=== PATIENT | female | born 1935 | race Caucasian/White ===

== ENCOUNTER 2016-09-22 07:09 | Emergency (ER) | payer MEDICARE, OTHER ==
[~2016-09-22] VITALS: Ht 162.6 cm; Wt 49.0 kg
[~2016-09-22 07:09] MED LIST: HUMSS SQ; HYDR-3533 PO; LANTUS2P SC; LEVO.125; TAMS0.4C67 PO; ZOFR4TAB3 SL
[2016-09-22 07:12] VITALS: BP 128/80; PULSE 91; RESP 17; TEMP 97.5; O2SAT 100
[2016-09-22] MEDS ORDERED: DEXTROSE 50% IN WATER 50 ML VIAL(D50) IV PUSH ONE ×2 (07:45→09:45)
--- NOTE | 2016-09-22 07:49 | PD ---
HPI . Insulin overdose Chief Complaint: Diabetic Time Seen by Provider: 07:19 Travel History International Travel<30 days: No Contact w/Intl Traveler<30days: No Traveled to known affect area: No History of Present Illness HPI Patient presents after accidentally taking the wrong kind of insulin this morning. She took regular instead of NPH. She took 18 units at about 6:30 AM. She has had 2 glycerin protein drinks and has used almost a whole bottle of glycerin tablets. She presents stating that she feels shaky. PFSH Past Medical History Diabetes: Yes Thyroid Disease: Yes Menopausal: Yes Social History Alcohol Use: No Tobacco Use: No Substance Use: No Allergies-Medications (Allergen,Severity, Reaction): Coded Allergies: No Known Allergies (Unverified , 09/22/16) Reported Meds & Prescriptions Reported Meds & Active Scripts Active Reported Levothyroxine (Levothyroxine Sodium) 150 Mcg Tab 150 Mcg PO DAILY Novolog Inj (Insulin Aspart) 1,000 Unit/10 Ml Vial 0 SQ DIRECTED Sliding Scale as directed. [trujera] 17 Unit SQ DAILY Review of Systems Except as stated in HPI: all other systems reviewed are Neg General / Constitutional: Positive: Other (shaky) Physical Exam Narrative GENERAL: Awake and alert and in no acute distress. SKIN: Warm and dry. HEAD: Atraumatic. Normocephalic. EYES: Pupils equal and round. Extraocular movements are intact. NECK: Trachea midline. Neck is supple. CARDIOVASCULAR: Regular rate and rhythm. RESPIRATORY: No accessory muscle use. MUSCULOSKELETAL: No obvious deformities. No edema. NEUROLOGICAL: Awake and alert. No obvious cranial nerve deficits. Motor grossly within normal limits. Normal speech. PSYCHIATRIC: Appropriate mood and affect; insight and judgment normal. Data Data Last Documented VS Vital Signs Date Time Temp Pulse Resp B/P Pulse Ox O2 Delivery O2 Flow Rate FiO2 09/22/16 10:20 82 16 119/50 99 Room Air 09/22/16 07:12 97.5 Orders Diet As Tolerated (09/22/16 07:20) Bedside Glucose LAKESHIA.Q1H (09/22/16 08:00) Dextrose 50% In Rahul (Vial) Inj (D50w (Vi (09/22/16 07:45) Dextrose 50% In Rahul (Vial) Inj (D50w (Vi (09/22/16 09:45) MDM Medical Decision Making Medical Screen Exam Complete: Yes Emergency Medical Condition: Yes Differential Diagnosis Differential diagnosis of weakness includes but is not limited to infection, CVA , electrolyte disturbance, renal failure, hypoglycemia, UTI, ACS, acute blood loss Narrative Course Patient presents after inadvertently taking regular insulin instead of long- acting insulin. Her initial fingerstick blood sugar was 133. However, a repeat fingerstick blood sugar just a few minutes later was in the 30s. She is lucid. We will give her D50 and a food tray and monitor her sugars closely. The patient has required 2 doses of D50. She has been fed to meals. She has had 3 fingerstick blood sugars greater than 100 since her last dose of D50. She will be discharged home. Critical Care Narrative Aggregate critical care time was 45 minutes. Time to perform other separately billable procedures was not included in the critical care time. My time did not include minutes spent treating any other patients simultaneously or on activities that did not directly contribute to the patient's treatment. The services I provided to this patient were to treat and/or prevent clinically significant deterioration due to hypoglycemia I provided critical care services requiring my management, as noted below: Chart data review, documentation time, medication orders and management, vital sign assessments/reviewing monitor data, ordering and reviewing lab tests, ordering and interpreting/reviewing x-rays and diagnostic studies, care of the patient and discussion of the patient with the admitting physicians Diagnosis Primary Impression: Insulin overdose Qualified Code: T38.3X1A - Insulin overdose, accidental or unintentional, initial encounter Patient Instructions: General Instructions Disposition: 01 DISCHARGE HOME Condition: Stable Miriam Rainey MD September 22, 2016 07:49
[2016-09-22] MEDS ORDERED: [UNRECOGNIZED DRUG - OTHER] SQ (08:00)
[2016-09-22] MEDS ORDERED: NOVOLOGP2 SQ (08:00)
[2016-09-22] MEDS ORDERED: LEVO150T7 PO (08:00)
[2016-09-22 08:01] VITALS: BP 137/59; PULSE 84; RESP 16; O2SAT 98
[2016-09-22 10:20] VITALS: BP 119/50; PULSE 82; RESP 16; O2SAT 99
[2016-09-22 11:40] VITALS: BP 120/68; PULSE 70; RESP 16; O2SAT 98
== END 2016-09-22 11:56 | disposition home or self-care (01) ==
LOC: PHED 07:09
DX: T38.3X1A Poisoning by insulin and oral hypoglycemic [antidiabetic] drugs, accidental (unintentional), initial encounter (principal); E11.9 Type 2 diabetes mellitus without complications; Z79.4 Long term (current) use of insulin
CPT/HCPCS: 96374; 96376

== ENCOUNTER 2016-11-11 21:50 | Inpatient (IN) | payer MEDICARE, OTHER ==
[~2016-11-11] VITALS: Ht 162.6 cm; Wt 59.0 kg
[~2016-11-11 21:50] MED LIST changes: -HUMSS SQ; -HYDR-3533 PO; -LANTUS2P SC; -LEVO.125; +LEVO150T7 PO; +NOVOLOGP2 SQ; -TAMS0.4C67 PO; -ZOFR4TAB3 SL; +[UNRECOGNIZED DRUG - OTHER] SQ
[2016-11-11 21:52] VITALS: BP 128/56; PULSE 82; RESP 16; TEMP 97.8; O2SAT 96
[2016-11-11] MEDS ORDERED: SODIUM CHLOR 0.9% 1000 ML INJ 1,000 ML IV SCH (22:27)
[2016-11-11] MEDS ORDERED: HUMALOG SQ (22:28)
[2016-11-11] MEDS ORDERED: ONDANSETRON HCL 4 MG/2 ML VIAL IVP ONE (22:30)
[2016-11-11] MEDS ORDERED: SODIUM CHLORIDE 0.9% FLUSH 10 ML FLUSH IV FLUSH PRN (22:30)
[2016-11-11 22:59] LABS: AUTOMATED NEUTROPHIL # 3.9 TH/MM3 (1.8-7.7); BASOPHIL % 0.3 % (0.0-2.0); EOSINOPHIL % 0.9 % (0.0-4.0); HEMATOCRIT 34.6 % (35.0-46.0); HEMO FLAGS DIFF FINAL; LYMPH % 11.2 % (9.0-44.0); LYMPHOCYTE # 0.6 TH/MM3 (1.0-4.8); MEAN CORPUSCULAR HEMOGLOBIN 28.5 PG (27.0-34.0); MEAN CORPUSCULAR HGB CONC 33.5 % (32.0-36.0); MONO % 8.4 % (0.0-8.0); NEUT % 79.2 % (16.0-70.0); PLATELET COUNT 142 TH/MM3 (150-450); RED BLOOD COUNT 4.07 MIL/MM3 (4.00-5.30); RED CELL DISTRIBUTION WIDTH 12.2 % (11.6-17.2); WHITE BLOOD COUNT 4.9 TH/MM3 (4.0-11.0)
[2016-11-11 23:09] VITALS: BP 129/84; PULSE 92; RESP 19; O2SAT 96
[2016-11-11 23:10] LABS: CHLORIDE 101 MEQ/L (98-107); POTASSIUM 4.3 MEQ/L (3.5-5.1); SODIUM (NA) 139 MEQ/L (136-145)
[2016-11-11 23:14] LABS: ANION GAP 9 MEQ/L (5-15); BICARBONATE 29.4 MEQ/L (21.0-32.0); BLOOD UREA NITROGEN 23 MG/DL (7-18)
[2016-11-11 23:17] LABS: ALT (GPT) 741 U/L (10-53); GLOMERULAR FILTRATION RATE 71 ML/MIN (>89)
[2016-11-11 23:18] LABS: TOTAL BILIRUBIN ADULT 2.2 MG/DL (0.2-1.0)
[2016-11-11 23:19] LABS: ALKALINE PHOSPHATASE 405 U/L (45-117)
[2016-11-11 23:24] LABS: AST (GOT) 1537 U/L (15-37)
--- NOTE | 2016-11-11 23:26 | PD ---
HPI Chief Complaint: Abdominal Pain Time Seen by Provider: 22:07 Travel History International Travel<30 days: No Contact w/Intl Traveler<30days: No Traveled to known affect area: No History of Present Illness HPI This 81-year-old woman who presents to the emergency department complaining of right upper quadrant abdominal pain, rating to the back between her shoulder blades worsening over the past several days, and especially bad this afternoon. She's had a history of gallbladder problems in the past and known cholelithiasis. She was told she needed her gallbladder out about a year or so ago but improved. She was doing well until about a week or so ago she started having intermittent symptoms. This afternoon the symptoms got abruptly worse, more persistent, or so she with vomiting. The symptoms of what a little bit now. She otherwise had been feeling well. She had some chills. Just has some constipation that she treatments taking Pepto-Bismol for her symptoms. History Past Medical History Narrative Medical Diabetes Hypothyroidism History of kidney stones Tetanus Vaccination: Unknown Influenza Vaccination: Yes Menopausal: Yes Social History Alcohol Use: No Tobacco Use: No Allergies-Medications (Allergen,Severity, Reaction): Coded Allergies: No Known Allergies (Unverified , 11/11/16) Reported Meds & Prescriptions Reported Meds & Active Scripts Active Reported Humalog Inj (Insulin Human Lispro) 1,000 Unit/10 Ml Vial 1-9 Units SQ ACHS Max dose at bedtime:( )units; sugars< 70,(0)units; sugars 150-199,(1)unit; sugars 200-249,(3)units; sugars 250-299,(5)units; sugars 300-349,(7)units; sugars more than 349,(9)units. Levothyroxine (Levothyroxine Sodium) 150 Mcg Tab 150 Mcg PO DAILY [trujera] 17 Unit SQ DAILY Review of Systems Except as stated in HPI: all other systems reviewed are Neg Physical Exam Narrative GENERAL: 81-year-old woman, no acute distress. SKIN: Focused skin assessment warm/dry. NECK: Trachea midline. No JVD. CARDIOVASCULAR: Regular rate and rhythm. No murmur appreciated. RESPIRATORY: No accessory muscle use. Clear to auscultation. Breath sounds equal bilaterally. GASTROINTESTINAL: Abdomen is flat and soft. Mild right upper quadrant tenderness. No rebound or guarding. Negative Angel's. MUSCULOSKELETAL: No obvious deformities. No clubbing. No cyanosis. No edema. NEUROLOGICAL: Awake and alert. No obvious cranial nerve deficits. Motor grossly within normal limits. Normal speech. PSYCHIATRIC: Appropriate mood and affect; insight and judgment normal. Data Data Last Documented VS Vital Signs Date Time Temp Pulse Resp B/P Pulse Ox O2 Delivery O2 Flow Rate FiO2 11/12/16 00:28 81 20 106/46 98 Room Air 11/11/16 21:52 97.8 Orders Complete Blood Count With Diff (11/11/16 22:27) Comprehensive Metabolic Panel (11/11/16 22:27) Lipase (11/11/16 22:27) Urinalysis - C+S If Indicated (11/11/16 22:27) Iv Access Insert/Monitor (11/11/16 22:27) NPO (11/11/16 22:27) Ondansetron Inj (Zofran Inj) (11/11/16 22:30) Sodium Chlor 0.9% 1000 Ml Inj (Ns 1000 M (11/11/16 22:27) Sodium Chloride 0.9% Flush (Ns Flush) (11/11/16 22:30) Us Abdomen Gallbladder (11/11/16 ) Sodium Chlor 0.9% 1000 Ml Inj (Ns 1000 M (11/12/16 00:30) Piperacil-Tazo 3.375 Gm Premix (Zosyn 3. (11/12/16 00:30) Ondansetron Inj (Zofran Inj) (11/12/16 00:30) Consult General Surgery (11/12/16 ) Lactic Acid (11/12/16 01:03) Admit Order (Ed Use Only) (11/12/16 ) Labs Laboratory Tests Test 11/11/16 22:45 White Blood Count 4.9 TH/MM3 Red Blood Count 4.07 MIL/MM3 Hemoglobin 11.6 GM/DL Hematocrit 34.6 % Mean Corpuscular Volume 85.0 FL Mean Corpuscular Hemoglobin 28.5 PG Mean Corpuscular Hemoglobin 33.5 % Concent Red Cell Distribution Width 12.2 % Platelet Count 142 TH/MM3 Mean Platelet Volume 10.4 FL Neutrophils (%) (Auto) 79.2 % Lymphocytes (%) (Auto) 11.2 % Monocytes (%) (Auto) 8.4 % Eosinophils (%) (Auto) 0.9 % Basophils (%) (Auto) 0.3 % Neutrophils # (Auto) 3.9 TH/MM3 Lymphocytes # (Auto) 0.6 TH/MM3 Monocytes # (Auto) 0.4 TH/MM3 Eosinophils # (Auto) 0.0 TH/MM3 Basophils # (Auto) 0.0 TH/MM3 CBC Comment DIFF FINAL Differential Comment Sodium Level 139 MEQ/L Potassium Level 4.3 MEQ/L Chloride Level 101 MEQ/L Carbon Dioxide Level 29.4 MEQ/L Anion Gap 9 MEQ/L Blood Urea Nitrogen 23 MG/DL Creatinine 0.78 MG/DL Estimat Glomerular Filtration 71 ML/MIN Rate Random Glucose 275 MG/DL Calcium Level 9.2 MG/DL Total Bilirubin 2.2 MG/DL Aspartate Amino Transf 1537 U/L (AST/SGOT) Alanine Aminotransferase 741 U/L (ALT/SGPT) Alkaline Phosphatase 405 U/L Total Protein 6.8 GM/DL Albumin 3.3 GM/DL Lipase 73 U/L [facility] Medical Decision Making Medical Screen Exam Complete: Yes Emergency Medical Condition: Yes Interpretation(s) LABS: CBC unremarkable CMP remarkable for elevated total glucose, elevated total bilirubin, AST ALT and alkaline phosphatase all elevated Lipase 73 Gallbladder ultrasound: Multiple echogenic densities suggestive of stones [place]. Thickening occult later wall and trace fluid around the gallbladder. Dilated common bile duct at 10 mm. Differential Diagnosis Cholelithiasis, choledocholithiasis, cholecystitis, pancreatitis, gastritis, other Narrative Course medical decision making INITIAL: This is a 81-year-old woman presents to the emergency department with right upper quadrant abdominal pain, waxing and waning, suspicious for biliary colic or some medically lithiasis. Symptoms abruptly worsened today and she could be developing cholecystitis. She overall looks fairly well. We'll check labs and ultrasound, likely admission for cholecystitis versus urgent outpatient evaluation with surgery. Cristo Mike MD Nov 11, 2016 23:26
[2016-11-12] VITALS (16 sets, daily range): BP systolic 98–144; BP diastolic 38–65; PULSE 72–85; RESP 16–24; TEMP 97.6–98.7; O2SAT 95–98
--- NOTE | 2016-11-12 00:21 | RADRPT ---
EXAM DATE/TIME: 11/11/2016 23:42 [facility] COMPARISON: CT ABDOMEN & PELVIS W/O CONTRAST, April 23, 2014, 12:48. INDICATIONS : Right upper quadrant pain. MEDICAL HISTORY : Hypothyroidism. Diabetic. Cholelithiasis. SURGICAL HISTORY : Rotator cuff, left. ENCOUNTER: Subsequent ACUITY: 3 days PAIN SCORE: 3/10 LOCATION: Right upper quadrant MEASUREMENTS: LIVER: 13.4 cm length COMMON DUCT: 10 mm RIGHT KIDNEY: 11.0 x 4.6 x 4.5 cm FINDINGS: LIVER: Normal echotexture without focal lesion or ductal dilatation. COMMON DUCT: No intraluminal mass or stone visualized. GALLBLADDER: Multiple echogenic densities are demonstrated within the gallbladder. There is thickening of the gall bladder wall at 9 mm. There is a trace of fluid around the gallbladder. PANCREAS: The visualized portions are within normal limits. Mild dilatation of the pancreatic duct to 2 mm. RIGHT KIDNEY: No evidence of hydronephrosis. There appears to be a 5 mm nonobstructing stone in the midpole of the right kidney. There is a 7 mm echogenic density in the renal parenchyma the mid pole. This is most li nixon a small angiomyolipoma. CONCLUSION: 1. Multiple echogenic densities are seen within the gallbladder suggestive of stones and polyps. Ther e is thickening of the gallbladder wall and there is a trace of fluid around the gallbladder. These f indings can be demonstrated with either acute or chronic cholecystitis. Recommend correlation with jessi montiel's physical, clinical exam and laboratory values. 2. There is dilatation of the common bile duct at 10 mm. 3. 5 mm nonobstructing stone mid pole right kidney. 4. 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 Tre Brantley MD on November 12, 2016 at 0:13 Board Certified Radiologist. This report was verified electronically.
[2016-11-12] MEDS ORDERED: SODIUM CHLOR 0.9% 1000 ML INJ 1,000 ML IV SCH ×2 (00:30→03:09)
[2016-11-12] MEDS ORDERED: PIPERACIL-TAZO 3.375 GM PREMIX 50 ML IV ONE (00:30)
[2016-11-12] MEDS ORDERED: ONDANSETRON HCL 4 MG/2 ML VIAL IV PUSH ONE (00:30)
[2016-11-12 01:08] LABS: BLOOD, URINE NEG (NEG); KETONE, URINE 15 mg/dL (NEG); NITRITE,URINE NEG (NEG); PH, URINE 6.5 (5.0-8.5)
[2016-11-12 01:09] LABS: GLUCOSE,URINE 1000 OR GREATER mg/dL (NEG)
[2016-11-12 01:42] LABS: URINE COLOR AMBER (YELLW/STRAW)
[2016-11-12 01:43] LABS: MUCUS URINE FEW /lpf (OCC)
[2016-11-12 01:44] LABS: COMMENT (UR) CULT NOT INDICATED; CULTURE IF INDICATED CULT NOT INDICATED; SQUAMOUS EPITHELIAL CELL URINE 0-5 /hpf (0-5); WBC, URINE 0-2 /hpf (0-5)
[2016-11-12] MEDS ORDERED: MISCELLANEOUS NURSING INFORMATION XX SCH (03:15)
[2016-11-12] MEDS ORDERED: SODIUM CHLORIDE 0.9% FLUSH 10 ML FLUSH PRN (03:15)
[2016-11-12] MEDS ORDERED: CHLORHEXIDINE GLUCONATE 2 % 1 PACK (2 CLOTHS) TOP PRN (03:15)
[2016-11-12] MEDS ORDERED: BISACODYL 10 MG SUPP RECTAL PRN (03:15)
[2016-11-12] MEDS ORDERED: ACETAMINOPHEN 325 MG TAB PO PRN (03:15)
[2016-11-12] MEDS ORDERED: MAGNESIUM HYDROXIDE SUSP 30 ML CUP PO PRN (03:15)
[2016-11-12] MEDS ORDERED: LACTULOSE SYRUP 20 GM/30 ML CUP PO PRN (03:15)
[2016-11-12] MEDS ORDERED: SENNOSIDES 8.6 MG TAB PO PRN (03:15)
[2016-11-12] MEDS: CHLORHEXIDINE GLUCONATE 2 % 1 PACK (2 CLOTHS) TOP SCH (04:00)
[2016-11-12] MEDS: ONDANSETRON HCL 4 MG/2 ML VIAL IV PRN ×3 (04:26→19:42)
--- NOTE | 2016-11-12 05:22 | HHI.HP ---
[facility] Service Critical Care Medicine Primary Care Physician Anastacio Gurrola, DO Admission Diagnosis cholecystitis, sepsis Diagnosis: Travel History International Travel<30 Days: No Contact w/Intl Traveler <30 Da: No Traveled to Known Affected Are: No History of Present Illness 81-year-old woman presents complaining of right upper quadrant abdominal pain, rating to the back between her shoulder blades worsening over the past several days, and especially bad this afternoon. She's had a history of gallbladder problems in the past and known cholelithiasis. She was told she needed her gallbladder out about a year or so ago but improved. She was doing well until about a week or so ago she started having intermittent symptoms. This afternoon the symptoms got abruptly worse, more persistent, or so she with vomiting. The symptoms of what a little bit now. She otherwise had been feeling well. She had some chills. Ultrasound of the gallbladder perform at the [place] emergency department confirmed the wall thickening, gallbladder suggesting acute cholecystitis. Review of Systems Constitutional: DENIES: Diaphoretic episodes, Fatigue, Fever, Weight gain, Weight loss, Chills, Dizziness, Change in appetite, Night Sweats Endocrine: DENIES: Abnorml menstrual pattern, Heat/cold intolerance, Polydipsia , Polyuria, Polyphagia Eyes: DENIES: Blurred vision, Diplopia, Eye inflammation, Eye pain, Vision loss , Photosensitivity, Double Vision Ears, nose, mouth, throat: DENIES: Tinnitus, Hearing loss, Vertigo, Nasal discharge, Oral lesions, Throat pain, Hoarseness, Ear Pain, Running Nose, Epistaxis, Sinus Pain, Toothache, Odynophagia Respiratory: DENIES: Apneas, Cough, Snoring, Wheezing, Hemoptysis, Sputum production, Shortness of breath Cardiovascular: DENIES: Chest pain, Palpitations, Syncope, Dyspnea on Exertion , PND, Lower Extremity Edema, Orthopnea, Claudication Gastrointestinal: COMPLAINS OF: Abdominal pain, Constipation, Nausea, Anorexia , DENIES: Black stools, Bloody stools, Diarrhea, Vomiting, Difficulty Swallowing Genitourinary: DENIES: Abnormal vaginal bleeding, Dysmenorrhea, Dyspareunia, Sexual dysfunction, Urinary frequency, Urinary incontinence, Urgency, Hematuria , Dysuria, Nocturia, Vaginal discharge Musculoskeletal: DENIES: Joint pain, Muscle aches, Stiffness, Joint Swelling, Back pain, Neck pain Integumentary: DENIES: Abnormal pigmentation, Pruritus, Rash, Nail changes, Breast masses, Breast skin changes, Nipple discharge Hematologic/lymphatic: DENIES: Bruising, Lymphadenopathy Immunologic/allergic: DENIES: Eczema, Urticaria Neurologic: DENIES: Abnormal gait, Headache, Localized weakness, Paresthesias, Seizures, Speech Problems, Tremor, Poor Balance Psychiatric: DENIES: Anxiety, Confusion, Mood changes, Depression, Hallucinations, Agitation, Suicidal Ideation, Homicidal Ideation, Delusions Past Family Social History Allergies: Coded Allergies: No Known Allergies (Unverified , 11/11/16) Past Medical History Diabetes Hypothyroidism History of kidney stones Past Surgical History None Reported Medications Reported Meds & Active Scripts Active Reported Humalog Inj (Insulin Human Lispro) 1,000 Unit/10 Ml Vial 1-9 Units SQ ACHS Max dose at bedtime:( )units; sugars< 70,(0)units; sugars 150-199,(1)unit; sugars 200-249,(3)units; sugars 250-299,(5)units; sugars 300-349,(7)units; sugars more than 349,(9)units. Levothyroxine (Levothyroxine Sodium) 150 Mcg Tab 150 Mcg PO DAILY [trujera] 17 Unit SQ DAILY Active Ordered Medications Current Medications Medications (Trade) Dose Ordered Sig/Herbert Route PRN Reason Start Time Stop Time Status Last Admin Dose Admin Sodium Chloride (NS 1000 ml Inj) 1,000 ml @ 125 mls/hr Q8H IV 11/12/16 03:09 11/12/16 04:26 Sodium Chloride (NS Flush) 2 ml UNSCH PRN .XX FLUSH AFTER USING IV ACCESS 11/12/16 03:15 Sodium Chloride (NS Flush) 2 ml BID .XX 11/12/16 09:00 Acetaminophen (Tylenol) 650 mg Q6H PRN PO PAIN 1-5 AND/OR FEVER >101F 11/12/16 03:15 Morphine Sulfate (Morphine Inj) 2 mg Q2H PRN IV PUSH PAIN SCALE 6 TO 10 11/12/16 03:30 Famotidine (Pepcid Inj) 20 mg Q12HR IV PUSH 11/12/16 09:00 Ondansetron HCl (Zofran Inj) 4 mg Q6H PRN IV NAUSEA OR VOMITING 11/12/16 03:15 11/12/16 04:26 Zolpidem Tartrate (Ambien) 5 mg HS PRN PO INSOMNIA 11/12/16 03:15 Heparin Sodium (Porcine) (Heparin Inj) 5,000 units Q12H SQ 11/12/16 06:00 Miscellaneous Information 1 Q361D XX 11/12/16 03:15 Chlorhexidine Gluconate (Chlorhexidine 2% Cloth) 3 pack Taper DAILY@04 TOP 11/12/16 04:00 11/08/17 03:59 11/12/16 04:00 Chlorhexidine Gluconate (Chlorhexidine 2% Cloth) 3 pack UNSCH PRN TOP HYGIENIC CARE 11/12/16 03:15 Senna/Docusate Sodium (Adele-Colace) 1 tab BID PO 11/12/16 09:00 Magnesium Hydroxide (Milk Of Magnmj Liq) 30 ml Q12H PRN PO MILD - MODERATE CONSTIPATION 11/12/16 03:15 Sennosides (Senokot) 17.2 mg Q12H PRN PO MODERATE - SEVERE CONSTIPATION 11/12/16 03:15 Bisacodyl (Dulcolax Supp) 10 mg DAILY PRN RECTAL SEVERE CONSITIPATION 11/12/16 03:15 Lactulose 30 ml 30 ml DAILY PRN PO SEVERE CONSITIPATION 11/12/16 03:15 Piperacillin Sod/ Tazobactam Sod (Zosyn 3.375 Gm Premix) 50 ml @ 100 mls/hr Q6H IV 11/12/16 06:00 Family History No family history of early coronary disease no history of cancer Social History No history of tobacco alcohol or illicit drug abuse Physical Exam Vital Signs Vital Signs Date Time Temp Pulse Resp B/P Pulse Ox O2 Delivery O2 Flow Rate FiO2 11/12/16 05:00 97.7 77 16 144/65 96 11/12/16 03:45 81 18 119/53 98 11/12/16 02:22 83 16 106/45 95 Room Air 11/12/16 01:28 85 20 106/47 98 11/12/16 01:15 97.6 11/12/16 01:10 98/38 100/42 11/12/16 00:28 81 20 106/46 98 Room Air 11/11/16 23:09 92 19 129/84 96 11/11/16 21:52 97.8 82 16 128/56 96 Physical Exam GENERAL: Well-nourished, well-developed patient. SKIN: Warm and dry. HEAD: Normocephalic. EYES: No scleral icterus. No injection or drainage. NECK: Supple, trachea midline. No JVD or lymphadenopathy. CARDIOVASCULAR: Regular rate and rhythm without murmurs, gallops, or rubs. RESPIRATORY: Breath sounds equal bilaterally. No accessory muscle use. GASTROINTESTINAL: Abdomen soft, mild tenderness in right upper quadrant, nondistended. MUSCULOSKELETAL: No cyanosis, or edema. BACK: Nontender without obvious deformity. No CVA tenderness. EXTREMITIES: No clubbing cyanosis or edema Laboratory Laboratory Tests Test 11/11/16 11/12/16 11/12/16 22:45 00:34 01:09 White Blood Count 4.9 Red Blood Count 4.07 Hemoglobin 11.6 Hematocrit 34.6 Mean Corpuscular Volume 85.0 Mean Corpuscular Hemoglobin 28.5 Mean Corpuscular Hemoglobin 33.5 Concent Red Cell Distribution Width 12.2 Platelet Count 142 Mean Platelet Volume 10.4 Neutrophils (%) (Auto) 79.2 Lymphocytes (%) (Auto) 11.2 Monocytes (%) (Auto) 8.4 Eosinophils (%) (Auto) 0.9 Basophils (%) (Auto) 0.3 Neutrophils # (Auto) 3.9 Lymphocytes # (Auto) 0.6 Monocytes # (Auto) 0.4 Eosinophils # (Auto) 0.0 Basophils # (Auto) 0.0 CBC Comment DIFF FINAL Differential Comment Sodium Level 139 Potassium Level 4.3 Chloride Level 101 Carbon Dioxide Level 29.4 Anion Gap 9 Blood Urea Nitrogen 23 Creatinine 0.78 Estimat Glomerular Filtration 71 Rate Random Glucose 275 Calcium Level 9.2 Total Bilirubin 2.2 Aspartate Amino Transf 1537 (AST/SGOT) Alanine Aminotransferase 741 (ALT/SGPT) Alkaline Phosphatase 405 Total Protein 6.8 Albumin 3.3 Lipase 73 Urine Color ANTOINETTE Urine Turbidity CLEAR Urine pH 6.5 Urine Specific [place] 1.026 Urine Protein TRACE Urine Glucose (UA) 1000 OR GREATER Urine Ketones 15 Urine Occult Blood NEG Urine Nitrite NEG Urine Bilirubin NEG Urine Leukocyte Esterase NEG Urine WBC 0-2 Urine Squamous Epithelial 0-5 Cells Urine Amorphous Sediment FEW Urine Hyaline Casts 6-9 Urine Mucus FEW Microscopic Urinalysis Comment CULT NOT INDICATED Lactic Acid Level 1.5 Date/Time Procedure Status Source Growth 11/12/16 03:40 Aerobic Blood Culture Received Blood Peripheral Pending 11/12/16 03:40 Anaerobic Blood Culture Received Blood Peripheral Pending Result Diagram: 11/11/16 2245 11/11/162244 Assessment and Plan Assessment and Plan Acute cholecystitis - With cholelithiasis - Elevated LFTs - MRCP - Empiric Zosyn - Management per general surgery Hypothyroidism - Levothyroxine Diabetes - Hold long acting insulins prior surgery while nothing by mouth - Insulin sliding scale DVT GI prophylaxis - Teds SCDs subcutaneous heparin and Pepcid Critical Care: The total critical care time was 35 minutes. Time to perform other separately billable procedures was not included in the critical care time. Ben Whittington MD Nov 12, 2016 05:22
[2016-11-12] MEDS ORDERED: DEXTROSE 50% IN WATER 50 ML VIAL(D50) IV PRN (05:30)
[2016-11-12] MEDS ORDERED: GLUCAGON 1 MG/ML VIAL OTHER PRN (05:30)
[2016-11-12] MEDS: HEPARIN SODIUM - SQ 10,000 UNITS/ML VIAL SQ SCH ×2 (06:10→18:09)
[2016-11-12] MEDS: PIPERACIL-TAZO 3.375 GM PREMIX 50 ML IV SCH ×3 (06:10→18:10)
[2016-11-12] MEDS: INSULIN ASPART SUPPLEMENTAL SCALE SQ SCH ×4 (06:29→21:00)
[2016-11-12] MEDS: LEVOTHYROXINE SODIUM 150 MCG TAB PO SCH (09:20)
[2016-11-12] MEDS: DOCUSATE SODIUM 50 MG/SENNA 8.6 MG TAB PO SCH ×2 (09:20→21:00)
[2016-11-12] MEDS: FAMOTIDINE 20 MG/2 ML VIAL IV PUSH SCH ×2 (09:20→21:27)
[2016-11-12] MEDS: SODIUM CHLORIDE 0.9% FLUSH 10 ML FLUSH SCH ×2 (09:20→21:27)
--- NOTE | 2016-11-12 09:59 | PD.CONS ---
cc: Morris Thomas MD [facility] Service CONSULTATION NOTE FOR SURGICAL ATTENDING, DR. MORRIS THOMAS General Surgery Consult Requested By Dr. Whittington Reason for Consult RUQ pain and acute cholecystitis Primary Care Physician Anastacio Gurrola DO History of Present Illness This is a 81 year old female with a past medical history of diabetes mellitus, hypothyroidism, and a history of kidney stones who just moved to the [facility] from [place]. She developed severe right upper quadrant pain that radiates to her back and between her shoulder blades approximately 1 week ago. On afternoon, the pain was so severe she had an appointment with her Primary Care Provider who consulted her to a [employer] (Dr. Coto) . The earliest appointment they had was for November 22. She called her Primary Care Provider back and she prescribed her narcotic pain medications. She does report she has had gallbladder issues in the past. She does have dietary intolerance. An ultrasound of the gallbladder was obtained which showed gallbladder wall thickening and acute cholecystitis. Her white blood cell count is normal. She does have elevated liver enzymes. An MRCP has been ordered to evaluate for common bile duct stone. A General Surgery consultation has been requested for evaluation of acute cholecystitis and laparoscopic cholecystectomy. Review of Systems ROS Limitations: Clinical Condition (awake alert) Constitutional: COMPLAINS OF: Fatigue, Change in appetite Endocrine: DENIES: Polydipsia, Polyuria, Polyphagia Eyes: DENIES: Blurred vision, Diplopia Ears, nose, mouth, throat: DENIES: Hearing loss Respiratory: DENIES: Apneas, Cough Cardiovascular: DENIES: Chest pain Gastrointestinal: COMPLAINS OF: Abdominal pain, Nausea, Vomiting, Anorexia Genitourinary: DENIES: Urinary frequency Musculoskeletal: DENIES: Joint pain Integumentary: DENIES: Abnormal pigmentation Hematologic/lymphatic: DENIES: Bruising Immunologic/allergic: DENIES: Eczema Neurologic: DENIES: Headache, Localized weakness Psychiatric: DENIES: Mood changes, Depression, Hallucinations Past Family Social History Past Medical History Diabetes mellitus Hypothyroidism Past Surgical History Rotator cuff surgery ENT procedures for sinus congestion Lithotripsy Reported Medications Humalog insulin Levothyroxine Allergies: Coded Allergies: No Known Allergies (Unverified , 11/11/16) Active Ordered Medications Current Medications Medications (Trade) Dose Ordered Sig/Herbert Route Start Time Stop Time Status Last Admin (NS 1000 ml Inj) 1,000 ml @ 125 mls/hr Q8H IV 11/12/16 03:09 11/12/16 04:26 (NS Flush) 2 ml UNSCH PRN .XX 11/12/16 03:15 (NS Flush) 2 ml BID .XX 11/12/16 09:00 11/12/16 09:20 (Tylenol) 650 mg Q6H PRN PO 11/12/16 03:15 (Morphine Inj) 2 mg Q2H PRN IV PUSH 11/12/16 03:30 (Pepcid Inj) 20 mg Q12HR IV PUSH 11/12/16 09:00 11/12/16 09:20 (Zofran Inj) 4 mg Q6H PRN IV 11/12/16 03:15 11/12/16 04:26 (Ambien) 5 mg HS PRN PO 11/12/16 03:15 (Heparin Inj) 5,000 units Q12H SQ 11/12/16 06:00 11/12/16 06:10 Miscellaneous Information 1 Q361D XX 11/12/16 03:15 11/12/16 03:15 (Chlorhexidine 2% Cloth) 3 pack Taper DAILY@04 TOP 11/12/16 04:00 11/08/17 03:59 11/12/16 04:00 (Chlorhexidine 2% Cloth) 3 pack UNSCH PRN TOP 11/12/16 03:15 (Adele-Colace) 1 tab BID PO 11/12/16 09:00 11/12/16 09:20 (Milk Of Magnesia Liq) 30 ml Q12H PRN PO 11/12/16 03:15 (Senokot) 17.2 mg Q12H PRN PO 11/12/16 03:15 (Dulcolax Supp) 10 mg DAILY PRN RECTAL 11/12/16 03:15 Lactulose 30 ml 30 ml DAILY PRN PO 11/12/16 03:15 (Zosyn 3.375 Gm Premix) 50 ml @ 100 mls/hr Q6H IV 11/12/16 06:00 11/12/16 06:10 (Synthroid) 150 mcg DAILY@0600 PO 11/12/16 09:00 11/12/16 09:20 (D50w (Vial) Inj) 50 ml UNSCH PRN IV 11/12/16 05:30 (Glucagon Inj) 1 mg UNSCH PRN OTHER 11/12/16 05:30 Family History Noncontributory Social History Denies tobacco use Denies EtOH use Denies illicit drug use Physical Exam Vital Signs Vital Signs Date Time Temp Pulse Resp B/P Pulse Ox O2 Delivery O2 Flow Rate FiO2 11/12/16 06:00 79 11/12/16 05:00 97.7 77 16 144/65 96 11/12/16 03:45 81 18 119/53 98 11/12/16 02:22 83 16 106/45 95 Room Air 11/12/16 01:28 85 20 106/47 98 11/12/16 01:15 97.6 11/12/16 01:10 98/38 100/42 11/12/16 00:28 81 20 106/46 98 Room Air 11/11/16 23:09 92 19 129/84 96 11/11/16 21:52 97.8 82 16 128/56 96 Physical Exam GENERAL: Pleasant 81 year old female resting in bed in no acute distress. SKIN: Warm and dry. HEAD: Atraumatic. Normocephalic. EYES: Pupils equal and round. No scleral icterus. No injection or drainage. ENT: No nasal bleeding or discharge. Mucous membranes pink and moist. NECK: Trachea midline. CARDIOVASCULAR: Regular rate and rhythm. RESPIRATORY: No accessory muscle use. Clear to auscultation. Breath sounds equal bilaterally. GASTROINTESTINAL: Abdomen soft, minimally tender to palpation in RUQ, nondistended. No visible scars on abdomen. MUSCULOSKELETAL: Extremities without clubbing, cyanosis, or edema. No obvious deformities. NEUROLOGICAL: Awake and alert. No obvious cranial nerve deficits. Motor grossly within normal limits. Five out of 5 muscle strength in the arms and legs. Normal speech. PSYCHIATRIC: Appropriate mood and affect; insight and judgment normal. Laboratory Laboratory Tests Test 11/11/16 11/12/16 11/12/16 11/12/16 22:45 00:34 01:09 05:08 White Blood Count 4.9 TH/MM3 Red Blood Count 4.07 MIL/MM3 Hemoglobin 11.6 GM/DL Hematocrit 34.6 % Mean Corpuscular Volume 85.0 FL Mean Corpuscular Hemoglobin 28.5 PG Mean Corpuscular Hemoglobin 33.5 % Concent Red Cell Distribution Width 12.2 % Platelet Count 142 TH/MM3 Mean Platelet Volume 10.4 FL Neutrophils (%) (Auto) 79.2 % Lymphocytes (%) (Auto) 11.2 % Monocytes (%) (Auto) 8.4 % Eosinophils (%) (Auto) 0.9 % Basophils (%) (Auto) 0.3 % Neutrophils # (Auto) 3.9 TH/MM3 Lymphocytes # (Auto) 0.6 TH/MM3 Monocytes # (Auto) 0.4 TH/MM3 Eosinophils # (Auto) 0.0 TH/MM3 Basophils # (Auto) 0.0 TH/MM3 CBC Comment DIFF FINAL Differential Comment Sodium Level 139 MEQ/L Potassium Level 4.3 MEQ/L Chloride Level 101 MEQ/L Carbon Dioxide Level 29.4 MEQ/L Anion Gap 9 MEQ/L Blood Urea Nitrogen 23 MG/DL Creatinine 0.78 MG/DL Estimat Glomerular Filtration 71 ML/MIN Rate Random Glucose 275 MG/DL Calcium Level 9.2 MG/DL Total Bilirubin 2.2 MG/DL Aspartate Amino Transf 1537 U/L (AST/SGOT) Alanine Aminotransferase 741 U/L (ALT/SGPT) Alkaline Phosphatase 405 U/L Total Protein 6.8 GM/DL Albumin 3.3 GM/DL Lipase 73 U/L Urine Color ANTOINETTE Urine Turbidity CLEAR Urine pH 6.5 Urine Specific [place] 1.026 Urine Protein TRACE mg/dL Urine Glucose (UA) 1000 OR GREATER mg/dL Urine Ketones 15 mg/dL Urine Occult Blood NEG Urine Nitrite NEG Urine Bilirubin NEG Urine Leukocyte Esterase NEG Urine WBC 0-2 /hpf Urine Squamous Epithelial 0-5 /hpf Cells Urine Amorphous Sediment FEW Urine Hyaline Casts 6-9 /lpf Urine Mucus FEW /lpf Microscopic Urinalysis Comment CULT NOT INDICATED Lactic Acid Level 1.5 mmol/L Prealbumin 12 MG/DL Test 11/12/16 05:30 Nasal Screen MRSA (PCR) MRSA NOT DETECTED Laboratory Tests Test 11/11/16 11/12/16 11/12/16 11/12/16 22:45 00:34 01:09 05:08 White Blood Count 4.9 Red Blood Count 4.07 Hemoglobin 11.6 Hematocrit 34.6 Mean Corpuscular Volume 85.0 Mean Corpuscular Hemoglobin 28.5 Mean Corpuscular Hemoglobin 33.5 Concent Red Cell Distribution Width 12.2 Platelet Count 142 Mean Platelet Volume 10.4 Neutrophils (%) (Auto) 79.2 Lymphocytes (%) (Auto) 11.2 Monocytes (%) (Auto) 8.4 Eosinophils (%) (Auto) 0.9 Basophils (%) (Auto) 0.3 Neutrophils # (Auto) 3.9 Lymphocytes # (Auto) 0.6 Monocytes # (Auto) 0.4 Eosinophils # (Auto) 0.0 Basophils # (Auto) 0.0 CBC Comment DIFF FINAL Differential Comment Sodium Level 139 Potassium Level 4.3 Chloride Level 101 Carbon Dioxide Level 29.4 Anion Gap 9 Blood Urea Nitrogen 23 Creatinine 0.78 Estimat Glomerular Filtration 71 Rate Random Glucose 275 Calcium Level 9.2 Total Bilirubin 2.2 Aspartate Amino Transf 1537 (AST/SGOT) Alanine Aminotransferase 741 (ALT/SGPT) Alkaline Phosphatase 405 Total Protein 6.8 Albumin 3.3 Lipase 73 Urine Color ANTOINETTE Urine Turbidity CLEAR Urine pH 6.5 Urine Specific [place] 1.026 Urine Protein TRACE Urine Glucose (UA) 1000 OR GREATER Urine Ketones 15 Urine Occult Blood NEG Urine Nitrite NEG Urine Bilirubin NEG Urine Leukocyte Esterase NEG Urine WBC 0-2 Urine Squamous Epithelial 0-5 Cells Urine Amorphous Sediment FEW Urine Hyaline Casts 6-9 Urine Mucus FEW Microscopic Urinalysis Comment CULT NOT INDICATED Lactic Acid Level 1.5 Prealbumin 12 Date/Time Procedure Status Source Growth 11/12/16 03:40 Aerobic Blood Culture Received Blood Peripheral Pending 11/12/16 03:40 Anaerobic Blood Culture Received Blood Peripheral Pending Result Diagram: 11/11/165 11/11/165 Imaging Last Impressions Cholangiopancreatography MRI 11/12/16 0000 Signed Impressions: Service Date/Time: Saturday, November 12, 2016 12:45 - CONCLUSION: Numerous gallstones with at least one filling defect in the distal common bile duct which is dilated to 11 mm. Bilateral lower lobe atelectasis. Bilateral breast augmentation. Cristo Fields MD Gall Bladder Ultrasound 11/11/16 0000 Signed Impressions: Service Date/Time: Friday, November 11, 2016 23:42 - CONCLUSION: 1. Multiple echogenic densities are seen within the gallbladder suggestive of stones and polyps. There is thickening of the gallbladder wall and there is a trace of fluid around the gallbladder. These findings can be demonstrated with either acute or chronic cholecystitis. Recommend correlation with patient's physical, clinical exam and laboratory values. 2. There is dilatation of the common bile duct at 10 mm. 3. 5 mm nonobstructing stone mid pole right kidney. 4. 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 Tre Brantley MD Assessment and Plan Problem List: (1) Acute cholecystitis due to biliary calculus (2) Gallstones and inflammation of gallbladder with obstruction (3) Common bile duct (CBD) obstruction (4) Blood glucose elevated (5) Abdominal pain (6) Elevated LFTs (7) Abnormal findings on diagnostic imaging of liver and biliary tract (8) Abnormal findings on imaging of biliary tract (9) Right upper quadrant abdominal pain Assessment and Plan 81 year old female with RUQ; acute cholecystitis -Elevated liver enzyme -MRCP today shows common duct stones -NPO -IVF - GI consult (she had been referred to Dr. Coto as an outpatient) pending results of MRCP -Follow labs -Will plan for laparoscopic cholecystectomy timing pending clinical state -Thank you for this consult; we will follow with you Discussed Condition With Dr. Martha De Luna Attending Statement NOTE FOR SURGICAL ATTENDING, DR. MORRIS THOMAS I agree with above assessment and plan. The exam, history, and the medical decision-making described in the above note were completed with the assistance of the mid-level provider. I reviewed and agree with the findings presented. Patient seen in the ICU Discussed plan ERCP Dr. Woodson tomorrow 8 AM Tentatively schedule surgery Follow LFTs I attest that I had a [id number] encounter with the patient on the same day, and personally performed and documented my assessment and findings in the medical record. The following services were provided during this hospital visit: Chart data review, vital sign assessments/reviewing monitor data Review of consultations notes if present. Medication orders/review and/or management Ordering and/or reviewing lab tests Ordering and/or interpreting/reviewing x-rays and/or diagnostic studies Care of the patient and discussion of the patient with the care team Documentation time To help prompt me to consider important information that might be impacting today's encounter and assessment, information from prior notes written by myself or my colleagues may have been "brought forward/copy and pasted" into today's note. Problem Qualifiers (1) Gallstones and inflammation of gallbladder with obstruction: Qualified Code: K80.67 - Calculus of gallbladder and bile duct with acute on chronic cholecystitis, with obstruction (2) Abdominal pain: Qualified Code: R10.11 - Right upper quadrant abdominal pain Nirali Patel Nov 12, 2016 09:59 Morris Thomas MD Nov 12, 2016 16:30
--- NOTE | 2016-11-12 13:16 | RADRPT ---
EXAM DATE/TIME: 11/12/2016 12:45 [facility] COMPARISON: No previous studies available for comparison. INDICATIONS : Abnormal US with abdominal pain. MEDICAL HISTORY : Diabetes mellitus type 2. kidnet and gall stones SURGICAL HISTORY : rotator cuff, cataract, kidney stone ENCOUNTER: Subsequent ACUITY: 2 day PAIN SCORE: 3/10 LOCATION: abdomen TECHNIQUE: Multiplanar, multisequence magnetic resonance imaging of the abdomen was performed. High-resolution 3D dataset was utilized to reconstruct maximum-intensity projection (MIP) images. FINDINGS: INTRAHEPATIC BILE DUCTS: Within normal limits. No significant anatomical variant is present. EXTRAHEPATIC BILE DUCTS: The common bile duct measures <11mm> in the distal common bile duct . On the 3-D T2 images there is a defined filling defect measuring 5 mm across. GALLBLADDER: Numerous stones, with no evidence of wall thickening, or pericholecystic fluid. LIVER: Normal size and signal intensity. No concerning liver lesion is identified on this non-contrast exam. PANCREAS: The main pancreatic duct is normal in size. There is no significant anatomical variant. Signal inte nsity is within normal limits. No mass is visualized on this non-contrast exam. OTHER: The remaining visualized structures demonstrate no acute abnormality on this non-contrast exam. Kalie st augmentation. Atelectasis at both lung bases CONCLUSION: Numerous gallstones with at least one filling defect in the distal common bile duct which is dilated to 11 mm. Bilateral lower lobe atelectasis. Bilateral breast augmentation. Cristo Fields MD on November 12, 2016 at 13:12 Board Certified Radiologist. This report was verified electronically.
[2016-11-12] MEDS: DEXT 5%-NACL 0.9% 1000 ML INJ 1,000 ML IV SCH ×2 (14:00→21:27)
--- NOTE | 2016-11-12 19:25 | MB ---
cc: CORNELIA TABARES M.D., GERALD R. D.O. BIANCHI, JOSEPH D. M.D. DATE OF CONSULTATION: 11/12/2016. REASON FOR CONSULTATION: The patient is an 81-year-old white female I was asked to see for further evaluation and management of common bile duct stone. DATE OF : 1935 HISTORY OF PRESENT ILLNESS: Before March, in [place], [place], she was advised undergo cholecystectomy because of symptomatic gallbladder disease. Gallstones were present. Her symptoms improved and she put it off because of her move to this area. About nine ago, she started having right upper quadrant discomfort again with some vomiting of food and then dry heaves. No fever or chills. She noticed intermittently dark urine but she tells me she has been drinking a lot less because of the pain and vomiting. She has had no jaundice. She has intermittent itching. PAST MEDICAL HISTORY: 1. Diabetes. 2. Hypothyroidism. PAST SURGICAL HISTORY: 1. Rotator cuff surgery. 2. ENT surgery for a sinus problem. 3. Lithotripsy for nephrolithiasis. MEDICATIONS ON ADMISSION: 1. Humalog insulin. 2. Levothyroxine. ALLERGIES: NONE KNOWN TO MEDICATIONS. SOCIAL HISTORY: Tobacco use - none. Alcohol use - none. FAMILY HISTORY: Breast cancer. Liver cancer. Colon cancer. Pancreatitis. REVIEW OF SYSTEMS: The patient's last colonoscopy was performed well over ten years ago. She denies lower GI symptomatology. She has had no heartburn or dysphagia or odynophagia. No history of strokes or seizures. No headaches. No vision difficulties. No auditory problems. No urinary symptomatology except for the recent dark urine. No polydipsia or polyuria. No respiratory difficulties. No chest discomforts or palpitations. No history of pancreatic or liver disease. No history of adrenal disease. No current joint pains. No new rashes of any sort. No abnormal bruising. No neurologic symptoms. She has been somewhat depressed since her son . PHYSICAL EXAMINATION: WEIGHT: 52 kg. VITAL SIGNS: Temperature 97.7, pulse 76, blood pressure 144/65. GENERAL: She is alert. She is oriented x3. HEAD, EYES, EARS, NOSE, THROAT: She is anicteric. Extraocular motions are intact. LYMPHATIC: I appreciate no submandibular, cervical, supraclavicular, axillary or epitrochlear adenopathy. LUNGS: Clear to auscultation. HEART: Regular rate and rhythm. No gross murmur or gallop. ABDOMEN: Good bowel sounds with no appreciable bruit. The abdomen is soft and there is mild epigastric tenderness. No masses or hepatosplenomegaly are noted. No Angel's sign is evident. EXTREMITIES: No pedal edema. She does have bilateral Dupuytren's contractures. No palmar erythema. LABORATORY FINDINGS: On admission today, white count 4.9, hemoglobin 11.6, MCV 85, platelets 142,000. Sodium 139, potassium 4.3, BUN 23, creatinine 0.78, lactic acid 1.5, bilirubin 2.2, AST 1537, ALT 741, alkaline phosphatase 405, albumin 3.3, lipase normal at 73. Urinalysis shows 1000 or greater glucose. IMAGING STUDIES: I reviewed the MRCP with the radiologist. Gallstones are evident and at least one distal bile duct stone is evident. The bile duct measures 11 mm in diameter and mild bilateral lower lobe atelectasis is evident. IMPRESSION: Choledocholithiasis without cholangitis. Zosyn has been started. There is no clinical evidence of cholecystitis at this time. We will schedule ERCP with sphincterotomy and stone extraction for tomorrow morning. I have explained the procedure to the patient including potential risks of medication reaction, bleeding, perforation and the risk of pancreatitis. Will prophylax her with indomethacin suppositories. At some point down the road when convenient, follow up screening colonoscopy is indicated because of her family history of colon cancer. MD KAILASH Constantino/SWATHI /5:17 PM /7:19 PM
[2016-11-13] VITALS (10 sets, daily range): BP systolic 124–184; BP diastolic 60–77; PULSE 64–80; RESP 2–18; TEMP 97.4–98.8; O2SAT 91–99
[2016-11-13] MEDS: PIPERACIL-TAZO 3.375 GM PREMIX 50 ML IV SCH ×5 (00:57→23:36)
[2016-11-13] MEDS: CHLORHEXIDINE GLUCONATE 2 % 1 PACK (2 CLOTHS) TOP SCH ×2 (00:58→23:37)
[2016-11-13 04:12] LABS: AUTOMATED NEUTROPHIL # 2.3 TH/MM3 (1.8-7.7); BASOPHIL % 0.5 % (0.0-2.0); EOSINOPHIL # 0.1 TH/MM3 (0-0.4); EOSINOPHIL % 2.4 % (0.0-4.0); HEMATOCRIT 29.3 % (35.0-46.0); HEMO FLAGS DIFF FINAL; LYMPH % 24.3 % (9.0-44.0); LYMPHOCYTE # 0.9 TH/MM3 (1.0-4.8); MEAN CELL VOLUME 86.5 FL (80.0-100.0); MEAN CORPUSCULAR HEMOGLOBIN 28.5 PG (27.0-34.0); MONO % 9.8 % (0.0-8.0); PLATELET COUNT 124 TH/MM3 (150-450); RED BLOOD COUNT 3.39 MIL/MM3 (4.00-5.30); WHITE BLOOD COUNT 3.7 TH/MM3 (4.0-11.0)
[2016-11-13 04:37] LABS: ALT (GPT) 396 U/L (10-53); ANION GAP 9 MEQ/L (5-15); AST (GOT) 306 U/L (15-37); BICARBONATE 24.5 MEQ/L (21.0-32.0); BLOOD UREA NITROGEN 15 MG/DL (7-18); CHLORIDE 110 MEQ/L (98-107); GLOMERULAR FILTRATION RATE 73 ML/MIN (>89); MAGNESIUM 1.5 MG/DL (1.5-2.5); POTASSIUM 3.7 MEQ/L (3.5-5.1); SODIUM (NA) 143 MEQ/L (136-145)
[2016-11-13 04:40] LABS: ALKALINE PHOSPHATASE 265 U/L (45-117); TOTAL BILIRUBIN ADULT 0.8 MG/DL (0.2-1.0)
[2016-11-13] MEDS: HEPARIN SODIUM - SQ 10,000 UNITS/ML VIAL SQ SCH (04:44)
[2016-11-13] MEDS: LEVOTHYROXINE SODIUM 150 MCG TAB PO SCH (04:44)
[2016-11-13] MEDS: DEXT 5%-NACL 0.9% 1000 ML INJ 1,000 ML IV SCH (04:45)
[2016-11-13] MEDS: INSULIN ASPART SUPPLEMENTAL SCALE SQ SCH ×5 (06:31→23:36)
[2016-11-13] MEDS ORDERED: INDOMETHACIN 50 MG SUPP RECTAL ONE (08:00)
--- NOTE | 2016-11-13 08:44 | PD.TRANSFR ---
Transfer Summary Admission Date Nov 12, 2016 at 01:05 Admitting Diagnosis cholecystitis, sepsis Diagnoses: (1) Acute cholangitis Diagnosis: Principal (2) Sepsis Diagnosis: Principal (3) Gallbladder & bile duct stone with obstruction Diagnosis: Principal (4) Elevated LFTs Diagnosis: Principal Transfer Summary/Subjective 81-year-old woman presents complaining of right upper quadrant abdominal pain, radiating to the back between her shoulder blades worsening over the past several days. She's had a history of gallbladder problems in the past and known cholelithiasis. She was told she needed her gallbladder out about a year or so ago but improved. She was doing well until about a week or so ago she started having intermittent symptoms. This afternoon the symptoms got abruptly worse, more persistent, or so she with vomiting. The symptoms of what a little bit now. She otherwise had been feeling well. She had some chills. Ultrasound of the gallbladder perform at the [place] emergency department confirmed the wall thickening, gallbladder suggesting acute cholecystitis. SUBJ 11/13: MRCP done yesterday showed numerous Gallstones and at least one distal bile duct stone. The bile duct measured 11 mm in diameter. Plan for ERCP with sphincterotomy and stone extraction today with Dr. Woodson Objective Vital Signs Date Time Temp Pulse Resp B/P Pulse Ox O2 Delivery O2 Flow Rate FiO2 11/13/16 06:00 66 11/13/16 04:00 98.4 2 129/61 91 11/12/16 02:22 Room Air Intake and Output 11/12/16 11/12/16 11/13/16 08:00 16:00 00:00 Intake Total 2244 ml 1023 ml 763 ml Output Total 0 ml 400 ml Balance 2244 ml 623 ml 763 ml Result Diagram: 11/13/16 0353 11/13/16 0353 Objective Remarks GENERAL: Well-nourished, well-developed patient. No acute distress SKIN: Warm and dry. HEAD: Normocephalic. EYES: No scleral icterus. No injection or drainage. NECK: Supple, trachea midline. No JVD or lymphadenopathy. CARDIOVASCULAR: Regular rate and rhythm without murmurs, gallops, or rubs. RESPIRATORY: Breath sounds equal bilaterally. No accessory muscle use. GASTROINTESTINAL: Abdomen soft, mild tenderness in right upper quadrant, nondistended. MUSCULOSKELETAL: No cyanosis, or edema. BACK: Nontender without obvious deformity. No CVA tenderness. EXTREMITIES: No clubbing cyanosis or edema A/P Assessment and Plan Acute cholangitis/cholecystitis - Cholelithiasis, and choledocholithiasis with probable cholangitis confirmed on MRCP - Plan for ERCP with sphincterotomy and stone extraction today with Dr. Woodson - Empiric Zosyn - Management per general surgery, GI Hypothyroidism - Continue Levothyroxine Diabetes - Hold long acting insulins prior surgery while nothing by mouth - Insulin sliding scale DVT GI prophylaxis - Teds SCDs subcutaneous heparin and Pepcid Critical Care: Level 2 Consult [facility] to assume care in am. Can transfer to Med Surg in the after noon after ERCP if ok with GI Jil Coe MD Nov 13, 2016 08:44
[2016-11-13] MEDS ORDERED: DEXT 5%-NACL 0.9% 1000 ML INJ 1,000 ML IV SCH (08:45)
[2016-11-13] MEDS ORDERED: IOHEXOL 300 MG/ML 50 ML BTL (for RAD DIAG) OTHER ONE (08:51)
[2016-11-13] MEDS ORDERED: PROPOFOL 200 MG/20 ML AMP IV ONE (08:52)
--- NOTE | 2016-11-13 09:51 | GIPROC ---
[facility] [address] [facility]. [facility] [place], [id number] ERCP PROCEDURE REPORT EXAM DATE: 11/13/2016 PATIENT NAME: Chandni De Luna MR #: [id number] BIRTHDATE: 1935 ATTENDING: Zeke Woodson MD ORDER #: [id number] DRIVER MATERIAL HANDLER: Chuck Estevez and Romario Rojo STATUS: inpatient INDICATIONS: The patient is a 81 yr old female here for an ERCP due to choledochlithiasis PROCEDURE PERFORMED: ERCP with shincterotomy and stone extraction MEDICATIONS: Per Anesthesia CONSENT: The patient understands the risks and benefits of the procedure and understands that these risks include, but are not limited to: sedation, allergic reaction, infection, perforation and/or bleeding. Alternative means of evaluation and treatment include, among others: physical exam, x-rays, and/or surgical intervention. The patient elects to proceed with this endoscopic procedure. medical equipment was checked for proper function. Hand hygiene and appropriate measures for infection prevention was taken. After the risks, benefits and alternatives of the procedure were thoroughly explained, Informed was verified, confirmed and timeout was successfully executed by the treatment team. With the patient in left semi-prone position, medications were administered intravenously.The [employer]ax [id number] was passed from the mouth into the esophagus and further advanced from the esophagus into the stomach. From stomach scope was directed to the . Major papilla was aligned with the duodenoscope. The scope position was confirmed fluoroscopically. Rest of the findings/therapeutics are given below. The scope was then completely withdrawn from the patient and the procedure completed. The pulse, BP, and O2 saturation were monitored and documented by the physician and the nursing staff throughout the entire procedure. The patient was cared for as planned according to standard protocol. The patient was then discharged to recovery in stable condition and with appropriate post procedure care. NL esophagus, stomach, duodenum, ampulla, pahcreatic duct. 7mm CBD stone; 10mm sphincterotomy; stone extracted with an 11.5mm ballloon which passed freely three times. No residual filling defects; good drainage. ADVERSE EVENT: None IMPRESSIONS: Ad above RECOMMENDATIONS: NPO until Noon, then clear liquid diet. REPEAT EXAM: Zeke Woodson MD eSigned: Zeke Woodson MD 11/13/2016 9:51 AM cc: Anastacio Meredith M.D. PATIENT NAME: Chandni De Luna MR#: [id number]
[2016-11-13] MEDS ORDERED: DO NOT ADM ANY ANTICOAGULANT DRUGS PRN (10:07)
[2016-11-13] MEDS ORDERED: *ONDANSETRON 4 MG VIAL PERIprocedural Use ONLY ONE (10:19)
[2016-11-13] MEDS ORDERED: *LABETALOL HCL 100 MG/20 ML VIAL PERIprocedural Use ONLY ONE (10:30)
[2016-11-13] MEDS ORDERED: *MEPERIDINE 25 MG INJ VIAL PERIprocedural Use ONLY ONE (10:32)
--- NOTE | 2016-11-13 10:43 | RADRPT ---
EXAM DATE/TIME: 11/13/2016 08:58 [facility] COMPARISON: No previous studies available for comparison. INDICATIONS : Obstruction, stone removal and sphincterotomy. FLUORO TIME: 3.36 minutes IMAGE COUNT: 4 CONTRAST: Instilled by Ordering Physician MEDICAL HISTORY : Renal calculi. Diabetes mellitus type 2, Gallstones SURGICAL HISTORY : None. ENCOUNTER: Initial ACUITY: 1 day PAIN SCORE: Non-responsive. LOCATION: Right upper quadrant FINDINGS: An ERCP was performed by the ordering physician. The images demonstrate no residual filling defects on the delayed images CONCLUSION: ERCP as above. Cristo Fields MD on November 13, 2016 at 10:41 Board Certified Radiologist. This report was verified electronically.
--- NOTE | 2016-11-13 11:11 | HHI.PR ---
Subjective Subjective Notes DAILY PROGRESS NOTE FOR SURGICAL ATTENDING, DR. ARNAV THOMAS Patient had ERCP Doing well Objective Vitals/I&O Vital Signs Date Time Temp Pulse Resp B/P Pulse Ox O2 Delivery O2 Flow Rate FiO2 11/13/16 10:00 97.2 69 18 175/82 94 Nasal Cannula 3 Labs Laboratory Tests Test 11/13/16 03:53 White Blood Count 3.7 Red Blood Count 3.39 Hemoglobin 9.7 Hematocrit 29.3 Mean Corpuscular Volume 86.5 Mean Corpuscular Hemoglobin 28.5 Mean Corpuscular Hemoglobin 33.0 Concent Red Cell Distribution Width 13.0 Platelet Count 124 Mean Platelet Volume 10.0 Neutrophils (%) (Auto) 63.0 Lymphocytes (%) (Auto) 24.3 Monocytes (%) (Auto) 9.8 Eosinophils (%) (Auto) 2.4 Basophils (%) (Auto) 0.5 Neutrophils # (Auto) 2.3 Lymphocytes # (Auto) 0.9 Monocytes # (Auto) 0.4 Eosinophils # (Auto) 0.1 Basophils # (Auto) 0.0 CBC Comment DIFF FINAL Differential Comment Sodium Level 143 Potassium Level 3.7 Chloride Level 110 Carbon Dioxide Level 24.5 Anion Gap 9 Blood Urea Nitrogen 15 Creatinine 0.76 Estimat Glomerular Filtration 73 Rate Random Glucose 267 Lactic Acid Level 0.8 Calcium Level 8.1 Phosphorus Level 1.6 Magnesium Level 1.5 Total Bilirubin 0.8 Aspartate Amino Transf 306 (AST/SGOT) Alanine Aminotransferase 396 (ALT/SGPT) Alkaline Phosphatase 265 Total Protein 5.2 Albumin 2.5 Date/Time Procedure Status Source Growth 11/12/16 03:40 Aerobic Blood Culture Received Blood Peripheral Pending 11/12/16 03:40 Anaerobic Blood Culture Received Blood Peripheral Pending Radiology Last Impressions Cholangiopancreatography MRI 11/12/16 0000 Signed Impressions: Service Date/Time: Saturday, November 12, 2016 12:45 - CONCLUSION: Numerous gallstones with at least one filling defect in the distal common bile duct which is dilated to 11 mm. Bilateral lower lobe atelectasis. Bilateral breast augmentation. Cristo Fields MD Gall Bladder Ultrasound 11/11/16 0000 Signed Impressions: Service Date/Time: Friday, November 11, 2016 23:42 - CONCLUSION: 1. Multiple echogenic densities are seen within the gallbladder suggestive of stones and polyps. There is thickening of the gallbladder wall and there is a trace of fluid around the gallbladder. These findings can be demonstrated with either acute or chronic cholecystitis. Recommend correlation with patient's physical, clinical exam and laboratory values. 2. There is dilatation of the common bile duct at 10 mm. 3. 5 mm nonobstructing stone mid pole right kidney. 4. 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 Tre Brantley MD Cardiovascular: Regular Abdomen: Non-tender Extremities: Perfused Narrative Exam Patient recovered from ERCP No distress A/P Problem List: (1) Common bile duct (CBD) obstruction (2) Acute cholecystitis due to biliary calculus (3) Gallstones and inflammation of gallbladder with obstruction (4) Blood glucose elevated (5) Abdominal pain (6) Elevated LFTs (7) Abnormal findings on diagnostic imaging of liver and biliary tract (8) Abnormal findings on imaging of biliary tract (9) Right upper quadrant abdominal pain (10) S/P ERCP Assessment and Plan 81-year-old female status post ERCP to retrieve a stone in the common duct. Discussed with Dr. Woodson Transfer from [facility] Tentative surgery date Discussed in detail with the patient about lap cholecystectomy possible open Attending Statement NOTE FOR SURGICAL ATTENDING, DR. ARNAV THOMAS I attest that I had a [id number] encounter with the patient on the same day, and personally performed and documented my assessment and findings in the medical record. The following services were provided during this hospital visit: Chart data review, vital sign assessments/reviewing monitor data Review of consultations notes if present. Medication orders/review and/or management Ordering and/or reviewing lab tests Ordering and/or interpreting/reviewing x-rays and/or diagnostic studies Care of the patient and discussion of the patient with the care team Documentation time To help prompt me to consider important information that might be impacting today's encounter and assessment, information from prior notes written by myself or my colleagues may have been "brought forward/copy and pasted" into today's note. Problem Qualifiers (1) Gallstones and inflammation of gallbladder with obstruction: Qualified Code: K80.67 - Calculus of gallbladder and bile duct with acute on chronic cholecystitis, with obstruction (2) Abdominal pain: Qualified Code: R10.11 - Right upper quadrant abdominal pain Arnav Thomas MD Nov 13, 2016 11:11
[2016-11-13] MEDS: FAMOTIDINE 20 MG/2 ML VIAL IV PUSH SCH ×2 (12:26→22:04)
[2016-11-13] MEDS: SODIUM CHLORIDE 0.9% FLUSH 10 ML FLUSH SCH ×2 (12:27→22:03)
[2016-11-13] MEDS: DOCUSATE SODIUM 50 MG/SENNA 8.6 MG TAB PO SCH ×2 (12:28→21:00)
[2016-11-13] MEDS: ONDANSETRON HCL 4 MG/2 ML VIAL IV PRN ×2 (13:58→22:04)
[2016-11-13] MEDS: PROMETHAZINE HCL 25 MG SUPP RECTAL PRN (15:17)
[2016-11-13] MEDS ORDERED: LORazepam 2 MG/ML VIAL ONE (16:06)
[2016-11-13] MEDS ORDERED: LORazepam 2 MG/ML VIAL IV PUSH ONE (16:15)
--- NOTE | 2016-11-13 18:05 | EKG ---
Date Performed: 11/13/2016 Time Performed: 08:42:22 PTAGE: 81 years EKG: Sinus rhythm NONSPECIFIC ST & T-WAVE ABNORMALITY BORDERLINE ECG PREVIOUS TRACING : 04/23/2014 12.20 Compared to prior tracing no significant change DOCTOR: Judah Ceballos Interpretating Date/Time 11/13/2016 18:03:59
[2016-11-13] MEDS: SODIUM CHLOR 0.9% 1000 ML INJ 1,000 ML IV SCH ×2 (18:23→23:36)
[2016-11-14] VITALS (13 sets, daily range): BP systolic 86–166; BP diastolic 48–73; PULSE 76–151; RESP 14–36; TEMP 97.3–98.3; O2SAT 94–100
[2016-11-14] MEDS: INSULIN ASPART SUPPLEMENTAL SCALE SQ SCH ×4 (04:00→21:55)
[2016-11-14] MEDS: PIPERACIL-TAZO 3.375 GM PREMIX 50 ML IV SCH ×3 (05:10→18:51)
[2016-11-14] MEDS: ONDANSETRON HCL 4 MG/2 ML VIAL IV PRN (05:10)
[2016-11-14] MEDS: LEVOTHYROXINE SODIUM 150 MCG TAB PO SCH (05:10)
[2016-11-14 08:13] LABS: AUTOMATED NEUTROPHIL # 5.7 TH/MM3 (1.8-7.7); BASOPHIL % 0.1 % (0.0-2.0); HEMATOCRIT 30.4 % (35.0-46.0); HEMO FLAGS DIFF FINAL; LYMPH % 10.9 % (9.0-44.0); LYMPHOCYTE # 0.7 TH/MM3 (1.0-4.8); MEAN CELL VOLUME 86.7 FL (80.0-100.0); MEAN CORPUSCULAR HEMOGLOBIN 28.6 PG (27.0-34.0); MONO % 4.8 % (0.0-8.0); NEUT % 84.2 % (16.0-70.0); PLATELET COUNT 131 TH/MM3 (150-450); RED CELL DISTRIBUTION WIDTH 12.9 % (11.6-17.2); WHITE BLOOD COUNT 6.8 TH/MM3 (4.0-11.0)
[2016-11-14 08:31] LABS: ALT (GPT) 296 U/L (10-53); ANION GAP 19 MEQ/L (5-15); AST (GOT) 121 U/L (15-37); BICARBONATE 16.8 MEQ/L (21.0-32.0); BLOOD UREA NITROGEN 24 MG/DL (7-18); CHLORIDE 105 MEQ/L (98-107); GLOMERULAR FILTRATION RATE 49 ML/MIN (>89); MAGNESIUM 1.6 MG/DL (1.5-2.5); POTASSIUM 3.8 MEQ/L (3.5-5.1); SODIUM (NA) 141 MEQ/L (136-145)
[2016-11-14 08:34] LABS: ALKALINE PHOSPHATASE 269 U/L (45-117); TOTAL BILIRUBIN ADULT 0.8 MG/DL (0.2-1.0)
[2016-11-14] MEDS: DOCUSATE SODIUM 50 MG/SENNA 8.6 MG TAB PO SCH ×2 (09:35→21:30)
[2016-11-14] MEDS: FAMOTIDINE 20 MG/2 ML VIAL IV PUSH SCH (09:36)
[2016-11-14] MEDS: SODIUM CHLORIDE 0.9% FLUSH 10 ML FLUSH SCH ×2 (09:37→21:31)
--- NOTE | 2016-11-14 11:17 | HHI.GIFU ---
GI Follow-up Note Consult Follow-up Subjective: Patient laying in bed comfortably this am. had upper abd pain and n /v yesterday. mush better today Objective: PHYSICAL EXAMINATION: Vitals signs stable No fever CHEST: Chest is clear to auscultation and percussion. CARDIAC: Regular rate and rhythm with no murmur gallop or rubs. ABDOMEN: Soft, nondistended, minimal tender; no hepatosplenomegaly; bowel sounds are present in all four quadrants. EXTREMITIES: No clubbing, cyanosis, or edema. YARN CONDITIONER: alert and oriented times three. Available Data (labs, X- Rays, Procedues) : LFTs elevated but better ASSESSMENT/PLAN: 1. CBD stone-removed 2. Elevated LFT 3. N/V/abd pain-?pancreatitis ? GB dz. symptoms better now PLAN: 1. GB removal soon It was a pleasure seeing Chandni De Luna. Thank you for this consult. Entered by: Omero Manuel MD Nov 14, 2016 11:17
--- NOTE | 2016-11-14 14:09 | HHI.PR ---
Subjective Subjective Notes DAILY PROGRESS NOTE FOR SURGICAL ATTENDING, DR. MORRIS THOMAS Ambulating with PT She feels better Had an episode of atrial fibrillation cleared by cardiology for surgery tomorrow Objective Vitals/I&O Vital Signs Date Time Temp Pulse Resp B/P Pulse Ox O2 Delivery O2 Flow Rate FiO2 11/14/16 12:00 98.3 135 18 95/50 98 11/13/16 10:45 Room Air 11/13/16 10:15 3 Labs Laboratory Tests Test 11/14/16 07:31 White Blood Count 6.8 Red Blood Count 3.50 Hemoglobin 10.0 Hematocrit 30.4 Mean Corpuscular Volume 86.7 Mean Corpuscular Hemoglobin 28.6 Mean Corpuscular Hemoglobin 33.0 Concent Red Cell Distribution Width 12.9 Platelet Count 131 Mean Platelet Volume 10.2 Neutrophils (%) (Auto) 84.2 Lymphocytes (%) (Auto) 10.9 Monocytes (%) (Auto) 4.8 Eosinophils (%) (Auto) 0.0 Basophils (%) (Auto) 0.1 Neutrophils # (Auto) 5.7 Lymphocytes # (Auto) 0.7 Monocytes # (Auto) 0.3 Eosinophils # (Auto) 0.0 Basophils # (Auto) 0.0 CBC Comment DIFF FINAL Differential Comment Sodium Level 141 Potassium Level 3.8 Chloride Level 105 Carbon Dioxide Level 16.8 Anion Gap 19 Blood Urea Nitrogen 24 Creatinine 1.08 Estimat Glomerular Filtration 49 Rate Random Glucose 275 Calcium Level 8.3 Magnesium Level 1.6 Total Bilirubin 0.8 Aspartate Amino Transf 121 (AST/SGOT) Alanine Aminotransferase 296 (ALT/SGPT) Alkaline Phosphatase 269 Total Protein 5.7 Albumin 2.7 Lipase 169 Date/Time Procedure Status Source Growth 11/12/16 03:40 Aerobic Blood Culture - Preliminary Resulted Blood Peripheral NO GROWTH IN 2 DAYS 11/12/16 03:40 Anaerobic Blood Culture - Preliminary Resulted Blood Peripheral NO GROWTH IN 2 DAYS Radiology Last Impressions Cholangiopancreatography MRI 11/12/16 0000 Signed Impressions: Service Date/Time: Saturday, November 12, 2016 12:45 - CONCLUSION: Numerous gallstones with at least one filling defect in the distal common bile duct which is dilated to 11 mm. Bilateral lower lobe atelectasis. Bilateral breast augmentation. Cristo Fields MD Gall Bladder Ultrasound 11/11/16 0000 Signed Impressions: Service Date/Time: Friday, November 11, 2016 23:42 - CONCLUSION: 1. Multiple echogenic densities are seen within the gallbladder suggestive of stones and polyps. There is thickening of the gallbladder wall and there is a trace of fluid around the gallbladder. These findings can be demonstrated with either acute or chronic cholecystitis. Recommend correlation with patient's physical, clinical exam and laboratory values. 2. There is dilatation of the common bile duct at 10 mm. 3. 5 mm nonobstructing stone mid pole right kidney. 4. 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 Tre Brantley MD Cardiovascular: Regular Lungs: Clear Abdomen: Non-distended, Non-tender Extremities: No edema A/P Problem List: (1) Common bile duct (CBD) obstruction (2) Acute cholecystitis due to biliary calculus (3) Gallstones and inflammation of gallbladder with obstruction (4) Blood glucose elevated (5) Abdominal pain (6) Elevated LFTs (7) Abnormal findings on diagnostic imaging of liver and biliary tract (8) Abnormal findings on imaging of biliary tract (9) Right upper quadrant abdominal pain (10) S/P ERCP (11) Gallbladder & bile duct stone with obstruction (12) Hypothyroidism (13) Paroxysmal a-fib (14) Diabetes Assessment and Plan 81 year old female with acute cholecystitis; s/p ERCP with stone removal Cleared by cardiology -Plan for lap marilyn tomorrow afternoon with Dr. Thomas -Clear liquids; NPO after MN -Obtain consents -Okay to transfer to medical floor from GS standpoint Attending Statement NOTE FOR SURGICAL ATTENDING, DR. MORRIS THOMAS I agree with above assessment and plan. The exam, history, and the medical decision-making described in the above note were completed with the assistance of the mid-level provider. I reviewed and agree with the findings presented. Should seen Feels better Sinus rhythm Cardiology consultation reviewed Reviewed surgical technique Patient on board for laparoscopic cholecystectomy tomorrow I attest that I had a [id number] encounter with the patient on the same day, and personally performed and documented my assessment and findings in the medical record. The following services were provided during this hospital visit: Chart data review, vital sign assessments/reviewing monitor data Review of consultations notes if present. Medication orders/review and/or management Ordering and/or reviewing lab tests Ordering and/or interpreting/reviewing x-rays and/or diagnostic studies Care of the patient and discussion of the patient with the care team Documentation time To help prompt me to consider important information that might be impacting today's encounter and assessment, information from prior notes written by myself or my colleagues may have been "brought forward/copy and pasted" into today's note. Problem Qualifiers (1) Gallstones and inflammation of gallbladder with obstruction: Qualified Code: K80.67 - Calculus of gallbladder and bile duct with acute on chronic cholecystitis, with obstruction (2) Abdominal pain: Qualified Code: R10.11 - Right upper quadrant abdominal pain Nirali Patel Nov 14, 2016 14:09 Morris Thomas MD Nov 14, 2016 16:59
[2016-11-14] MEDS ORDERED: DILTIAZEM DRIP 125 MG in NS 125 ML PREMIX DELTONA ONLY IV SCH (14:45)
--- NOTE | 2016-11-14 14:46 | MB ---
cc: REAL LONGO DATE OF CONSULTATION: 11/14/2016 HISTORY OF PRESENT ILLNESS Ms. De Luna is an 81-year-old white female who presented with right upper quadrant pain. She was diagnosed with a common bile duct stone and underwent ERCP and stone extraction. Cholecystectomy is planned in the near future. She has a previous history of mild coronary artery disease by cardiac catheterization. She has no previous history of atrial fibrillation. She denies any angina or heart failure symptoms. She had an episode of atrial fibrillation which spontaneously converted to sinus rhythm. PAST MEDICAL HISTORY 1. Diabetes mellitus. 2. Hypothyroidism. 3. Nephrolithiasis. 4. Mild coronary artery disease as above. 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 MEDICATIONS 1. Humalog. 2. Levothyroxine. ALLERGIES None. SOCIAL HISTORY The patient does not smoke. She does not drink alcohol. FAMILY HISTORY Positive for heart disease in her father, REVIEW OF SYSTEMS Otherwise negative. PHYSICAL EXAMINATION VITAL SIGNS: Blood pressure 95/50, pulse 87 and regular. HEENT: Negative. 2+ carotid upstrokes. No bruits. LUNGS: Clear. HEART: Regular with no murmur, gallop or rub. ABDOMEN: Soft. No bruits. EXTREMITIES: Without edema. 2+ distal pulses. NEUROLOGIC: Grossly nonfocal. EKG EKG was reviewed and showed normal sinus rhythm, mild nonspecific ST-T changes. LABORATORY Hemoglobin 10.0. Potassium 3.8. Creatinine 1.08. AST 121, ALT 296. DIAGNOSIS 1. Paroxysmal atrial fibrillation. 2. Mild nonobstructive coronary artery disease. 3. Common bile duct obstruction. 4. Acute cholecystitis. 5. Status post ERCP. 6. Elevated liver function tests. 7. Diabetes mellitus. 8. Hypothyroidism. DISPOSITION Ms. De Luna had an episode of paroxysmal atrial fibrillation. She spontaneously converted to sinus rhythm. She has not had any evidence of angina or heart failure. If she goes back into atrial fibrillation and her rate is over 110 she can be started on IV diltiazem. Recommend to proceed with her cholecystectomy as planned. I will follow her for cardiology during hospitalization and also see her back for follow-up in our office after discharge. Will obtain the records from her previous narrow fabrics weaver, Dr. Guerrero. MD NATACHA Sanderson/MARIA DEL ROSARIO /2:11 PM /2:34 PM
--- NOTE | 2016-11-14 15:38 | PD.CONS ---
History of Present Illness Service Family medicine Consult Requested By Reason for Consult Medical management Cholecystitis 81-year-old woman presents complaining of right upper quadrant abdominal pain, rating to the back between her shoulder blades worsening over the past several days, and especially bad this afternoon. She's had a history of gallbladder problems in the past and known cholelithiasis. She was told she needed her gallbladder out about a year or so ago but improved. She was doing well until about a week or so ago she started having intermittent symptoms. This afternoon the symptoms got abruptly worse, more persistent, or so she with vomiting. The symptoms of what a little bit now. She otherwise had been feeling well. She had some chills. Ultrasound of the gallbladder perform at the [place] emergency department confirmed the wall thickening, gallbladder suggesting acute cholecystitis. Primary Care Physician Anastacio Gurrola DO Diagnoses: (1) Gallbladder & bile duct stone with obstruction (2) Sepsis (3) Right upper quadrant abdominal pain (4) Elevated LFTs (5) Blood glucose elevated Review of Systems Constitutional: COMPLAINS OF: Fatigue Respiratory: DENIES: Cough, Snoring, Sputum production, Shortness of breath Cardiovascular: DENIES: Chest pain, Palpitations, Lower Extremity Edema Gastrointestinal: COMPLAINS OF: Abdominal pain, Nausea, Vomiting, DENIES: Black stools, Bloody stools Psychiatric: DENIES: Anxiety, Confusion Past Family Social History Allergies: Coded Allergies: No Known Allergies (Unverified , 11/11/16) Past Medical History Diabetes Hypothyroidism History of kidney stones Past Surgical History left rotator cuff arthroplasty Lithotripsy Active Ordered Medications Current Medications Medications (Trade) Dose Ordered Sig/Herbert Route Start Time Stop Time Status Last Admin (NS Flush) 2 ml UNSCH PRN .XX 11/12/16 03:15 11/12/16 19:43 (NS Flush) 2 ml BID .XX 11/12/16 09:00 11/14/16 09:37 (Tylenol) 650 mg Q6H PRN PO 11/12/16 03:15 (Morphine Inj) 2 mg Q2H PRN IV PUSH 11/12/16 03:30 (Zofran Inj) 4 mg Q6H PRN IV 11/12/16 03:15 11/14/16 05:10 (Ambien) 5 mg HS PRN PO 11/12/16 03:15 (Heparin Inj) 5,000 units Q12H SQ 11/12/16 06:00 Hold 11/13/16 04:44 Miscellaneous Information 1 Q361D XX 11/12/16 03:15 11/12/16 03:15 (Chlorhexidine 2% Cloth) 3 pack Taper DAILY@04 TOP 11/12/16 04:00 11/08/17 03:59 11/13/16 23:37 (Chlorhexidine 2% Cloth) 3 pack UNSCH PRN TOP 11/12/16 03:15 (Adele-Colace) 1 tab BID PO 11/12/16 09:00 11/14/16 09:35 (Milk Of Magnesia Liq) 30 ml Q12H PRN PO 11/12/16 03:15 (Senokot) 17.2 mg Q12H PRN PO 11/12/16 03:15 (Dulcolax Supp) 10 mg DAILY PRN RECTAL 11/12/16 03:15 Lactulose 30 ml 30 ml DAILY PRN PO 11/12/16 03:15 (Zosyn 3.375 Gm Premix) 50 ml @ 100 mls/hr Q6H IV 11/12/16 06:00 11/14/16 05:10 (Synthroid) 150 mcg DAILY@0600 PO 11/12/16 09:00 11/14/16 05:10 (NovoLOG SUPPLEMENTAL SCALE) 1 Q4HR SQ 11/13/16 12:00 11/14/16 12:00 Promethazine HCl 25 mg 25 mg Q6H PRN RECTAL 11/13/16 14:45 11/13/16 15:17 Sodium Chloride 1,000 ml @ 150 mls/hr Q6H40M IV 11/13/16 18:30 11/13/16 23:36 (Cardizem Drip Inj Premix) 125 ml @ 0 mls/hr TITRATE IV 11/14/16 14:45 (Pepcid Inj) 10 mg Q12HR IV PUSH 11/15/16 09:00 Social History Denies smoking or ETOH use Lives alone Retired Physical Exam Vital Signs Vital Signs Date Time Temp Pulse Resp B/P Pulse Ox O2 Delivery O2 Flow Rate FiO2 11/14/16 12:00 98.3 135 18 95/50 98 11/14/16 10:00 78 11/14/16 08:00 80 11/14/16 08:00 97.3 88 14 106/60 98 11/14/16 06:00 78 11/14/16 04:53 76 11/14/16 04:00 98.0 76 36 86/48 94 11/14/16 02:00 82 11/14/16 00:00 85 11/14/16 00:00 98.0 85 17 166/73 95 11/13/16 22:00 80 11/13/16 20:00 80 11/13/16 20:00 98.4 80 12 184/77 96 11/13/16 18:00 80 11/13/16 16:00 97.4 77 18 161/70 96 11/13/16 16:00 77 Physical Exam GENERAL: Well-nourished, well-developed patient. SKIN: Warm and dry. HEAD: Normocephalic. EYES: No scleral icterus. No injection or drainage. NECK: Supple, trachea midline. No JVD or lymphadenopathy. CARDIOVASCULAR: Regular rate and rhythm without murmurs, gallops, or rubs. RESPIRATORY: Breath sounds equal bilaterally. No accessory muscle use. GASTROINTESTINAL: Abdomen soft, mild tenderness in right upper quadrant, nondistended. MUSCULOSKELETAL: No cyanosis, or edema. BACK: Nontender without obvious deformity. No CVA tenderness. EXTREMITIES: No clubbing cyanosis or edema Laboratory Laboratory Tests Test 11/14/16 07:31 White Blood Count 6.8 Red Blood Count 3.50 Hemoglobin 10.0 Hematocrit 30.4 Mean Corpuscular Volume 86.7 Mean Corpuscular Hemoglobin 28.6 Mean Corpuscular Hemoglobin 33.0 Concent Red Cell Distribution Width 12.9 Platelet Count 131 Mean Platelet Volume 10.2 Neutrophils (%) (Auto) 84.2 Lymphocytes (%) (Auto) 10.9 Monocytes (%) (Auto) 4.8 Eosinophils (%) (Auto) 0.0 Basophils (%) (Auto) 0.1 Neutrophils # (Auto) 5.7 Lymphocytes # (Auto) 0.7 Monocytes # (Auto) 0.3 Eosinophils # (Auto) 0.0 Basophils # (Auto) 0.0 CBC Comment DIFF FINAL Differential Comment Sodium Level 141 Potassium Level 3.8 Chloride Level 105 Carbon Dioxide Level 16.8 Anion Gap 19 Blood Urea Nitrogen 24 Creatinine 1.08 Estimat Glomerular Filtration 49 Rate Random Glucose 275 Calcium Level 8.3 Magnesium Level 1.6 Total Bilirubin 0.8 Aspartate Amino Transf 121 (AST/SGOT) Alanine Aminotransferase 296 (ALT/SGPT) Alkaline Phosphatase 269 Total Protein 5.7 Albumin 2.7 Lipase 169 Date/Time Procedure Status Source Growth 11/12/16 03:40 Aerobic Blood Culture - Preliminary Resulted Blood Peripheral NO GROWTH IN 2 DAYS 11/12/16 03:40 Anaerobic Blood Culture - Preliminary Resulted Blood Peripheral NO GROWTH IN 2 DAYS Result Diagram: 11/14/16 0731 11/14/16 0731 Imaging Last 72 hours Impressions GI Procedure 11/13/16 0000 Signed Impressions: Service Date/Time: Sunday, November 13, 2016 08:58 - CONCLUSION: ERCP as above. Cristo Fields MD Cholangiopancreatography MRI 11/12/16 0000 Signed Impressions: Service Date/Time: Saturday, November 12, 2016 12:45 - CONCLUSION: Numerous gallstones with at least one filling defect in the distal common bile duct which is dilated to 11 mm. Bilateral lower lobe atelectasis. Bilateral breast augmentation. Cristo Fields MD Assessment and Plan Problem List: (1) Acute cholecystitis due to biliary calculus Status: Acute Plan: GI managing. ERCP done with stone retrieval and cholecystectomy planned for tomorrow Elevated LFTS On Zosyn empirically Morphine as needed for pain (2) Hypothyroidism Status: Acute Plan: On replacement. TSH levels ordered for AM (3) Diabetes Status: Acute Plan: BS elevated. On SS. Patient is on clear liquid only and planned surgery tomorrow (4) Paroxysmal a-fib Status: Acute Plan: Called with HR in the 130's. Dr Nava consulted and patient has already converted to SR. Will monitor Assessment and Plan Assessment and plan discussed with Dr. Gurrola Discussed Condition With Nursing Discharge Planning To be assessed Physician Attestation I and the SILK BLOCKER have both examined this patient and reviewed this note and I agree with these findings and plan of care. Charlotte Giordano [facility] Nov 14, 2016 15:38
[2016-11-14] MEDS ORDERED: DILTIAZEM 125 MG/NS 100 ML IV SCH ×2 (16:15)
[2016-11-14] MEDS: SODIUM CHLOR 0.9% 1000 ML INJ 1,000 ML IV SCH (21:30)
[2016-11-15] VITALS: BP_SYST 82; BP_SYST 90; BP_DIAS 42; BP_DIAS 52; PULSE 72; RESP 18; TEMP 98; O2SAT 94
[2016-11-15] MEDS: PIPERACIL-TAZO 3.375 GM PREMIX 50 ML IV SCH ×5 (00:28→23:50)
[2016-11-15] MEDS: INSULIN ASPART SUPPLEMENTAL SCALE SQ SCH ×6 (00:37→20:52)
[2016-11-15] MEDS: SODIUM CHLOR 0.9% 1000 ML INJ 1,000 ML IV SCH ×4 (03:50→23:50)
[2016-11-15 04:00] VITALS: BP 90/56; PULSE 73; RESP 18; TEMP 98.1; O2SAT 96
[2016-11-15] MEDS: CHLORHEXIDINE GLUCONATE 2 % 1 PACK (2 CLOTHS) TOP SCH (04:00)
[2016-11-15 06:13] LABS: AUTOMATED NEUTROPHIL # 5.7 TH/MM3 (1.8-7.7); BASOPHIL % 0.2 % (0.0-2.0); EOSINOPHIL % 0.5 % (0.0-4.0); HEMATOCRIT 27.9 % (35.0-46.0); HEMO FLAGS DIFF FINAL; LYMPHOCYTE # 1.4 TH/MM3 (1.0-4.8); MEAN CELL VOLUME 85.8 FL (80.0-100.0); MEAN CORPUSCULAR HEMOGLOBIN 28.5 PG (27.0-34.0); MEAN CORPUSCULAR HGB CONC 33.2 % (32.0-36.0); NEUT % 70.3 % (16.0-70.0); PLATELET COUNT 147 TH/MM3 (150-450); RED BLOOD COUNT 3.25 MIL/MM3 (4.00-5.30); RED CELL DISTRIBUTION WIDTH 13.1 % (11.6-17.2); WHITE BLOOD COUNT 8.1 TH/MM3 (4.0-11.0)
[2016-11-15] MEDS: LEVOTHYROXINE SODIUM 150 MCG TAB PO SCH (06:19)
[2016-11-15 07:08] LABS: ANION GAP 11 MEQ/L (5-15); BICARBONATE 22.9 MEQ/L (21.0-32.0); BLOOD UREA NITROGEN 36 MG/DL (7-18); CHLORIDE 111 MEQ/L (98-107); GLOMERULAR FILTRATION RATE 40 ML/MIN (>89); MAGNESIUM 1.9 MG/DL (1.5-2.5); SODIUM (NA) 145 MEQ/L (136-145)
[2016-11-15 07:27] LABS: POTASSIUM 2.9 MEQ/L (3.5-5.1)
[2016-11-15 08:00] VITALS: BP 113/56; PULSE 75; PULSE 77; RESP 18; TEMP 98; O2SAT 94
--- NOTE | 2016-11-15 08:06 | PD.CARD.PN ---
Subjective Subjective Remarks No CP or SOB, in SR Objective Medications Current Medications Medications (Trade) Dose Ordered Sig/Herbert Route Start Time Stop Time Status Last Admin (NS Flush) 2 ml UNSCH PRN .XX 11/12/16 03:15 11/12/16 19:43 (NS Flush) 2 ml BID .XX 11/12/16 09:00 11/14/16 21:31 (Tylenol) 650 mg Q6H PRN PO 11/12/16 03:15 (Morphine Inj) 2 mg Q2H PRN IV PUSH 11/12/16 03:30 (Zofran Inj) 4 mg Q6H PRN IV 11/12/16 03:15 11/14/16 05:10 (Ambien) 5 mg HS PRN PO 11/12/16 03:15 (Heparin Inj) 5,000 units Q12H SQ 11/12/16 06:00 Hold 11/13/16 04:44 Miscellaneous Information 1 Q361D XX 11/12/16 03:15 11/12/16 03:15 (Chlorhexidine 2% Cloth) 3 pack Taper DAILY@04 TOP 11/12/16 04:00 11/08/17 03:59 11/15/16 04:00 (Chlorhexidine 2% Cloth) 3 pack UNSCH PRN TOP 11/12/16 03:15 (Adele-Colace) 1 tab BID PO 11/12/16 09:00 11/14/16 21:30 (Milk Of Magnesia Liq) 30 ml Q12H PRN PO 11/12/16 03:15 (Senokot) 17.2 mg Q12H PRN PO 11/12/16 03:15 (Dulcolax Supp) 10 mg DAILY PRN RECTAL 11/12/16 03:15 Lactulose 30 ml 30 ml DAILY PRN PO 11/12/16 03:15 (Zosyn 3.375 Gm Premix) 50 ml @ 100 mls/hr Q6H IV 11/12/16 06:00 11/15/16 06:19 (Synthroid) 150 mcg DAILY@0600 PO 11/12/16 09:00 11/15/16 06:19 (NovoLOG SUPPLEMENTAL SCALE) 1 Q4HR SQ 11/13/16 12:00 11/15/16 00:37 Promethazine HCl 25 mg 25 mg Q6H PRN RECTAL 11/13/16 14:45 11/13/16 15:17 (NS 1000 ml Inj) 1,000 ml @ 150 mls/hr Q6H40M IV 11/13/16 18:30 11/14/16 21:30 Famotidine 10 mg 10 mg Q12HR IV PUSH 11/15/16 09:00 (Cardizem Inj/NS Inj) 125 ml @ 0 mls/hr TITRATE IV 11/14/16 16:15 Vital Signs / I&O Vital Signs Date Time Temp Pulse Resp B/P Pulse Ox O2 Delivery O2 Flow Rate FiO2 11/15/16 04:00 98.1 73 18 90/56 96 11/15/16 04:00 Room Air 11/15/16 00:00 Room Air 11/15/16 00:00 98.0 72 18 82/42 94 90/52 11/14/16 20:17 81 11/14/16 20:00 98.2 80 19 108/55 97 11/14/16 20:00 Room Air 11/14/16 16:00 97.7 83 18 102/56 100 11/14/16 12:27 127 11/14/16 12:05 151 11/14/16 12:00 98.3 135 18 95/50 98 11/14/16 10:00 78 I/O 11/14/16 11/14/16 11/14/16 11/15/16 11/15/16 11/15/16 07:00 15:00 23:00 07:00 15:00 23:00 Intake Total 492 ml 1657 ml 1197 ml Output Total 450 ml 550 ml 100 ml Balance 42 ml 1107 ml 1097 ml Intake Oral 360 ml 0 ml IV Total 492 ml 1297 ml 1197 ml Output Urine Total 450 ml 550 ml 100 ml # Bowel Movements 1 0 Physical Exam GENERAL: In NAD SKIN: Warm and dry. HEAD: Normocephalic. EYES: No scleral icterus. No injection or drainage. NECK: Supple, trachea midline. No JVD or lymphadenopathy. CARDIOVASCULAR: Regular rate and rhythm without murmurs, gallops, or rubs. RESPIRATORY: Breath sounds equal bilaterally. No accessory muscle use. GASTROINTESTINAL: Abdomen soft, nondistended. MUSCULOSKELETAL: No cyanosis, or edema. . Laboratory Laboratory Tests Test 11/15/16 05:08 White Blood Count 8.1 TH/MM3 Red Blood Count 3.25 MIL/MM3 Hemoglobin 9.3 GM/DL Hematocrit 27.9 % Mean Corpuscular Volume 85.8 FL Mean Corpuscular Hemoglobin 28.5 PG Mean Corpuscular Hemoglobin 33.2 % Concent Red Cell Distribution Width 13.1 % Platelet Count 147 TH/MM3 Mean Platelet Volume 10.1 FL Neutrophils (%) (Auto) 70.3 % Lymphocytes (%) (Auto) 18.0 % Monocytes (%) (Auto) 11.0 % Eosinophils (%) (Auto) 0.5 % Basophils (%) (Auto) 0.2 % Neutrophils # (Auto) 5.7 TH/MM3 Lymphocytes # (Auto) 1.4 TH/MM3 Monocytes # (Auto) 0.9 TH/MM3 Eosinophils # (Auto) 0.0 TH/MM3 Basophils # (Auto) 0.0 TH/MM3 CBC Comment DIFF FINAL Differential Comment Sodium Level 145 MEQ/L Potassium Level 2.9 MEQ/L Chloride Level 111 MEQ/L Carbon Dioxide Level 22.9 MEQ/L Anion Gap 11 MEQ/L Blood Urea Nitrogen 36 MG/DL Creatinine 1.29 MG/DL Estimat Glomerular Filtration 40 ML/MIN Rate Random Glucose 150 MG/DL Calcium Level 8.1 MG/DL Magnesium Level 1.9 MG/DL Thyroid Stimulating Hormone 0.159 uIU/ML 3rd Gen Imaging Last Impressions GI Procedure 11/13/16 0000 Signed Impressions: Service Date/Time: Sunday, November 13, 2016 08:58 - CONCLUSION: ERCP as above. Cristo Fields MD Cholangiopancreatography MRI 11/12/16 0000 Signed Impressions: Service Date/Time: Saturday, November 12, 2016 12:45 - CONCLUSION: Numerous gallstones with at least one filling defect in the distal common bile duct which is dilated to 11 mm. Bilateral lower lobe atelectasis. Bilateral breast augmentation. Cristo Fields MD Gall Bladder Ultrasound 11/11/16 0000 Signed Impressions: Service Date/Time: Friday, November 11, 2016 23:42 - CONCLUSION: 1. Multiple echogenic densities are seen within the gallbladder suggestive of stones and polyps. There is thickening of the gallbladder wall and there is a trace of fluid around the gallbladder. These findings can be demonstrated with either acute or chronic cholecystitis. Recommend correlation with patient's physical, clinical exam and laboratory values. 2. There is dilatation of the common bile duct at 10 mm. 3. 5 mm nonobstructing stone mid pole right kidney. 4. 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 Tre Brantley MD Assessment and Plan Problem List: (1) Paroxysmal a-fib (2) CAD (coronary artery disease) (3) Diabetes (4) Hypothyroidism (5) Gallbladder & bile duct stone with obstruction (6) Acute cholecystitis due to biliary calculus Assessment and Plan In SR this AM. No angina or CHF. Proceed with surgery as planned. Continue monitoring on tele. Michael Nava MD Nov 15, 2016 08:06
[2016-11-15] MEDS: FAMOTIDINE 20 MG/2 ML VIAL IV PUSH SCH ×2 (09:00→20:00)
[2016-11-15] MEDS: DOCUSATE SODIUM 50 MG/SENNA 8.6 MG TAB PO SCH ×2 (09:00→20:43)
[2016-11-15] MEDS: SODIUM CHLORIDE 0.9% FLUSH 10 ML FLUSH SCH ×2 (09:00→20:44)
[2016-11-15] MEDS: POTASSIUM CHLOR 20 MEQ PREMIX 100 ML IV SCH ×2 (09:20→12:00)
--- NOTE | 2016-11-15 09:39 | HHI.GIFU ---
GI Follow-up Note Consult Follow-up Subjective: Patient laying in bed comfortably-no significant abd pain, no n/v Objective: PHYSICAL EXAMINATION: Vitals signs stable No fever CHEST: Chest is clear to auscultation and percussion. CARDIAC: Regular rate and rhythm with no murmur gallop or rubs. ABDOMEN: Soft, nondistended, nontender; no hepatosplenomegaly; bowel sounds are present in all four quadrants. SKIN: Normal; no rash; no jaundice. [employer] MEMBER: alert and oriented times three. Available Data (labs, X- Rays, Procedues) : LFT were trending downwards ASSESSMENT/PLAN: 1. CBD stone-removed. for GB operation today 2. Elevated LFT-improved 3. N/V/abd pain-?pancreatitis ? GB dz. symptoms better now PLAN: 1. GB removal today 2. when D/C'd f/u with Dr. Woodson to make sure LFT's return to normal It was a pleasure seeing Chandni De Luna. Thank you for this consult. Entered by: Omero Manuel MD Nov 15, 2016 09:39
--- NOTE | 2016-11-15 09:41 | HHI.PR ---
Subjective Remarks Patient alert and oriented. Denies any CP or SOB. Plan for cholecystectomy today Objective Vital Signs Date Time Temp Pulse Resp B/P Pulse Ox O2 Delivery O2 Flow Rate FiO2 11/15/16 08:00 98.0 75 18 113/56 94 11/15/16 04:00 98.1 73 18 90/56 96 11/15/16 04:00 Room Air 11/15/16 00:00 Room Air 11/15/16 00:00 98.0 72 18 82/42 94 90/52 11/14/16 20:17 81 11/14/16 20:00 98.2 80 19 108/55 97 11/14/16 20:00 Room Air 11/14/16 16:00 97.7 83 18 102/56 100 11/14/16 12:27 127 11/14/16 12:05 151 11/14/16 12:00 98.3 135 18 95/50 98 11/14/16 10:00 78 I/O 11/14/16 11/14/16 11/14/16 11/15/16 11/15/16 11/15/16 07:00 15:00 23:00 07:00 15:00 23:00 Intake Total 492 ml 1657 ml 1197 ml Output Total 450 ml 550 ml 100 ml Balance 42 ml 1107 ml 1097 ml Intake Oral 360 ml 0 ml IV Total 492 ml 1297 ml 1197 ml Output Urine Total 450 ml 550 ml 100 ml # Bowel Movements 1 0 Result Diagram: 11/15/16 0508 11/15/16 0508 Imaging Last 72 hours Impressions GI Procedure 11/13/16 0000 Signed Impressions: Service Date/Time: Sunday, November 13, 2016 08:58 - CONCLUSION: ERCP as above. Cristo Fields MD Procedures ERCP on the Objective Remarks GENERAL: Alert and cooperative SKIN: Warm and dry. HEAD: Normocephalic. EYES: No scleral icterus. No injection or drainage. NECK: Supple, trachea midline. No JVD or lymphadenopathy. CARDIOVASCULAR: Regular rate and rhythm without murmurs, gallops, or rubs. RESPIRATORY: Breath sounds equal bilaterally. No accessory muscle use. GASTROINTESTINAL: Abdomen soft, non-tender, nondistended. MUSCULOSKELETAL: No cyanosis, or edema. BACK: Nontender without obvious deformity. No CVA tenderness. Medications and IVs Current Medications Medications (Trade) Dose Ordered Sig/Herbert Route Start Time Stop Time Status Last Admin (NS Flush) 2 ml UNSCH PRN .XX 11/12/16 03:15 11/12/16 19:43 (NS Flush) 2 ml BID .XX 11/12/16 09:00 11/14/16 21:31 (Tylenol) 650 mg Q6H PRN PO 11/12/16 03:15 (Morphine Inj) 2 mg Q2H PRN IV PUSH 11/12/16 03:30 (Zofran Inj) 4 mg Q6H PRN IV 11/12/16 03:15 11/14/16 05:10 (Ambien) 5 mg HS PRN PO 11/12/16 03:15 (Heparin Inj) 5,000 units Q12H SQ 11/12/16 06:00 Hold 11/13/16 04:44 Miscellaneous Information 1 Q361D XX 11/12/16 03:15 11/12/16 03:15 (Chlorhexidine 2% Cloth) 3 pack Taper DAILY@04 TOP 11/12/16 04:00 11/08/17 03:59 11/15/16 04:00 (Chlorhexidine 2% Cloth) 3 pack UNSCH PRN TOP 11/12/16 03:15 (Adele-Colace) 1 tab BID PO 11/12/16 09:00 11/14/16 21:30 (Milk Of Magnesia Liq) 30 ml Q12H PRN PO 11/12/16 03:15 (Senokot) 17.2 mg Q12H PRN PO 11/12/16 03:15 (Dulcolax Supp) 10 mg DAILY PRN RECTAL 11/12/16 03:15 Lactulose 30 ml 30 ml DAILY PRN PO 11/12/16 03:15 (Zosyn 3.375 Gm Premix) 50 ml @ 100 mls/hr Q6H IV 11/12/16 06:00 11/15/16 06:19 (Synthroid) 150 mcg DAILY@0600 PO 11/12/16 09:00 11/15/16 06:19 (NovoLOG SUPPLEMENTAL SCALE) 1 Q4HR SQ 11/13/16 12:00 11/15/16 00:37 Promethazine HCl 25 mg 25 mg Q6H PRN RECTAL 11/13/16 14:45 11/13/16 15:17 (NS 1000 ml Inj) 1,000 ml @ 150 mls/hr Q6H40M IV 11/13/16 18:30 11/14/16 21:30 Famotidine 10 mg 10 mg Q12HR IV PUSH 11/15/16 09:00 Diltiazem HCl 125 mg/Sodium Chloride 125 ml @ 0 mls/hr TITRATE IV 11/14/16 16:15 (KCl 20 Meq Premix Inj) 100 ml @ 50 mls/hr Q2H IV 11/15/16 10:00 11/15/16 13:59 Assessment and Plan Problem List: (1) Acute cholecystitis due to biliary calculus Status: Acute Plan: GI managing. ERCP done with stone retrieval and cholecystectomy planned for today Elevated LFTS On Zosyn empirically Morphine as needed for pain (2) Hypothyroidism Status: Acute Plan: On replacement. TSH levels at 0.159 will decrease replacement with afib episode yesterday (3) Diabetes Status: Acute Plan: BS elevated. On SS. Planned surgery today will start home insulin regimen after surgery (4) Paroxysmal a-fib Status: Acute Plan: NSR at rate of 80. No more periods of PAFIB noted. Dr Nava consulted. Will monitor (5) Hypokalemia Status: Acute Plan: Potassium at 2.9 replacement ordered IV Assessment and Plan Assessment and plan discussed with Dr. Gurrola Discussed Condition With Nursing Discharge Planning Home with [facility] Physician Attestation I and the PLASMA PROCESSING TECHNICIAN have both examined the patient and reviewed this note and I agree with findings and plan of care. Charlotte GiordanoP Nov 15, 2016 09:41
[2016-11-15 12:00] VITALS: BP 152/76; PULSE 80; RESP 18; TEMP 98.1; O2SAT 91
[2016-11-15] MEDS ORDERED: CHLORHEXIDINE GLUCONATE 2 % 1 PACK (2 CLOTHS) TOPICAL PRN (14:15)
[2016-11-15] MEDS ORDERED: METOPROLOL TARTRATE 25 MG TAB PO PRN (14:15)
[2016-11-15] MEDS ORDERED: POVIDONE IODINE 5% (ANTISEPSIS KIT) 4 APPLICATIONS EACH NARE PRN (14:15)
[2016-11-15] MEDS ORDERED: SODIUM CHLORID 0.9% 500 ML IV PRN (14:15)
[2016-11-15] MEDS ORDERED: LACTATED RINGER'S 1000 ML IV PRN (14:15)
[2016-11-15] MEDS ORDERED: INSULIN HUMAN REGULAR 1,000 UNITS/10 ML VIAL SQ PRN (14:15)
[2016-11-15] MEDS ORDERED: PROPOFOL 200 MG/20 ML AMP IV ONE (14:29)
[2016-11-15] MEDS ORDERED: ONDANSETRON HCL 4 MG/2 ML VIAL IV PUSH ONE (14:29)
[2016-11-15] MEDS ORDERED: NEOSTIGMINE 3 MG/3 ML SYR IV ONE (14:29)
[2016-11-15] MEDS ORDERED: LACTATED RINGER'S 1000 ML INJ 1,000 ML IV ONE (14:29)
[2016-11-15] MEDS ORDERED: BUPIVACAINE/EPINEPHRINE 0.25% 50 ML VIAL ONE (14:55)
[2016-11-15] MEDS ORDERED: BUPIVACAINE/EPINEPHRINE 0.25% PF 30 ML VIAL INFIL ONE (15:37)
[2016-11-15] MEDS ORDERED: DO NOT ADM ANY ANTICOAGULANT DRUGS PRN (16:57)
[2016-11-15] MEDS ORDERED: fentaNYL CITRATE 250 MCG/5 ML AMP ONE (17:17)
[2016-11-15] MEDS ORDERED: *ONDANSETRON 4 MG VIAL PERIprocedural Use ONLY ONE (17:41)
[2016-11-15] MEDS ORDERED: *RESP: ALBUTEROL 2.5 MG/3 ML NEB (PRN) PERIprocedural Use ONLY NEB ONE (17:53)
[2016-11-15 18:25] LABS: HEMOGLOBIN A1a 1.2 %; HEMOGLOBIN A1b 0.9 %; HEMOGLOBIN Ao 80.1 %; HEMOGLOBIN F 1.3 %; HEMOGLOBIN LA1C 2.5 %; HEMOGLOBIN P3 5.4 %
[2016-11-15] MEDS: ONDANSETRON HCL 4 MG/2 ML VIAL IV PRN (18:55)
[2016-11-15 20:00] VITALS: BP 107/50; PULSE 86; RESP 18; TEMP 98.1; O2SAT 98
[2016-11-15] MEDS: MORPHINE SULFATE 8 MG/ML INJ IV PUSH PRN ×2 (20:01→23:50)
[2016-11-15 20:18] VITALS: PULSE 86
[2016-11-15] MEDS: PROMETHAZINE HCL 25 MG SUPP RECTAL PRN (20:37)
[2016-11-16] VITALS (7 sets, daily range): BP systolic 114–166; BP diastolic 58–77; PULSE 79–98; RESP 17–18; TEMP 97.4–98.7; O2SAT 93–96
[2016-11-16] MEDS: INSULIN ASPART SUPPLEMENTAL SCALE SQ SCH ×6 (00:01→20:58)
[2016-11-16] MEDS: ONDANSETRON HCL 4 MG/2 ML VIAL IV PRN ×2 (00:03→05:23)
[2016-11-16] MEDS: CHLORHEXIDINE GLUCONATE 2 % 1 PACK (2 CLOTHS) TOP SCH (03:19)
[2016-11-16] MEDS: SODIUM CHLOR 0.9% 1000 ML INJ 1,000 ML IV SCH (03:19)
[2016-11-16] MEDS: LEVOTHYROXINE SODIUM 125 MCG TAB PO SCH (05:11)
[2016-11-16] MEDS: MORPHINE SULFATE 8 MG/ML INJ IV PUSH PRN (05:12)
[2016-11-16] MEDS: PIPERACIL-TAZO 3.375 GM PREMIX 50 ML IV SCH ×2 (05:12→12:36)
--- NOTE | 2016-11-16 08:39 | HHI.PR ---
Subjective Remarks Patient alert and oriented. Denies any CP or SOB. Plan for cholecystectomy today Objective Vital Signs Date Time Temp Pulse Resp B/P Pulse Ox O2 Delivery O2 Flow Rate FiO2 11/16/16 04:00 97.4 85 18 123/62 96 11/16/16 04:00 Nasal Cannula 2.00 11/16/16 00:00 Nasal Cannula 2.00 11/16/16 00:00 97.7 98 18 166/77 95 11/15/16 20:18 86 11/15/16 20:00 98.1 86 18 107/50 98 11/15/16 20:00 Nasal Cannula 2.00 11/15/16 18:00 97.5 90 19 104/51 96 Nasal Cannula 2 11/15/16 17:45 90 19 97/51 95 Nasal Cannula 2 11/15/16 17:30 93 16 101/47 93 Nasal Cannula 2 11/15/16 17:15 97 15 120/53 97 Nasal Cannula 2 11/15/16 17:00 81 22 114/55 92 Nasal Cannula 5 11/15/16 16:57 97.6 82 12 118/55 94 Nasal Cannula 5 11/15/16 12:00 98.1 80 18 152/76 91 I/O 11/15/16 11/15/16 11/15/16 11/16/16 11/16/16 11/16/16 07:00 15:00 23:00 07:00 15:00 23:00 Intake Total 1197 ml 619 ml 2387 ml 997 ml Output Total 100 ml 525 ml 450 ml Balance 1097 ml 619 ml 1862 ml 547 ml Intake Oral 0 ml 0 ml 0 ml IV Total 1197 ml 619 ml 1387 ml 997 ml Other 1000 ml Output Urine Total 100 ml 475 ml 450 ml Estimated Blood Loss 50 ml # Bowel Movements 1 Result Diagram: 11/15/16 0508 11/15/16 1853 Procedures ERCP on the Objective Remarks GENERAL: Alert and cooperative SKIN: Warm and dry. HEAD: Normocephalic. EYES: No scleral icterus. No injection or drainage. NECK: Supple, trachea midline. No JVD or lymphadenopathy. CARDIOVASCULAR: Regular rate and rhythm without murmurs, gallops, or rubs. RESPIRATORY: Breath sounds equal bilaterally. No accessory muscle use. GASTROINTESTINAL: Abdomen soft, non-tender, nondistended. MUSCULOSKELETAL: No cyanosis, or edema. BACK: Nontender without obvious deformity. No CVA tenderness. Assessment and Plan Problem List: (1) Acute cholecystitis due to biliary calculus Status: Acute Plan: GI managing. ERCP done with stone retrieval and cholecystectomy planned for today Elevated LFTS On Zosyn empirically Morphine as needed for pain (2) Hypothyroidism Status: Acute Plan: On replacement. TSH levels at 0.159 will decrease replacement with afib episode yesterday (3) Diabetes Status: Acute Plan: BS elevated range overnight 202-314. Home dosing of insulin resumed. Diet changed to diabetic diet. (4) Paroxysmal a-fib Status: Acute Plan: NSR at rate of 80. No more periods of PAFIB noted. Dr Nava consulted and managing. Will monitor (5) Hypokalemia Status: Acute Plan: Potassium at 3.9 today. labs pending this AM Assessment and Plan Assessment and plan discussed with Dr. Gurrola Discussed Condition With Nursing Discharge Planning Home and [facility] Physician Attestation I and the BUSINESS PROJECT ANALYST have both examined this patient and reviewed this note and I agree with these findings and plan of care. Charlotte Giordano. BUSINESS PROJECT ANALYST Nov 16, 2016 08:39
[2016-11-16] MEDS: DOCUSATE SODIUM 50 MG/SENNA 8.6 MG TAB PO SCH ×2 (09:00→20:35)
[2016-11-16] MEDS: SODIUM CHLORIDE 0.9% FLUSH 10 ML FLUSH SCH ×2 (09:12→20:36)
[2016-11-16] MEDS: FAMOTIDINE 20 MG/2 ML VIAL IV PUSH SCH (09:13)
[2016-11-16 10:04] LABS: AUTOMATED NEUTROPHIL # 8.2 TH/MM3 (1.8-7.7); BASOPHIL % 0.2 % (0.0-2.0); HEMATOCRIT 27.6 % (35.0-46.0); HEMO FLAGS DIFF FINAL; LYMPH % 6.6 % (9.0-44.0); LYMPHOCYTE # 0.6 TH/MM3 (1.0-4.8); MEAN CORPUSCULAR HEMOGLOBIN 29.2 PG (27.0-34.0); MONO % 6.3 % (0.0-8.0); NEUT % 86.9 % (16.0-70.0); PLATELET COUNT 138 TH/MM3 (150-450); RED CELL DISTRIBUTION WIDTH 13.6 % (11.6-17.2); WHITE BLOOD COUNT 9.4 TH/MM3 (4.0-11.0)
[2016-11-16 10:22] LABS: BICARBONATE 21.3 MEQ/L (21.0-32.0); POTASSIUM 3.5 MEQ/L (3.5-5.1)
[2016-11-16] MEDS ORDERED: NON-FORMULARY DRUG (Insulin Lispro (Human) Inj (Humalog Inj) 0 UNITS) SQ SCH (11:00)
[2016-11-16] MEDS: INSULIN DETEMIR 100 UNITS/ML VIAL SQ SCH (12:28)
--- NOTE | 2016-11-16 13:18 | PD.CARD.PN ---
Subjective Subjective Remarks No CP or SOB, tolerated surgery well, c/o N/V Objective Medications Current Medications Medications (Trade) Dose Ordered Sig/Herbert Route Start Time Stop Time Status Last Admin (NS Flush) 2 ml UNSCH PRN .XX 11/12/16 03:15 11/12/16 19:43 (NS Flush) 2 ml BID .XX 11/12/16 09:00 11/16/16 09:12 (Tylenol) 650 mg Q6H PRN PO 11/12/16 03:15 (Morphine Inj) 2 mg Q2H PRN IV PUSH 11/12/16 03:30 11/16/16 05:12 (Zofran Inj) 4 mg Q6H PRN IV 11/12/16 03:15 11/16/16 05:23 (Ambien) 5 mg HS PRN PO 11/12/16 03:15 (Heparin Inj) 5,000 units Q12H SQ 11/12/16 06:00 Hold 11/13/16 04:44 Miscellaneous Information 1 Q361D XX 11/12/16 03:15 11/12/16 03:15 (Chlorhexidine 2% Cloth) 3 pack Taper DAILY@04 TOP 11/12/16 04:00 11/08/17 03:59 11/15/16 04:00 (Chlorhexidine 2% Cloth) 3 pack UNSCH PRN TOP 11/12/16 03:15 (Adele-Colace) 1 tab BID PO 11/12/16 09:00 11/15/16 20:43 (Milk Of Magnesia Liq) 30 ml Q12H PRN PO 11/12/16 03:15 (Senokot) 17.2 mg Q12H PRN PO 11/12/16 03:15 (Dulcolax Supp) 10 mg DAILY PRN RECTAL 11/12/16 03:15 Lactulose 30 ml 30 ml DAILY PRN PO 11/12/16 03:15 (Zosyn 3.375 Gm Premix) 50 ml @ 100 mls/hr Q6H IV 11/12/16 06:00 11/16/16 12:36 (NovoLOG SUPPLEMENTAL SCALE) 1 Q4HR SQ 11/13/16 12:00 11/16/16 12:27 (Phenergan Supp) 25 mg Q6H PRN RECTAL 11/13/16 14:45 11/15/16 20:37 Famotidine 10 mg 10 mg Q12HR IV PUSH 11/15/16 09:00 11/16/16 09:13 (Cardizem Inj/NS Inj) 125 ml @ 0 mls/hr TITRATE IV 11/14/16 16:15 Levothyroxine Sodium 125 mcg 125 mcg DAILY@0600 PO 11/16/16 06:00 11/16/16 05:11 Lactated Ringer's 1,000 ml @ 30 mls/hr Q24H PRN IV 11/15/16 14:15 11/18/16 14:14 (NS 500 ml Inj) 500 ml @ 30 mls/hr [id number] PRN IV 11/15/16 14:15 11/18/16 14:14 Miscellaneous Information ALL NURSING DEPARTME... UNSCH PRN .XX 11/15/16 16:57 11/16/16 16:56 (Levemir Inj) 10 units DAILY SQ 11/16/16 11:00 11/16/16 12:28 Vital Signs / I&O Vital Signs Date Time Temp Pulse Resp B/P Pulse Ox O2 Delivery O2 Flow Rate FiO2 11/16/16 11:47 79 11/16/16 08:09 98.6 83 17 131/62 96 11/16/16 08:00 Nasal Cannula 2.00 11/16/16 04:00 97.4 85 18 123/62 96 11/16/16 04:00 Nasal Cannula 2.00 11/16/16 00:00 Nasal Cannula 2.00 11/16/16 00:00 97.7 98 18 166/77 95 11/15/16 20:18 86 11/15/16 20:00 98.1 86 18 107/50 98 11/15/16 20:00 Nasal Cannula 2.00 11/15/16 18:00 97.5 90 19 104/51 96 Nasal Cannula 2 11/15/16 17:45 90 19 97/51 95 Nasal Cannula 2 11/15/16 17:30 93 16 101/47 93 Nasal Cannula 2 11/15/16 17:15 97 15 120/53 97 Nasal Cannula 2 11/15/16 17:00 81 22 114/55 92 Nasal Cannula 5 11/15/16 16:57 97.6 82 12 118/55 94 Nasal Cannula 5 I/O 7/20/17 7/20/17 7/20/17 7/21/17 7/21/17 7/21/17 07:00 15:00 23:00 07:00 15:00 23:00 Intake Total 1197 ml 619 ml 2387 ml 997 ml Output Total 100 ml 525 ml 450 ml Balance 1097 ml 619 ml 1862 ml 547 ml Intake Oral 0 ml 0 ml 0 ml IV Total 1197 ml 619 ml 1387 ml 997 ml Other 1000 ml Output Urine Total 100 ml 475 ml 450 ml Estimated Blood Loss 50 ml # Bowel Movements 1 Physical Exam GENERAL: In NAD SKIN: Warm and dry. HEAD: Normocephalic. EYES: No scleral icterus. No injection or drainage. NECK: Supple, trachea midline. No JVD or lymphadenopathy. CARDIOVASCULAR: Regular rate and rhythm without murmurs, gallops, or rubs. RESPIRATORY: Breath sounds equal bilaterally. No accessory muscle use. GASTROINTESTINAL: Abdomen soft, nondistended. MUSCULOSKELETAL: No cyanosis, or edema. . Laboratory Laboratory Tests Test 11/15/16 11/16/16 18:53 07:04 Potassium Level 3.9 MEQ/L 3.5 MEQ/L White Blood Count 9.4 TH/MM3 Red Blood Count 3.20 MIL/MM3 Hemoglobin 9.4 GM/DL Hematocrit 27.6 % Mean Corpuscular Volume 86.0 FL Mean Corpuscular Hemoglobin 29.2 PG Mean Corpuscular Hemoglobin 34.0 % Concent Red Cell Distribution Width 13.6 % Platelet Count 138 TH/MM3 Mean Platelet Volume 10.9 FL Neutrophils (%) (Auto) 86.9 % Lymphocytes (%) (Auto) 6.6 % Monocytes (%) (Auto) 6.3 % Eosinophils (%) (Auto) 0.0 % Basophils (%) (Auto) 0.2 % Neutrophils # (Auto) 8.2 TH/MM3 Lymphocytes # (Auto) 0.6 TH/MM3 Monocytes # (Auto) 0.6 TH/MM3 Eosinophils # (Auto) 0.0 TH/MM3 Basophils # (Auto) 0.0 TH/MM3 CBC Comment DIFF FINAL Differential Comment Sodium Level 146 MEQ/L Chloride Level 113 MEQ/L Carbon Dioxide Level 21.3 MEQ/L Anion Gap 12 MEQ/L Blood Urea Nitrogen 30 MG/DL Creatinine 0.94 MG/DL Estimat Glomerular Filtration 57 ML/MIN Rate Random Glucose 209 MG/DL Calcium Level 8.3 MG/DL Imaging Last Impressions GI Procedure 11/13/16 0000 Signed Impressions: Service Date/Time: Sunday, November 13, 2016 08:58 - CONCLUSION: ERCP as above. Cristo Fields MD Cholangiopancreatography MRI 11/12/16 0000 Signed Impressions: Service Date/Time: Saturday, November 12, 2016 12:45 - CONCLUSION: Numerous gallstones with at least one filling defect in the distal common bile duct which is dilated to 11 mm. Bilateral lower lobe atelectasis. Bilateral breast augmentation. Cristo Fields MD Gall Bladder Ultrasound 11/11/16 0000 Signed Impressions: Service Date/Time: Friday, November 11, 2016 23:42 - CONCLUSION: 1. Multiple echogenic densities are seen within the gallbladder suggestive of stones and polyps. There is thickening of the gallbladder wall and there is a trace of fluid around the gallbladder. These findings can be demonstrated with either acute or chronic cholecystitis. Recommend correlation with patient's physical, clinical exam and laboratory values. 2. There is dilatation of the common bile duct at 10 mm. 3. 5 mm nonobstructing stone mid pole right kidney. 4. 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 Tre Brantley MD Assessment and Plan Problem List: (1) Paroxysmal a-fib (2) CAD (coronary artery disease) (3) Diabetes (4) Hypothyroidism (5) Gallbladder & bile duct stone with obstruction (6) Acute cholecystitis due to biliary calculus Assessment and Plan Tolerated surgery well. Stays in SR. No angina or CHF. Start anticoagulation with Eliquis 5 mg BID for paroxysmal AF once OK with surgery. Anticipate discharge soon. Will schedule cardiology f/u in our office after discharge. Michael Nava MD Nov 16, 2016 13:18
--- NOTE | 2016-11-16 14:18 | HHI.PR ---
Subjective Subjective Notes DAILY PROGRESS NOTE FOR SURGICAL ATTENDING, DR. ARNAV THOMAS Patient had some nausea and vomiting in the postoperative period feels much better this morning Objective Vitals/I&O Vital Signs Date Time Temp Pulse Resp B/P Pulse Ox O2 Delivery O2 Flow Rate FiO2 11/16/16 12:02 98.0 79 18 140/64 96 11/16/16 08:00 Nasal Cannula 2.00 Labs Laboratory Tests Test 11/15/16 11/16/16 18:53 07:04 Potassium Level 3.9 3.5 White Blood Count 9.4 Red Blood Count 3.20 Hemoglobin 9.4 Hematocrit 27.6 Mean Corpuscular Volume 86.0 Mean Corpuscular Hemoglobin 29.2 Mean Corpuscular Hemoglobin 34.0 Concent Red Cell Distribution Width 13.6 Platelet Count 138 Mean Platelet Volume 10.9 Neutrophils (%) (Auto) 86.9 Lymphocytes (%) (Auto) 6.6 Monocytes (%) (Auto) 6.3 Eosinophils (%) (Auto) 0.0 Basophils (%) (Auto) 0.2 Neutrophils # (Auto) 8.2 Lymphocytes # (Auto) 0.6 Monocytes # (Auto) 0.6 Eosinophils # (Auto) 0.0 Basophils # (Auto) 0.0 CBC Comment DIFF FINAL Differential Comment Sodium Level 146 Chloride Level 113 Carbon Dioxide Level 21.3 Anion Gap 12 Blood Urea Nitrogen 30 Creatinine 0.94 Estimat Glomerular Filtration 57 Rate Random Glucose 209 Calcium Level 8.3 Date/Time Procedure Status Source Growth 11/12/16 03:40 Aerobic Blood Culture - Preliminary Resulted Blood Peripheral NO GROWTH IN 4 DAYS 11/12/16 03:40 Anaerobic Blood Culture - Preliminary Resulted Blood Peripheral NO GROWTH IN 4 DAYS Radiology Last Impressions Cholangiopancreatography MRI 11/12/16 0000 Signed Impressions: Service Date/Time: Saturday, November 12, 2016 12:45 - CONCLUSION: Numerous gallstones with at least one filling defect in the distal common bile duct which is dilated to 11 mm. Bilateral lower lobe atelectasis. Bilateral breast augmentation. Cristo Fields MD Gall Bladder Ultrasound 11/11/16 0000 Signed Impressions: Service Date/Time: Friday, November 11, 2016 23:42 - CONCLUSION: 1. Multiple echogenic densities are seen within the gallbladder suggestive of stones and polyps. There is thickening of the gallbladder wall and there is a trace of fluid around the gallbladder. These findings can be demonstrated with either acute or chronic cholecystitis. Recommend correlation with patient's physical, clinical exam and laboratory values. 2. There is dilatation of the common bile duct at 10 mm. 3. 5 mm nonobstructing stone mid pole right kidney. 4. 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 Tre Brantley MD Cardiovascular: Regular Lungs: Clear Abdomen: Post-op tenderness Extremities: No edema, SCD's on Narrative Exam Patient picking at a meal No distress Once gluten-free food A/P Problem List: (1) Common bile duct (CBD) obstruction (2) Acute cholecystitis due to biliary calculus (3) Gallstones and inflammation of gallbladder with obstruction (4) Blood glucose elevated (5) Abdominal pain (6) Elevated LFTs (7) Abnormal findings on diagnostic imaging of liver and biliary tract (8) Abnormal findings on imaging of biliary tract (9) Right upper quadrant abdominal pain (10) S/P ERCP (11) Gallbladder & bile duct stone with obstruction (12) Hypothyroidism (13) Paroxysmal a-fib (14) Diabetes (15) Status post laparoscopic cholecystectomy Assessment and Plan 81 year old female with acute cholecystitis; s/p ERCP with stone removal Cleared by cardiology for surgery that was done yesterday She is recovering from her surgery had some mild nausea and vomiting yesterday Attending Statement NOTE FOR SURGICAL ATTENDING, DR. ARNAV THOMAS Patient recovering once a gluten-free diet I think because of the amount of nausea and vomiting she had last night and her weakness we are to keep her until she recovers may be another 48 hours I agree with above assessment and plan. The exam, history, and the medical decision-making described in the above note were completed with the assistance of the mid-level provider. I reviewed and agree with the findings presented. I attest that I had a [id number] encounter with the patient on the same day, and personally performed and documented my assessment and findings in the medical record. The following services were provided during this hospital visit: Chart data review, vital sign assessments/reviewing monitor data Review of consultations notes if present. Medication orders/review and/or management Ordering and/or reviewing lab tests Ordering and/or interpreting/reviewing x-rays and/or diagnostic studies Care of the patient and discussion of the patient with the care team Documentation time To help prompt me to consider important information that might be impacting today's encounter and assessment, information from prior notes written by myself or my colleagues may have been "brought forward/copy and pasted" into today's note. Problem Qualifiers (1) Gallstones and inflammation of gallbladder with obstruction: Qualified Code: K80.67 - Calculus of gallbladder and bile duct with acute on chronic cholecystitis, with obstruction (2) Abdominal pain: Qualified Code: R10.11 - Right upper quadrant abdominal pain Arnav Thomas MD Nov 16, 2016 14:17
[2016-11-16] MEDS ORDERED: PILL SPLITTER OTHER PRN (15:45)
[2016-11-16] MEDS ORDERED: DEXT 5%-NACL 0.45% 1000 ML INJ 1,000 ML IV SCH (19:30)
[2016-11-16] MEDS: FAMOTIDINE 20 MG TAB PO SCH (20:35)
[2016-11-16] MEDS: SODIUM CHLOR 0.45% 1000 ML INJ 1,000 ML IV SCH (21:13)
[2016-11-17] VITALS (7 sets, daily range): BP systolic 98–134; BP diastolic 54–66; PULSE 75–150; RESP 16–20; TEMP 97–98.5; O2SAT 90–97
[2016-11-17] MEDS: INSULIN ASPART SUPPLEMENTAL SCALE SQ SCH ×6 (04:00→20:00)
[2016-11-17] MEDS: CHLORHEXIDINE GLUCONATE 2 % 1 PACK (2 CLOTHS) TOP SCH (04:00)
[2016-11-17 05:37] LABS: HEMATOCRIT 25.8 % (35.0-46.0); MEAN CELL VOLUME 86.1 FL (80.0-100.0); MEAN CORPUSCULAR HEMOGLOBIN 28.8 PG (27.0-34.0); MEAN CORPUSCULAR HGB CONC 33.5 % (32.0-36.0); PLATELET COUNT 131 TH/MM3 (150-450); RED CELL DISTRIBUTION WIDTH 13.4 % (11.6-17.2); REVIEW FLAG FINAL; WHITE BLOOD COUNT 7.4 TH/MM3 (4.0-11.0)
[2016-11-17] MEDS: LEVOTHYROXINE SODIUM 125 MCG TAB PO SCH (06:05)
[2016-11-17] MEDS: SODIUM CHLOR 0.45% 1000 ML INJ 1,000 ML IV SCH ×2 (06:05→18:04)
[2016-11-17 06:51] LABS: BICARBONATE 23.9 MEQ/L (21.0-32.0)
[2016-11-17 07:09] LABS: POTASSIUM 2.9 MEQ/L (3.5-5.1)
[2016-11-17] MEDS ORDERED: DILTIAZEM HCL 25 MG/5 ML VIAL IV ONE (08:30)
[2016-11-17] MEDS ORDERED: POTASSIUM CHLORIDE 25 MEQ EFFERVESCENT TAB PO ONE (08:30)
[2016-11-17] MEDS: SODIUM CHLORIDE 0.9% FLUSH 10 ML FLUSH SCH ×2 (09:04→21:16)
[2016-11-17] MEDS: DOCUSATE SODIUM 50 MG/SENNA 8.6 MG TAB PO SCH ×2 (09:04→21:00)
[2016-11-17] MEDS: FAMOTIDINE 20 MG TAB PO SCH ×2 (09:04→21:16)
[2016-11-17] MEDS: INSULIN DETEMIR 100 UNITS/ML VIAL SQ SCH (09:06)
--- NOTE | 2016-11-17 10:08 | MP ---
cc: CORNELIA TABARES M.D., GERALD R. D.O. BIANCHI, JOSEPH D. M.D. DATE OF SURGERY: 11/15/2016 PREOPERATIVE DIAGNOSIS: History of Choledocholithiasis cholelithiasis status post ERCP POSTOPERATIVE DIAGNOSIS Chronic cholecystitis, cholelithiasis and large cystic duct. PROCEDURE Laparoscopic cholecystectomy ANESTHESIA General SURGEON Dr. Martha MD. INDICATIONS FOR PROCEDURE: This is a pleasant elderly female who was found have choledocholithiasis with elevated liver enzymes she underwent a ERCP to extract her stones. She had a brief episode atrial fibrillation in the post ER p.c. recovery phase. This resolved. She had cardiac clearance and plans were made for cholecystectomy. PROCEDURE The patient was taken to the operating room and placed supine on operating room table, after anesthesia her abdomen is prepped Betadine we made an incision below the umbilicus. Veress needle was inserted. The saline test performed. The abdomen is inflated 15 mmHg. 10 mm trocar was introduced two other working ports placed 5 mm in between two previously placed ports and a third and fourth working port the right upper quadrant. The gallbladder I can see obviously inflamed. She has a enlarged left floppy lobe of the liver that is somewhat obscures visualization, that's the reason for the fourth port. Able to grasp the gallbladder superiorly and laterally, identifying the cystic duct that is quite large and elongated. The cystic artery is small and he does needle little bit. We were able to get two clips on the segment to cease bleeding. Because of the size of the cystic duct the clip filling separator does not fit for this reason we do a dome down technique to completely free the gallbladder up from the liver parenchyma. After this was done we then placed two PDS Endo ties around the cystic duct about a 1/2 cm from the common duct junction. We then placed a third PDS along the gallbladder, close the gallbladder and the cystic duct is then divided placed in EndoCatch and pulled out through the umbilical incision which must be elongated because of size of the gallbladder. The trocar was then replaced we irrigate copiously. Hemostasis is assured, photos were taken. The appendix was visualized, it is normal, liver smooth, peritoneal surfaces smooth. After the CO2 and irrigating solution removed, the trocars were removed, the umbilical incision closed with 0 Vicryl at the fascial layer and skin is closed with 4-0 Vicryl. Steri-Strips applied. Sterile bandage applied. The patient tolerated the procedure with no immediate postop complications. MD LEV Murray/gali /5:47 PM /10:04 AM
[2016-11-17] MEDS: DILTIAZEM 125 MG/NS 100 ML IV SCH ×4 (10:40→18:04)
--- NOTE | 2016-11-17 13:15 | HHI.PR ---
Subjective Remarks pt had episode of tachacardia this am cardiology consulted cardizem drip started k low at 2.9 50 meq given Objective Vital Signs Date Time Temp Pulse Resp B/P Pulse Ox O2 Delivery O2 Flow Rate FiO2 11/17/16 12:10 135 11/17/16 12:00 98.3 122 18 106/63 91 11/17/16 11:58 Simple Mask 2.00 11/17/16 08:00 97.0 150 18 100/59 93 11/17/16 04:00 98.2 76 16 134/61 92 11/17/16 00:00 98.3 75 16 98/54 92 11/16/16 20:00 98.7 80 18 114/58 93 11/16/16 20:00 Nasal Cannula 2.00 11/16/16 16:02 97.9 87 18 135/63 94 11/16/16 16:00 Nasal Cannula 2.00 I/O 11/16/16 11/16/16 11/16/16 11/17/16 11/17/16 11/17/16 06:59 14:59 22:59 06:59 14:59 22:59 Intake Total 997 ml 480 ml Output Total 450 ml 75 ml 125 ml 100 ml Balance 547 ml 405 ml -125 ml -100 ml Intake Oral 0 ml 480 ml IV Total 997 ml Output Urine Total 450 ml 75 ml 125 ml 100 ml # Bowel Movements 0 Result Diagram: 11/17/16 0405 11/17/16 0405 Procedures ERCP on the Objective Remarks GENERAL: SKIN: Warm and dry. HEAD: Atraumatic. Normocephalic. EYES: Pupils equal and round. No scleral icterus. No injection or drainage. ENT: No nasal bleeding or discharge. Mucous membranes pink and moist. NECK: Trachea midline. No JVD. CARDIOVASCULAR: tachy was up to 180s but now 120 130 RESPIRATORY: No accessory muscle use. Clear to auscultation. Breath sounds equal bilaterally. GASTROINTESTINAL: Abdomen soft, tender, MUSCULOSKELETAL: Extremities without clubbing, cyanosis, or edema. No obvious deformities. NEUROLOGICAL: Awake and alert.anxious No obvious cranial nerve deficits. Motor grossly within normal limits. Normal speech. PSYCHIATRIC: Appropriate mood and affect; insight and judgment normal anxious. Assessment and Plan Problem List: (1) Gallbladder & bile duct stone with obstruction Status: Acute Plan: cholecystectomy performed (2) Sepsis Status: Acute Plan: consult ID (3) Diabetes Status: Acute Plan: accuchecks and coverage Assessment and Plan dc thyroid as this may inhance tachacardia k supplemented await stat lytes cardizem drip per cardiology will asses cxr Discussed Condition With pt and nursing Anastacio Gurrola DO Nov 17, 2016 13:15
--- NOTE | 2016-11-17 14:35 | RADRPT ---
EXAM DATE/TIME: 11/17/2016 14:13 [facility] COMPARISON: No previous studies available for comparison. INDICATIONS : Shortness of breath. MEDICAL HISTORY : Hypothyroidism. Diabetic. Cholelithiasis. SURGICAL HISTORY : Rotator cuff, left. ENCOUNTER: Initial ACUITY: 1 day PAIN SCORE: 0/10 LOCATION: Bilateral chest FINDINGS: Moderate bilateral pleural effusions seen with bibasilar consolidation and/or compressive collapse. T here may be mild case of pulmonary edema as well. Heart and mediastinum are unremarkable for techniqu e. CONCLUSION: Bilateral pleural effusions and bibasilar consolidation and/or compressive collapse. Haider Walker MD on November 17, 2016 at 14:32 Board Certified Radiologist. This report was verified electronically.
[2016-11-17 15:59] LABS: BICARBONATE 24.9 MEQ/L (21.0-32.0); POTASSIUM 3.5 MEQ/L (3.5-5.1)
[2016-11-17] MEDS: ONDANSETRON HCL 4 MG/2 ML VIAL IV PRN (16:26)
[2016-11-17] MEDS: LEVOFLOXACIN 500 MG TAB PO SCH (16:26)
[2016-11-17] MEDS: metroNIDAZOLE 500 MG TAB PO SCH ×2 (16:26→21:16)
--- NOTE | 2016-11-17 16:28 | PD.CONS ---
History of Present Illness Service Infectious disease Consult Requested By Dr. Gurrola Reason for Consult Evaluate patient for possible sepsis Primary Care Physician Anastacio Gurrola, DO Diagnoses: History of Present Illness Patient seen and examined. Records reviewed. Patient is an 81-year-old female, presented to the hospital complaining of right upper quadrant pain. Patient has had previous episode of gallbladder problem and has known cholelithiasis. Actually being evaluated for surgery, but her symptoms improved. She started having symptoms again about a week or so ago and they were intermittent. On the day of admission the pain was very severe and more persistent, and she also had vomiting. She presented to the hospital for further evaluation and treatment. She denies any fever although she's been having some chills. Ultrasound of the gallbladder showed wall thickening of the gallbladder, and some pericholecystic fluid. Her LFTs were elevated. Her initial WBC was low at 3.7. Patient was admitted as acute cholecystitis. She underwent ERCP and had sphincterotomy, and stone extraction. This was done November 13. On November 15 she underwent laparoscopic cholecystectomy. Patient had been getting IV Zosyn, and the antibiotic was stopped yesterday. Patient apparently has been having nausea and vomiting since postop. She's also been having shortness of breath. She is not coughing or bringing up any phlegm. She's had bowel movement. She is voiding without any problem. She had a Belcher catheter in place and that was removed yesterday. Today the patient developed tachycardia, and infectious disease consultation has been requested to evaluate for possible sepsis. Patient states her breathing is better today than from previous stays. Her WBC is normal. She has not had any fever. Her chest x-ray showing evidence of pulmonary edema with bilateral effusion and compressive atelectasis. Review of Systems Constitutional: COMPLAINS OF: Chills, Change in appetite, DENIES: Fever Ears, nose, mouth, throat: DENIES: Nasal discharge, Oral lesions, Throat pain, Ear Pain, Sinus Pain Respiratory: COMPLAINS OF: Shortness of breath, DENIES: Cough, Sputum production Cardiovascular: COMPLAINS OF: Dyspnea on Exertion, DENIES: Chest pain, Palpitations Gastrointestinal: COMPLAINS OF: Abdominal pain, Nausea, Vomiting, DENIES: Diarrhea, Difficulty Swallowing Genitourinary: DENIES: Dysuria Musculoskeletal: DENIES: Joint pain, Joint Swelling Integumentary: DENIES: Rash Neurologic: DENIES: Headache Psychiatric: DENIES: Confusion, Hallucinations Past Family Social History Allergies: Coded Allergies: No Known Allergies (Unverified , 11/11/16) Past Medical History Diabetes Hypothyroidism History of kidney stones Previous episode of cholecystitis, and gallstone Past Surgical History Recent laparoscopic cholecystectomy Recent ERCP and sphincterotomy, and stone extraction Active Ordered Medications Tylenol Albuterol Dulcolax Cardizem Pepcid Insulin Lactulose Synthroid MOM Zofran Phenergan Adele-Colace Senokot Ambien Family History Noncontributory to current ID problem Social History No smoking Alcohol abuse Node illicit drugs Physical Exam Vital Signs Vital Signs Date Time Temp Pulse Resp B/P Pulse Ox O2 Delivery O2 Flow Rate FiO2 11/17/16 12:10 135 11/17/16 12:00 98.3 122 18 106/63 91 11/17/16 11:58 Simple Mask 2.00 11/17/16 08:00 97.0 150 18 100/59 93 11/17/16 04:00 98.2 76 16 134/61 92 11/17/16 00:00 98.3 75 16 98/54 92 11/16/16 20:00 98.7 80 18 114/58 93 11/16/16 20:00 Nasal Cannula 2.00 Physical Exam GENERAL: Patient is a thin, well-developed CF, awake and alert, dyspneic at rest SKIN: Warm and dry. No generalized rash, no ecchymoses and no evidence of embolic lesions. HEAD: Atraumatic. Normocephalic. No temporal wasting, or tenderness. EYES: Cash conjunctiva. No petechia or hemorrhage. Pupils equal, round and reactive to light. Extraocular movements full and intact. No scleral icterus. No injection or drainage. EARS, NOSE AND THROAT: Nose without bleeding or purulent nasal discharge. No sinus tenderness. Mucous membranes pink and moist. No oral lesions noted. No exudate. No oral thrush. NECK: Trachea midline. Supple and not tender, no meningeal signs CARDIOVASCULAR: Regular rate and rhythm, tachycardic. No murmurs, rubs or gallops heard RESPIRATORY: Coarse BS bilaterally, decreased BS at bases C/W effusions, with decreased vocal fremitus, no E to A changes ABDOMEN: Distended, with hypoactive bowel sounds and mild tenderness. Incisions dry and no redness. Tympanitic on percussion, no guarding or rebound. EXTREMITIES: No clubbing, cyanosis, or edema. No joint effusion, has good ROM. No calf tenderness. Well perfused and warm. NEUROLOGICAL: Awake and alert. Cranial nerves grossly intact. Motor grossly within normal limits. PSYCHIATRIC: Normal affect, calm and cooperative. LINE: No evidence of infection Laboratory Laboratory Tests Test 11/17/16 11/17/16 04:05 15:12 White Blood Count 7.4 Red Blood Count 3.00 Hemoglobin 8.6 Hematocrit 25.8 Mean Corpuscular Volume 86.1 Mean Corpuscular Hemoglobin 28.8 Mean Corpuscular Hemoglobin 33.5 Concent Red Cell Distribution Width 13.4 Platelet Count 131 Mean Platelet Volume 10.1 Sodium Level 142 142 Potassium Level 2.9 3.5 Chloride Level 110 109 Carbon Dioxide Level 23.9 24.9 Anion Gap 8 8 Blood Urea Nitrogen 24 20 Creatinine 0.76 0.89 Estimat Glomerular Filtration 73 61 Rate Random Glucose 87 118 Calcium Level 7.7 8.1 Result Diagram: 11/17/16 0405 11/17/16 1512 Imaging RADIOLOGY STUDIES/FILMS REVIEWED Chest X-Ray 11/17/16 0000 Signed Impressions: Service Date/Time: Thursday, November 17, 2016 14:13 - CONCLUSION: Bilateral pleural effusions and bibasilar consolidation and/or compressive collapse. Haider Walker MD GI Procedure 11/13/16 0000 Signed Impressions: Service Date/Time: Sunday, November 13, 2016 08:58 - CONCLUSION: ERCP as above. Cristo Fields MD Cholangiopancreatography MRI 11/12/16 0000 Signed Impressions: Service Date/Time: Saturday, November 12, 2016 12:45 - CONCLUSION: Numerous gallstones with at least one filling defect in the distal common bile duct which is dilated to 11 mm. Bilateral lower lobe atelectasis. Bilateral breast augmentation. Cristo Fields MD Gall Bladder Ultrasound 11/11/16 0000 Signed Impressions: Service Date/Time: Friday, November 11, 2016 23:42 - CONCLUSION: 1. Multiple echogenic densities are seen within the gallbladder suggestive of stones and polyps. There is thickening of the gallbladder wall and there is a trace of fluid around the gallbladder. These findings can be demonstrated with either acute or chronic cholecystitis. Recommend correlation with patient's physical, clinical exam and laboratory values. 2. There is dilatation of the common bile duct at 10 mm. 3. 5 mm nonobstructing stone mid pole right kidney. 4. 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 Tre Brantley MD Assessment and Plan Assessment and Plan IMPRESSION Bilateral effusions and atelectasis, infiltrates, likely fluid, ?aspiration, has been having N/V - though she is not coughing much but does complain of SOB S/P lap marilyn for acute cholecystitis S/P ERCP, sphincterotomy and stone extraction Nausea and vomiting, etiology? RECOMMENDATION Check LFT, amylase and lipase Check UA and C/S Start Levaquin and Flagyl empitic coverage for PNA Follow C/S Bladder scan Monitor progress I will make further recommendation of Abx once work-up is completed I will follow along with you Thank you for this consultation Discussed Condition With Explained plan to the patient D/W Isamar Galvan MD Nov 17, 2016 16:28
--- NOTE | 2016-11-17 17:34 | HHI.PR ---
Subjective Subjective Notes Nauseous; reports this happens every time she gets anesthesia. Objective Vitals/I&O Vital Signs Date Time Temp Pulse Resp B/P Pulse Ox O2 Delivery O2 Flow Rate FiO2 11/17/16 16:00 98.5 137 20 116/55 97 11/17/16 11:58 Simple Mask 2.00 Labs Laboratory Tests Test 11/17/16 11/17/16 04:05 15:12 White Blood Count 7.4 Red Blood Count 3.00 Hemoglobin 8.6 Hematocrit 25.8 Mean Corpuscular Volume 86.1 Mean Corpuscular Hemoglobin 28.8 Mean Corpuscular Hemoglobin 33.5 Concent Red Cell Distribution Width 13.4 Platelet Count 131 Mean Platelet Volume 10.1 Sodium Level 142 142 Potassium Level 2.9 3.5 Chloride Level 110 109 Carbon Dioxide Level 23.9 24.9 Anion Gap 8 8 Blood Urea Nitrogen 24 20 Creatinine 0.76 0.89 Estimat Glomerular Filtration 73 61 Rate Random Glucose 87 118 Calcium Level 7.7 8.1 Radiology Last Impressions Cholangiopancreatography MRI 11/12/16 0000 Signed Impressions: Service Date/Time: Saturday, November 12, 2016 12:45 - CONCLUSION: Numerous gallstones with at least one filling defect in the distal common bile duct which is dilated to 11 mm. Bilateral lower lobe atelectasis. Bilateral breast augmentation. Cristo Fields MD Gall Bladder Ultrasound 11/11/16 0000 Signed Impressions: Service Date/Time: Friday, November 11, 2016 23:42 - CONCLUSION: 1. Multiple echogenic densities are seen within the gallbladder suggestive of stones and polyps. There is thickening of the gallbladder wall and there is a trace of fluid around the gallbladder. These findings can be demonstrated with either acute or chronic cholecystitis. Recommend correlation with patient's physical, clinical exam and laboratory values. 2. There is dilatation of the common bile duct at 10 mm. 3. 5 mm nonobstructing stone mid pole right kidney. 4. 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 Tre Brantley MD Lungs: Clear Abdomen: Non-distended, Post-op tenderness Narrative Exam Steristrips dry and intact A/P Problem List: (1) Common bile duct (CBD) obstruction (2) Acute cholecystitis due to biliary calculus (3) Gallstones and inflammation of gallbladder with obstruction (4) Blood glucose elevated (5) Abdominal pain (6) Elevated LFTs (7) Abnormal findings on diagnostic imaging of liver and biliary tract (8) Abnormal findings on imaging of biliary tract (9) Right upper quadrant abdominal pain (10) S/P ERCP (11) Gallbladder & bile duct stone with obstruction (12) Hypothyroidism (13) Paroxysmal a-fib (14) Diabetes (15) Status post laparoscopic cholecystectomy Assessment and Plan POD #2 Lap cholecystectomy POD #4 ERCP Slowly recovering D/C planning Problem Qualifiers (1) Gallstones and inflammation of gallbladder with obstruction: Qualified Code: K80.67 - Calculus of gallbladder and bile duct with acute on chronic cholecystitis, with obstruction (2) Abdominal pain: Qualified Code: R10.11 - Right upper quadrant abdominal pain Elan Mansfield MD Nov 17, 2016 17:34
[2016-11-17 17:46] LABS: TOTAL BILIRUBIN ADULT 0.3 MG/DL (0.2-1.0)
[2016-11-17 17:59] LABS: INDIRECT BILIRUBIN 0.1 MG/DL (0.0-0.8)
[2016-11-18] VITALS (10 sets, daily range): BP systolic 109–136; BP diastolic 54–63; PULSE 74–101; RESP 16–20; TEMP 97.4–98.8; O2SAT 92–96
[2016-11-18] MEDS: ZOLPIDEM TARTRATE 5 MG TAB PO PRN (00:43)
[2016-11-18] MEDS: INSULIN ASPART SUPPLEMENTAL SCALE SQ SCH ×7 (00:54→23:42)
[2016-11-18] MEDS: SODIUM CHLOR 0.45% 1000 ML INJ 1,000 ML IV SCH (03:28)
[2016-11-18] MEDS: CHLORHEXIDINE GLUCONATE 2 % 1 PACK (2 CLOTHS) TOP SCH (04:00)
[2016-11-18] MEDS: metroNIDAZOLE 500 MG TAB PO SCH ×2 (05:07→12:34)
[2016-11-18] MEDS: LEVOTHYROXINE SODIUM 125 MCG TAB PO SCH (05:07)
[2016-11-18 07:04] LABS: AUTOMATED NEUTROPHIL # 5.4 TH/MM3 (1.8-7.7); BASOPHIL % 0.3 % (0.0-2.0); EOSINOPHIL # 0.2 TH/MM3 (0-0.4); EOSINOPHIL % 2.4 % (0.0-4.0); HEMATOCRIT 26.7 % (35.0-46.0); HEMO FLAGS DIFF FINAL; LYMPHOCYTE # 0.9 TH/MM3 (1.0-4.8); MEAN CELL VOLUME 86.5 FL (80.0-100.0); MEAN CORPUSCULAR HGB CONC 33.5 % (32.0-36.0); MONO % 9.6 % (0.0-8.0); NEUT % 75.7 % (16.0-70.0); PLATELET COUNT 131 TH/MM3 (150-450); RED BLOOD COUNT 3.08 MIL/MM3 (4.00-5.30); RED CELL DISTRIBUTION WIDTH 13.5 % (11.6-17.2); WHITE BLOOD COUNT 7.2 TH/MM3 (4.0-11.0)
[2016-11-18 07:23] LABS: BICARBONATE 23.4 MEQ/L (21.0-32.0); POTASSIUM 3.3 MEQ/L (3.5-5.1)
[2016-11-18] MEDS: INSULIN DETEMIR 100 UNITS/ML VIAL SQ SCH (08:25)
[2016-11-18] MEDS: LEVOFLOXACIN 500 MG TAB PO SCH (08:29)
[2016-11-18] MEDS: DOCUSATE SODIUM 50 MG/SENNA 8.6 MG TAB PO SCH ×2 (08:29→19:52)
[2016-11-18] MEDS: FAMOTIDINE 20 MG TAB PO SCH ×2 (08:29→19:50)
[2016-11-18] MEDS: SODIUM CHLORIDE 0.9% FLUSH 10 ML FLUSH SCH ×2 (08:29→19:49)
[2016-11-18] MEDS ORDERED: POTASSIUM CHLORIDE 20 MEQ CONTROLLED RELEASE TAB PO SCH (09:00)
[2016-11-18] MEDS: RESP: ALBUTEROL 2.5 MG/3 ML NEB (SCH) INH ×4 (09:08→19:13)
--- NOTE | 2016-11-18 09:59 | HHI.IDPN ---
Subjective Subjective Remarks Patient is an 81-year-old female, presented to the hospital complaining of right upper quadrant pain. Patient has had previous episode of gallbladder problem and has known cholelithiasis. Actually being evaluated for surgery, but her symptoms improved. She started having symptoms again about a week or so ago and they were intermittent. On the day of admission the pain was very severe and more persistent, and she also had vomiting. She presented to the hospital for further evaluation and treatment. She denies any fever although she's been having some chills. Ultrasound of the gallbladder showed wall thickening of the gallbladder, and some pericholecystic fluid. Her LFTs were elevated. Her initial WBC was low at 3.7. Patient was admitted as acute cholecystitis. She underwent ERCP and had sphincterotomy, and stone extraction. This was done November 13. On November 15 she underwent laparoscopic cholecystectomy. Patient had been getting IV Zosyn, and the antibiotic was stopped yesterday. Patient apparently has been having nausea and vomiting since postop. She's also been having shortness of breath. She is not coughing or bringing up any phlegm. She's had bowel movement. She is voiding without any problem. She had a Belcher catheter in place and that was removed yesterday. Today the patient developed tachycardia, and infectious disease consultation has been requested to evaluate for possible sepsis. Patient states her breathing is better today than from previous stays. Notes reviewed Temps ok Still looks SOB, but she states better Not coughing C/O nausea, no vomiting Some mild abdominal discomfort Antibiotics Levaquin Flagyl Lines PIV Past Medical History Diabetes Hypothyroidism History of kidney stones Previous episode of cholecystitis, and gallstone Past Surgical History Recent laparoscopic cholecystectomy Recent ERCP and sphincterotomy, and stone extraction Allergies: Coded Allergies: No Known Allergies (Unverified , 11/11/16) Objective . Vital Signs Date Time Temp Pulse Resp B/P Pulse Ox O2 Delivery O2 Flow Rate FiO2 11/18/16 08:09 97.4 81 18 127/63 93 11/18/16 04:00 98.1 76 16 109/54 92 11/18/16 01:10 94 Nasal Cannula 4.00 11/18/16 00:00 98.4 74 16 111/56 94 11/17/16 21:00 92 Nasal Cannula 3.00 11/17/16 20:00 145 11/17/16 20:00 98.3 145 16 110/66 90 11/17/16 19:00 Nasal Cannula 2.00 11/17/16 16:00 98.5 137 20 116/55 97 11/17/16 12:10 135 11/17/16 12:00 98.3 122 18 106/63 91 11/17/16 11:58 Simple Mask 2.00 11/17/16 11/17/16 11/18/16 14:59 22:59 06:59 Intake Total 480 ml 584 ml Output Total 500 ml 350 ml Balance -20 ml -350 ml 584 ml Intake Oral 480 ml IV Total 584 ml Output Urine Total 500 ml 350 ml # Voids 1 # Bowel Movements 1 . Laboratory Tests Test 11/17/16 11/18/16 04:05 06:20 White Blood Count 7.4 TH/MM3 7.2 TH/MM3 Red Blood Count 3.00 MIL/MM3 3.08 MIL/MM3 Hemoglobin 8.6 GM/DL 8.9 GM/DL Hematocrit 25.8 % 26.7 % Mean Corpuscular Volume 86.1 FL 86.5 FL Mean Corpuscular Hemoglobin 28.8 PG 29.0 PG Mean Corpuscular Hemoglobin 33.5 % 33.5 % Concent Red Cell Distribution Width 13.4 % 13.5 % Platelet Count 131 TH/MM3 131 TH/MM3 Mean Platelet Volume 10.1 FL 9.9 FL Neutrophils (%) (Auto) 75.7 % Lymphocytes (%) (Auto) 12.0 % Monocytes (%) (Auto) 9.6 % Eosinophils (%) (Auto) 2.4 % Basophils (%) (Auto) 0.3 % Neutrophils # (Auto) 5.4 TH/MM3 Lymphocytes # (Auto) 0.9 TH/MM3 Monocytes # (Auto) 0.7 TH/MM3 Eosinophils # (Auto) 0.2 TH/MM3 Basophils # (Auto) 0.0 TH/MM3 CBC Comment DIFF FINAL Differential Comment Laboratory Tests Test 11/17/16 11/17/16 11/18/16 04:05 15:12 06:20 Sodium Level 142 MEQ/L 142 MEQ/L 140 MEQ/L Potassium Level 2.9 MEQ/L 3.5 MEQ/L 3.3 MEQ/L Chloride Level 110 MEQ/L 109 MEQ/L 107 MEQ/L Carbon Dioxide Level 23.9 MEQ/L 24.9 MEQ/L 23.4 MEQ/L Anion Gap 8 MEQ/L 8 MEQ/L 10 MEQ/L Blood Urea Nitrogen 24 MG/DL 20 MG/DL 17 MG/DL Creatinine 0.76 MG/DL 0.89 MG/DL 0.63 MG/DL Estimat Glomerular Filtration 73 ML/MIN 61 ML/MIN 91 ML/MIN Rate Random Glucose 87 MG/DL 118 MG/DL 181 MG/DL Calcium Level 7.7 MG/DL 8.1 MG/DL 7.6 MG/DL Total Bilirubin 0.3 MG/DL Direct Bilirubin 0.2 MG/DL Indirect Bilirubin 0.1 MG/DL Aspartate Amino Transf 49 U/L (AST/SGOT) Alanine Aminotransferase 166 U/L (ALT/SGPT) Alkaline Phosphatase 152 U/L Total Protein 5.2 GM/DL Albumin 2.3 GM/DL Amylase Level 22 U/L Lipase 57 U/L Imaging Chest X-Ray 11/17/16 0000 Signed Impressions: Service Date/Time: Thursday, November 17, 2016 14:13 - CONCLUSION: Bilateral pleural effusions and bibasilar consolidation and/or compressive collapse. Haider Walker MD GI Procedure 11/13/16 0000 Signed Impressions: Service Date/Time: Sunday, November 13, 2016 08:58 - CONCLUSION: ERCP as above. Cristo Fields MD Cholangiopancreatography MRI 11/12/16 0000 Signed Impressions: Service Date/Time: Saturday, November 12, 2016 12:45 - CONCLUSION: Numerous gallstones with at least one filling defect in the distal common bile duct which is dilated to 11 mm. Bilateral lower lobe atelectasis. Bilateral breast augmentation. Cristo Fields MD Gall Bladder Ultrasound 11/11/16 0000 Signed Impressions: Service Date/Time: Friday, November 11, 2016 23:42 - CONCLUSION: 1. Multiple echogenic densities are seen within the gallbladder suggestive of stones and polyps. There is thickening of the gallbladder wall and there is a trace of fluid around the gallbladder. These findings can be demonstrated with either acute or chronic cholecystitis. Recommend correlation with patient's physical, clinical exam and laboratory values. 2. There is dilatation of the common bile duct at 10 mm. 3. 5 mm nonobstructing stone mid pole right kidney. 4. 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 Tre J. Siragusa, MD Physical Exam GENERAL: awake and alert, dyspneic at rest SKIN: Warm and dry. No generalized rash, no ecchymoses and no evidence of embolic lesions. HEAD: Atraumatic. Normocephalic. No temporal wasting, or tenderness. EYES: [place] conjunctiva. No petechia or hemorrhage. Pupils equal, round and reactive to light. Extraocular movements full and intact. No scleral icterus. No injection or drainage. EARS, NOSE AND THROAT: Nose without bleeding or purulent nasal discharge. No sinus tenderness. Mucous membranes pink and moist. No oral lesions noted. No exudate. No oral thrush. NECK: Trachea midline. Supple and not tender, no meningeal signs CARDIOVASCULAR: Regular rate and rhythm. No murmurs, rubs or gallops heard RESPIRATORY: Coarse BS bilaterally, decreased BS at bases C/W effusions, with decreased vocal fremitus, no E to A changes ABDOMEN: Distended, with hypoactive bowel sounds and mild tenderness. Incisions dry and no redness. Tympanitic on percussion, no guarding or rebound. EXTREMITIES: No clubbing, cyanosis, or edema. No joint effusion, has good ROM. No calf tenderness. Well perfused and warm. NEUROLOGICAL: Non-focal. PSYCHIATRIC: Normal affect, calm and cooperative. LINE: No evidence of infection Assessment & Plan Remarks IMPRESSION Bilateral effusions and atelectasis, infiltrates, likely fluid, ?aspiration, has been having N/V - though she is not coughing much but does complain of SOB S/P lap marilyn for acute cholecystitis S/P ERCP, sphincterotomy and stone extraction Nausea and vomiting, etiology? better RECOMMENDATION Continue Levaquin and Flagyl empiric coverage for PNA Consider diuresis for fluid removal, she has been (+) fluid balance Follow C/S Monitor progress D/W Isamar Galvan MD Nov 18, 2016 09:59
--- NOTE | 2016-11-18 14:18 | HHI.PR ---
Subjective Remarks pt improved heart rate stabilized k now normal Objective Vital Signs Date Time Temp Pulse Resp B/P Pulse Ox O2 Delivery O2 Flow Rate FiO2 11/18/16 13:43 101 11/18/16 12:22 92 Nasal Cannula 4.00 11/18/16 12:21 98.0 87 20 131/60 92 11/18/16 09:08 92 Nasal Cannula 4.00 11/18/16 08:09 97.4 81 18 127/63 93 11/18/16 04:00 98.1 76 16 109/54 92 11/18/16 01:10 94 Nasal Cannula 4.00 11/18/16 00:00 98.4 74 16 111/56 94 11/17/16 21:00 92 Nasal Cannula 3.00 11/17/16 20:00 145 11/17/16 20:00 98.3 145 16 110/66 90 11/17/16 19:00 Nasal Cannula 2.00 11/17/16 16:00 98.5 137 20 116/55 97 I/O 11/17/16 11/17/16 11/17/16 11/18/16 11/18/16 11/18/16 07:00 15:00 23:00 07:00 15:00 23:00 Intake Total 480 ml 584 ml Output Total 100 ml 500 ml 350 ml Balance -100 ml -20 ml -350 ml 584 ml Intake Oral 480 ml IV Total 584 ml Output Urine Total 100 ml 500 ml 350 ml # Voids 1 # Bowel Movements 1 Result Diagram: 11/18/1620 11/18/16 0620 Procedures ERCP on the Objective Remarks GENERAL: SKIN: Warm and dry. HEAD: Atraumatic. Normocephalic. EYES: Pupils equal and round. No scleral icterus. No injection or drainage. ENT: No nasal bleeding or discharge. Mucous membranes pink and moist. NECK: Trachea midline. No JVD. CARDIOVASCULAR: tachy was up to 180s but now 120 130 RESPIRATORY: No accessory muscle use. Clear to auscultation. Breath sounds equal bilaterally. GASTROINTESTINAL: Abdomen soft, tender, MUSCULOSKELETAL: Extremities without clubbing, cyanosis, or edema. No obvious deformities. NEUROLOGICAL: Awake and alert.anxious No obvious cranial nerve deficits. Motor grossly within normal limits. Normal speech. PSYCHIATRIC: Appropriate mood and affect; insight and judgment normal anxious. Assessment and Plan Problem List: (1) Gallbladder & bile duct stone with obstruction Status: Acute Plan: cholecystectomy performed (2) Sepsis Status: Acute Plan: consult ID (3) Diabetes Status: Acute Plan: accuchecks and coverage Assessment and Plan dc thyroid as this may inhance tachacardia k supplemented now 3.3 will increase k to bid floyd sheets per cardiology Anastacio Gurrola DO Nov 18, 2016 14:18
--- NOTE | 2016-11-18 14:40 | HHI.PR ---
Subjective Subjective Notes DAILY PROGRESS NOTE FOR SURGICAL ATTENDING, DR. MORRIS THOMAS Doing well tolerating diet Feels a little short of breath Objective Vitals/I&O Vital Signs Date Time Temp Pulse Resp B/P Pulse Ox O2 Delivery O2 Flow Rate FiO2 11/18/16 13:43 101 11/18/16 12:22 92 Nasal Cannula 4.00 11/18/16 12:21 98.0 20 131/60 Labs Laboratory Tests Test 11/17/16 11/18/16 15:12 06:20 Sodium Level 142 140 Potassium Level 3.5 3.3 Chloride Level 109 107 Carbon Dioxide Level 24.9 23.4 Anion Gap 8 10 Blood Urea Nitrogen 20 17 Creatinine 0.89 0.63 Estimat Glomerular Filtration 61 91 Rate Random Glucose 118 181 Calcium Level 8.1 7.6 Total Bilirubin 0.3 Direct Bilirubin 0.2 Indirect Bilirubin 0.1 Aspartate Amino Transf 49 (AST/SGOT) Alanine Aminotransferase 166 (ALT/SGPT) Alkaline Phosphatase 152 Total Protein 5.2 Albumin 2.3 Amylase Level 22 Lipase 57 White Blood Count 7.2 Red Blood Count 3.08 Hemoglobin 8.9 Hematocrit 26.7 Mean Corpuscular Volume 86.5 Mean Corpuscular Hemoglobin 29.0 Mean Corpuscular Hemoglobin 33.5 Concent Red Cell Distribution Width 13.5 Platelet Count 131 Mean Platelet Volume 9.9 Neutrophils (%) (Auto) 75.7 Lymphocytes (%) (Auto) 12.0 Monocytes (%) (Auto) 9.6 Eosinophils (%) (Auto) 2.4 Basophils (%) (Auto) 0.3 Neutrophils # (Auto) 5.4 Lymphocytes # (Auto) 0.9 Monocytes # (Auto) 0.7 Eosinophils # (Auto) 0.2 Basophils # (Auto) 0.0 CBC Comment DIFF FINAL Differential Comment Radiology L Last Impressions Chest X-Ray 11/17/16 0000 Signed Impressions: Service Date/Time: Thursday, November 17, 2016 14:13 - CONCLUSION: Bilateral pleural effusions and bibasilar consolidation and/or compressive collapse. Haider Walker MD GI Procedure 11/13/16 0000 Signed Impressions: Service Date/Time: Sunday, November 13, 2016 08:58 - CONCLUSION: ERCP as above. Cristo Fields MD Cholangiopancreatography MRI 11/12/16 0000 Signed Impressions: Service Date/Time: Saturday, November 12, 2016 12:45 - CONCLUSION: Numerous gallstones with at least one filling defect in the distal common bile duct which is dilated to 11 mm. Bilateral lower lobe atelectasis. Bilateral breast augmentation. Cristo Fields MD Gall Bladder Ultrasound 11/11/16 0000 Signed Impressions: Service Date/Time: Friday, November 11, 2016 23:42 - CONCLUSION: 1. Multiple echogenic densities are seen within the gallbladder suggestive of stones and polyps. There is thickening of the gallbladder wall and there is a trace of fluid around the gallbladder. These findings can be demonstrated with either acute or chronic cholecystitis. Recommend correlation with patient's physical, clinical exam and laboratory values. 2. There is dilatation of the common bile duct at 10 mm. 3. 5 mm nonobstructing stone mid pole right kidney. 4. 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 Tre Brantley MD Abdomen: Non-distended, Post-op tenderness Extremities: SCD's on, Other (lower extremity upper extremity edema) Narrative Exam No distress gluten-free food Tolerating diet A/P Problem List: (1) Common bile duct (CBD) obstruction (2) Acute cholecystitis due to biliary calculus (3) Gallstones and inflammation of gallbladder with obstruction (4) Blood glucose elevated (5) S/P ERCP (6) Gallbladder & bile duct stone with obstruction (7) Hypothyroidism (8) Paroxysmal a-fib (9) Diabetes (10) Status post laparoscopic cholecystectomy Assessment and Plan 81 year old female with acute cholecystitis; s/p ERCP with stone removal She is recovering from her surgery We'll stop IV fluids as she is a little positive Gentle diuretic Recheck potassium and magnesium after diuresis Problem Qualifiers (1) Gallstones and inflammation of gallbladder with obstruction: Qualified Code: K80.67 - Calculus of gallbladder and bile duct with acute on chronic cholecystitis, with obstruction (2) Gallbladder & bile duct stone with obstruction: (3) Hypothyroidism: Qualified Code: E03.9 - Acquired hypothyroidism Morris Thomas MD Nov 18, 2016 14:40
[2016-11-18] MEDS ORDERED: FUROSEMIDE 40 MG TAB PO ONE (14:45)
[2016-11-18] MEDS: DILTIAZEM 125 MG/NS 100 ML IV SCH ×2 (19:49)
[2016-11-18] MEDS: POTASSIUM CHLORIDE 20 MEQ CONTROLLED RELEASE TAB PO SCH (19:50)
[2016-11-19] VITALS (12 sets, daily range): BP systolic 116–141; BP diastolic 54–69; PULSE 80–129; RESP 18–24; TEMP 97.7–99; O2SAT 93–98
[2016-11-19] MEDS: CHLORHEXIDINE GLUCONATE 2 % 1 PACK (2 CLOTHS) TOP SCH (03:38)
[2016-11-19] MEDS: INSULIN ASPART SUPPLEMENTAL SCALE SQ SCH ×6 (03:54→23:44)
[2016-11-19 04:13] LABS: BICARBONATE 29.6 MEQ/L (21.0-32.0); MAGNESIUM 1.4 MG/DL (1.5-2.5); POTASSIUM 3.1 MEQ/L (3.5-5.1)
[2016-11-19] MEDS: LEVOTHYROXINE SODIUM 125 MCG TAB PO SCH (05:38)
[2016-11-19] MEDS: RESP: ALBUTEROL 2.5 MG/IPRATROPIUM 0.5 MG NEB (PRN) INH (08:20)
[2016-11-19] MEDS ORDERED: MAGNESIUM SULFATE 2 GM/NS 100 ML IV SCH ×2 (09:00)
[2016-11-19] MEDS ORDERED: MAGNESIUM SULFATE 4 GM PREMIX 100 ML IV ONE (09:00)
[2016-11-19] MEDS: INSULIN DETEMIR 100 UNITS/ML VIAL SQ SCH (09:18)
[2016-11-19] MEDS: DILTIAZEM 125 MG/NS 100 ML IV SCH ×4 (09:21→18:40)
[2016-11-19] MEDS: FAMOTIDINE 20 MG TAB PO SCH ×2 (09:22→22:21)
[2016-11-19] MEDS: DOCUSATE SODIUM 50 MG/SENNA 8.6 MG TAB PO SCH ×2 (09:22→22:21)
[2016-11-19] MEDS: POTASSIUM CHLORIDE 20 MEQ CONTROLLED RELEASE TAB PO SCH ×2 (09:22→22:21)
[2016-11-19] MEDS: SODIUM CHLORIDE 0.9% FLUSH 10 ML FLUSH SCH ×2 (09:23→21:00)
--- NOTE | 2016-11-19 09:23 | EKG ---
Date Performed: 11/17/2016 Time Performed: 17:13:42 PTAGE: 81 years EKG: ATRIAL FIBRILLATION WITH RAPID VENTRICULAR RESPONSE NONSPECIFIC ST & T-WAVE ABNORMALITY ABN ORMAL ECG PREVIOUS TRACING : 11/13/2016 08.42 Compared to previous tracing, patient is now in atrial fibr illation with rapid ventricular response. Consider anterolateral ischemia. DOCTOR: Robin Arriola Interpretating Date/Time 11/19/2016 09:23:21
--- NOTE | 2016-11-19 09:39 | HHI.PR ---
Subjective Remarks Patient alert and oriented. Denies any CP or SOB. Reports that she is starting to feel better Objective Vital Signs Date Time Temp Pulse Resp B/P Pulse Ox O2 Delivery O2 Flow Rate FiO2 11/19/16 08:21 96 2.00 11/19/16 08:00 97.7 96 24 123/61 93 11/19/16 04:00 98.9 88 20 126/69 93 11/19/16 03:12 93 Nasal Cannula 4.00 11/19/16 00:00 99.0 89 20 141/65 93 11/18/16 20:40 95 11/18/16 20:00 98.8 98 20 131/63 93 11/18/16 20:00 93 Nasal Cannula 4.00 11/18/16 16:09 98.3 89 20 136/63 96 11/18/16 15:53 96 Nasal Cannula 4.00 11/18/16 13:43 101 11/18/16 12:22 92 Nasal Cannula 4.00 11/18/16 12:21 98.0 87 20 131/60 92 I/O 11/18/16 11/18/16 11/18/16 11/19/16 11/19/16 11/19/16 06:59 14:59 22:59 06:59 14:59 22:59 Intake Total 584 ml 480 ml 240 ml 200 ml Output Total 1100 ml 300 ml 1800 ml Balance 584 ml -620 ml -60 ml -1600 ml Intake Oral 480 ml 200 ml 120 ml IV Total 584 ml 40 ml 80 ml Output Urine Total 1100 ml 300 ml 1800 ml # Voids 1 # Bowel Movements 0 0 0 Result Diagram: 11/18/16 0620 11/19/16 0323 Procedures ERCP on the Objective Remarks GENERAL: Alert and cooperative SKIN: Warm and dry. HEAD: Normocephalic. EYES: No scleral icterus. No injection or drainage. NECK: Supple, trachea midline. No JVD or lymphadenopathy. CARDIOVASCULAR: Regular rate and rhythm without murmurs, gallops, or rubs. RESPIRATORY: Breath sounds equal bilaterally. No accessory muscle use. GASTROINTESTINAL: Abdomen soft, non-tender, nondistended. MUSCULOSKELETAL: No cyanosis, or edema. BACK: Nontender without obvious deformity. No CVA tenderness. Medications and IVs Current Medications Medications (Trade) Dose Ordered Sig/Herbert Route Start Time Stop Time Status Last Admin (NS Flush) 2 ml UNSCH PRN .XX 11/12/16 03:15 11/12/16 19:43 (NS Flush) 2 ml BID .XX 11/12/16 09:00 11/18/16 08:29 (Tylenol) 650 mg Q6H PRN PO 11/12/16 03:15 (Zofran Inj) 4 mg Q6H PRN IV 11/12/16 03:15 11/17/16 16:26 (Ambien) 5 mg HS PRN PO 11/12/16 03:15 11/18/16 00:43 (Heparin Inj) 5,000 units Q12H SQ 11/12/16 06:00 Hold 11/13/16 04:44 Miscellaneous Information 1 Q361D XX 11/12/16 03:15 11/12/16 03:15 (Chlorhexidine 2% Cloth) Taper DAILY@04 TOP 11/12/16 04:00 11/08/17 03:59 11/15/16 04:00 (Chlorhexidine 2% Cloth) 3 pack UNSCH PRN TOP 11/12/16 03:15 (Adele-Colace) 1 tab BID PO 11/12/16 09:00 11/17/16 09:04 (Milk Of Magnesia Liq) 30 ml Q12H PRN PO 11/12/16 03:15 (Senokot) 17.2 mg Q12H PRN PO 11/12/16 03:15 (Dulcolax Supp) 10 mg DAILY PRN RECTAL 11/12/16 03:15 (Lactulose Liq) 30 ml DAILY PRN PO 11/12/16 03:15 (NovoLOG SUPPLEMENTAL SCALE) 1 Q4HR SQ 11/13/16 12:00 11/19/16 03:54 (Phenergan Supp) 25 mg Q6H PRN RECTAL 11/13/16 14:45 11/15/16 20:37 (Synthroid) 125 mcg DAILY@0600 PO 11/16/16 06:00 11/19/16 05:38 (Levemir Inj) 10 units DAILY SQ 11/16/16 11:00 11/18/16 08:25 (Pepcid) 10 mg BID PO 11/16/16 21:00 11/18/16 19:50 Miscellaneous 1 ea 1 ea UNSCH PRN OTHER 11/16/16 15:45 (Cardizem Inj/NS Inj) 125 ml @ 0 mls/hr TITRATE IV 11/17/16 08:30 11/18/16 19:49 (KCl) 20 meq BID PO 11/18/16 21:00 11/18/16 19:50 Potassium Chloride 40 meq 40 meq ONCE ONCE PO 11/19/16 11:00 11/19/16 11:01 (Magnesium Sulfate 1 Gm Premix) 100 ml @ 100 mls/hr Q1H IV 11/19/16 10:00 11/19/16 10:01 Assessment and Plan Problem List: (1) Acute cholecystitis due to biliary calculus Status: Acute Plan: ERCP and cholecystectomy done. Incision sites healing well (2) Hypothyroidism Status: Acute Plan: Replacement discontinued per Dr. Gurrola (3) Diabetes Status: Acute Plan: BS elevated range overnight 170-202. Levemir increased. Diabetic diet. (4) Paroxysmal a-fib Status: Acute Plan: AFIB noted during rounding. On cardizem gtt. Increased to 15 mg/hr. Dr Nava consulted and managing. Will monitor Albuterol changed to Xopenex (5) Hypokalemia Status: Acute Plan: Potassium at 3.1 on regular replacement. 40 meq KCL given. Repeat at 1700 (6) Hypomagnesemia Status: Acute Plan: Magnesium 1.3. Replacement ordered with recheck in AM Assessment and Plan Assessment and plan discussed with Dr. Gurrola Discussed Condition With Nursing Physician Attestation I and the BLANKET INSPECTOR have both examined this patient and reviewed this note and I agree with these findings and plan of care. Anastacio Gurrola DO Problem Qualifiers (1) Hypothyroidism: Qualified Code: E03.9 - Acquired hypothyroidism Charlotte Davis BLANKET INSPECTOR Nov 19, 2016 09:39
[2016-11-19] MEDS ORDERED: MAGNESIUM SULFATE 1 GM PREMIX 100 ML IV SCH (10:00)
[2016-11-19] MEDS: RESP: IPRATROPIUM 0.5 MG/2.5 ML NEB NEB SCH ×2 (10:00→16:00)
--- NOTE | 2016-11-19 10:15 | HHI.IDPN ---
Subjective Subjective Remarks Patient is an 81-year-old female, presented to the hospital complaining of right upper quadrant pain. Patient has had previous episode of gallbladder problem and has known cholelithiasis. Actually being evaluated for surgery, but her symptoms improved. She started having symptoms again about a week or so ago and they were intermittent. On the day of admission the pain was very severe and more persistent, and she also had vomiting. She presented to the hospital for further evaluation and treatment. She denies any fever although she's been having some chills. Ultrasound of the gallbladder showed wall thickening of the gallbladder, and some pericholecystic fluid. Her LFTs were elevated. Her initial WBC was low at 3.7. Patient was admitted as acute cholecystitis. She underwent ERCP and had sphincterotomy, and stone extraction. This was done November 13. On November 15 she underwent laparoscopic cholecystectomy. Patient had been getting IV Zosyn, and the antibiotic was stopped yesterday. Patient apparently has been having nausea and vomiting since postop. She's also been having shortness of breath. She is not coughing or bringing up any phlegm. She's had bowel movement. She is voiding without any problem. She had a Belcher catheter in place and that was removed yesterday. Today the patient developed tachycardia, and infectious disease consultation has been requested to evaluate for possible sepsis. Patient states her breathing is better today than from previous stays. Notes reviewed Temps ok Breathing looks better Got diuretic yesterday with good response Some nausea, no vomiting Tolerating diet No BM today, had one yesterday Lines PIV Past Medical History Diabetes Hypothyroidism History of kidney stones Previous episode of cholecystitis, and gallstone Past Surgical History Recent laparoscopic cholecystectomy Recent ERCP and sphincterotomy, and stone extraction Allergies: Coded Allergies: No Known Allergies (Unverified , 11/11/16) Objective . Vital Signs Date Time Temp Pulse Resp B/P Pulse Ox O2 Delivery O2 Flow Rate FiO2 11/19/16 08:21 96 2.00 11/19/16 08:00 97.7 96 24 123/61 93 11/19/16 04:00 98.9 88 20 126/69 93 11/19/16 03:12 93 Nasal Cannula 4.00 11/19/16 00:00 99.0 89 20 141/65 93 11/18/16 20:40 95 11/18/16 20:00 98.8 98 20 131/63 93 11/18/16 20:00 93 Nasal Cannula 4.00 11/18/16 16:09 98.3 89 20 136/63 96 11/18/16 15:53 96 Nasal Cannula 4.00 11/18/16 13:43 101 11/18/16 12:22 92 Nasal Cannula 4.00 11/18/16 12:21 98.0 87 20 131/60 92 11/18/16 11/18/16 11/19/16 14:59 22:59 06:59 Intake Total 480 ml 240 ml 200 ml Output Total 1100 ml 300 ml 1800 ml Balance -620 ml -60 ml -1600 ml Intake Oral 480 ml 200 ml 120 ml IV Total 40 ml 80 ml Output Urine Total 1100 ml 300 ml 1800 ml # Bowel Movements 0 0 0 . Laboratory Tests Test 11/18/16 06:20 White Blood Count 7.2 TH/MM3 Red Blood Count 3.08 MIL/MM3 Hemoglobin 8.9 GM/DL Hematocrit 26.7 % Mean Corpuscular Volume 86.5 FL Mean Corpuscular Hemoglobin 29.0 PG Mean Corpuscular Hemoglobin 33.5 % Concent Red Cell Distribution Width 13.5 % Platelet Count 131 TH/MM3 Mean Platelet Volume 9.9 FL Neutrophils (%) (Auto) 75.7 % Lymphocytes (%) (Auto) 12.0 % Monocytes (%) (Auto) 9.6 % Eosinophils (%) (Auto) 2.4 % Basophils (%) (Auto) 0.3 % Neutrophils # (Auto) 5.4 TH/MM3 Lymphocytes # (Auto) 0.9 TH/MM3 Monocytes # (Auto) 0.7 TH/MM3 Eosinophils # (Auto) 0.2 TH/MM3 Basophils # (Auto) 0.0 TH/MM3 CBC Comment DIFF FINAL Differential Comment Laboratory Tests Test 11/17/16 11/18/16 11/19/16 15:12 06:20 03:23 Sodium Level 142 MEQ/L 140 MEQ/L 142 MEQ/L Potassium Level 3.5 MEQ/L 3.3 MEQ/L 3.1 MEQ/L Chloride Level 109 MEQ/L 107 MEQ/L 105 MEQ/L Carbon Dioxide Level 24.9 MEQ/L 23.4 MEQ/L 29.6 MEQ/L Anion Gap 8 MEQ/L 10 MEQ/L 7 MEQ/L Blood Urea Nitrogen 20 MG/DL 17 MG/DL 11 MG/DL Creatinine 0.89 MG/DL 0.63 MG/DL 0.76 MG/DL Estimat Glomerular Filtration 61 ML/MIN 91 ML/MIN 73 ML/MIN Rate Random Glucose 118 MG/DL 181 MG/DL 156 MG/DL Calcium Level 8.1 MG/DL 7.6 MG/DL 8.2 MG/DL Total Bilirubin 0.3 MG/DL Direct Bilirubin 0.2 MG/DL Indirect Bilirubin 0.1 MG/DL Aspartate Amino Transf 49 U/L (AST/SGOT) Alanine Aminotransferase 166 U/L (ALT/SGPT) Alkaline Phosphatase 152 U/L Total Protein 5.2 GM/DL Albumin 2.3 GM/DL Amylase Level 22 U/L Lipase 57 U/L Magnesium Level 1.4 MG/DL Prealbumin 12 MG/DL Imaging Chest X-Ray 11/17/16 0000 Signed Impressions: Service Date/Time: Thursday, November 17, 2016 14:13 - CONCLUSION: Bilateral pleural effusions and bibasilar consolidation and/or compressive collapse. Haider Walker MD GI Procedure 11/13/16 0000 Signed Impressions: Service Date/Time: Sunday, November 13, 2016 08:58 - CONCLUSION: ERCP as above. Cristo Fields MD Cholangiopancreatography MRI 11/12/16 0000 Signed Impressions: Service Date/Time: Saturday, November 12, 2016 12:45 - CONCLUSION: Numerous gallstones with at least one filling defect in the distal common bile duct which is dilated to 11 mm. Bilateral lower lobe atelectasis. Bilateral breast augmentation. Cristo Fields MD Gall Bladder Ultrasound 11/11/16 0000 Signed Impressions: Service Date/Time: Friday, November 11, 2016 23:42 - CONCLUSION: 1. Multiple echogenic densities are seen within the gallbladder suggestive of stones and polyps. There is thickening of the gallbladder wall and there is a trace of fluid around the gallbladder. These findings can be demonstrated with either acute or chronic cholecystitis. Recommend correlation with patient's physical, clinical exam and laboratory values. 2. There is dilatation of the common bile duct at 10 mm. 3. 5 mm nonobstructing stone mid pole right kidney. 4. 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 Tre Brantley MD Physical Exam GENERAL: awake and alert, NAD SKIN: Warm and dry. No generalized rash HEAD: Atraumatic. Normocephalic. No temporal wasting, or tenderness. EYES: Belle conjunctiva. No petechia or hemorrhage. Pupils equal, round and reactive to light. No scleral icterus. No injection or drainage. EARS, NOSE AND THROAT: Nose without bleeding or purulent nasal discharge. . Mucous membranes pink and moist. No oral lesions noted. NECK: Trachea midline. Supple and not tender, no meningeal signs CARDIOVASCULAR: Regular rate and rhythm. No murmurs, rubs or gallops heard RESPIRATORY: Coarse BS bilaterally, decreased BS at bases C/W effusions, with decreased vocal fremitus, no E to A changes ABDOMEN: Softer, with very mild tenderness. Incisions dry and no redness. Tympanitic on percussion, no guarding or rebound. EXTREMITIES: No clubbing, cyanosis, or edema. No joint effusion, has good ROM. No calf tenderness. Well perfused and warm. NEUROLOGICAL: Non-focal. PSYCHIATRIC: Normal affect, calm and cooperative. LINE: No evidence of infection Assessment & Plan Remarks IMPRESSION Bilateral effusions and atelectasis, infiltrates, likely fluid, ?aspiration, has been having N/V - though she is not coughing much but does complain of SOB - better after diuresis S/P lap marilyn for acute cholecystitis S/P ERCP, sphincterotomy and stone extraction Nausea and vomiting, etiology? better RECOMMENDATION Seems stable after Abx has been D/C Clinically doing well from ID standpoint I will be available prn Please call if with any new ID issue or question D/W Isamar Galvan MD Nov 19, 2016 10:14
[2016-11-19] MEDS ORDERED: POTASSIUM CHLORIDE 20 MEQ CONTROLLED RELEASE TAB PO ONE (11:00)
--- NOTE | 2016-11-19 14:50 | HHI.PR ---
Subjective Subjective Notes DAILY PROGRESS NOTE FOR SURGICAL ATTENDING, DR. MORRIS THOMAS Up to chair [employer] nauseous this morning; thinks its because of the potassium pills Objective Vitals/I&O Vital Signs Date Time Temp Pulse Resp B/P Pulse Ox O2 Delivery O2 Flow Rate FiO2 11/19/16 08:21 96 2.00 11/19/16 08:00 97.7 96 24 123/61 11/19/16 03:12 Nasal Cannula Labs Laboratory Tests Test 11/19/16 03:23 Sodium Level 142 Potassium Level 3.1 Chloride Level 105 Carbon Dioxide Level 29.6 Anion Gap 7 Blood Urea Nitrogen 11 Creatinine 0.76 Estimat Glomerular Filtration 73 Rate Random Glucose 156 Calcium Level 8.2 Magnesium Level 1.4 Prealbumin 12 Radiology L Last Impressions Chest X-Ray 11/17/16 0000 Signed Impressions: Service Date/Time: Thursday, November 17, 2016 14:13 - CONCLUSION: Bilateral pleural effusions and bibasilar consolidation and/or compressive collapse. Haider Walker MD GI Procedure 11/13/16 0000 Signed Impressions: Service Date/Time: Sunday, November 13, 2016 08:58 - CONCLUSION: ERCP as above. Cristo Fields MD Cholangiopancreatography MRI 11/12/16 0000 Signed Impressions: Service Date/Time: Saturday, November 12, 2016 12:45 - CONCLUSION: Numerous gallstones with at least one filling defect in the distal common bile duct which is dilated to 11 mm. Bilateral lower lobe atelectasis. Bilateral breast augmentation. Cristo Fields MD Gall Bladder Ultrasound 11/11/16 0000 Signed Impressions: Service Date/Time: Friday, November 11, 2016 23:42 - CONCLUSION: 1. Multiple echogenic densities are seen within the gallbladder suggestive of stones and polyps. There is thickening of the gallbladder wall and there is a trace of fluid around the gallbladder. These findings can be demonstrated with either acute or chronic cholecystitis. Recommend correlation with patient's physical, clinical exam and laboratory values. 2. There is dilatation of the common bile duct at 10 mm. 3. 5 mm nonobstructing stone mid pole right kidney. 4. 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 Tre Brantley MD Cardiovascular: Irregular (tachycardic) Abdomen: Other (lap sites c/d/i; minimal drainage on dressing ) Extremities: No edema A/P Problem List: (1) Common bile duct (CBD) obstruction (2) Acute cholecystitis due to biliary calculus (3) Gallstones and inflammation of gallbladder with obstruction (4) Blood glucose elevated (5) S/P ERCP (6) Gallbladder & bile duct stone with obstruction (7) Hypothyroidism (8) Paroxysmal a-fib (9) Diabetes (10) Status post laparoscopic cholecystectomy Assessment and Plan 81 year old female with acute cholecystitis; s/p ERCP with stone removal -POD lap marilyn -Tolerating heart healthy diet -Replace K and Mag today -OOB to chair -Okay to restart anticoagulation from GS standpoint -Remains on Cardizen drip; wean as tolerated Attending Statement NOTE FOR SURGICAL ATTENDING, DR. MORRIS THOMAS I agree with above assessment and plan. The following services were provided during this hospital visit: Chart data review, vital sign assessments/reviewing monitor data Review of consultations notes if present. Medication orders/review and/or management Ordering and/or reviewing lab tests Ordering and/or interpreting/reviewing x-rays and/or diagnostic studies Care of the patient and discussion of the patient with the care team Documentation time To help prompt me to consider important information that might be impacting today's encounter and assessment, information from prior notes written by myself or my colleagues may have been "brought forward/copy and pasted" into today's note. Problem Qualifiers (1) Gallstones and inflammation of gallbladder with obstruction: Qualified Code: K80.67 - Calculus of gallbladder and bile duct with acute on chronic cholecystitis, with obstruction (2) Gallbladder & bile duct stone with obstruction: (3) Hypothyroidism: Qualified Code: E03.9 - Acquired hypothyroidism Nirali Patel Nov 19, 2016 14:50 Morris Thomas MD Nov 20, 2016 07:24
--- NOTE | 2016-11-19 15:30 | PD.CARD.PN ---
Subjective Subjective Remarks No CP or SOB, mild nausea this AM Objective Medications Current Medications Medications (Trade) Dose Ordered Sig/Herbert Route Start Time Stop Time Status Last Admin (NS Flush) 2 ml UNSCH PRN .XX 11/12/16 03:15 11/12/16 19:43 (NS Flush) 2 ml BID .XX 11/12/16 09:00 11/19/16 09:23 (Tylenol) 650 mg Q6H PRN PO 11/12/16 03:15 (Zofran Inj) 4 mg Q6H PRN IV 11/12/16 03:15 11/17/16 16:26 (Ambien) 5 mg HS PRN PO 11/12/16 03:15 11/18/16 00:43 (Heparin Inj) 5,000 units Q12H SQ 11/12/16 06:00 Hold 11/13/16 04:44 Miscellaneous Information 1 Q361D XX 11/12/16 03:15 11/12/16 03:15 (Chlorhexidine 2% Cloth) Taper DAILY@04 TOP 11/12/16 04:00 11/08/17 03:59 11/15/16 04:00 (Chlorhexidine 2% Cloth) 3 pack UNSCH PRN TOP 11/12/16 03:15 (Adele-Colace) 1 tab BID PO 11/12/16 09:00 11/19/16 09:22 (Milk Of Magnesia Liq) 30 ml Q12H PRN PO 11/12/16 03:15 (Senokot) 17.2 mg Q12H PRN PO 11/12/16 03:15 (Dulcolax Supp) 10 mg DAILY PRN RECTAL 11/12/16 03:15 (Lactulose Liq) 30 ml DAILY PRN PO 11/12/16 03:15 (NovoLOG SUPPLEMENTAL SCALE) 1 Q4HR SQ 11/13/16 12:00 11/19/16 12:46 (Phenergan Supp) 25 mg Q6H PRN RECTAL 11/13/16 14:45 11/15/16 20:37 (Synthroid) 125 mcg DAILY@0600 PO 11/16/16 06:00 11/19/16 05:38 (Pepcid) 10 mg BID PO 11/16/16 21:00 11/19/16 09:22 Miscellaneous 1 ea 1 ea UNSCH PRN OTHER 11/16/16 15:45 (Cardizem Inj/NS Inj) 125 ml @ 0 mls/hr TITRATE IV 11/17/16 08:30 11/19/16 09:21 (KCl) 20 meq BID PO 11/18/16 21:00 11/19/16 09:22 (Levemir Inj) 15 units DAILY SQ 11/20/16 09:00 Vital Signs / I&O Vital Signs Date Time Temp Pulse Resp B/P Pulse Ox O2 Delivery O2 Flow Rate FiO2 11/19/16 12:00 98.3 129 22 130/54 94 11/19/16 08:21 96 2.00 11/19/16 08:00 97.7 96 24 123/61 93 11/19/16 04:00 98.9 88 20 126/69 93 11/19/16 03:12 93 Nasal Cannula 4.00 11/19/16 00:00 99.0 89 20 141/65 93 11/18/16 20:40 95 11/18/16 20:00 98.8 98 20 131/63 93 11/18/16 20:00 93 Nasal Cannula 4.00 11/18/16 16:09 98.3 89 20 136/63 96 11/18/16 15:53 96 Nasal Cannula 4.00 I/O 11/18/16 11/18/16 11/18/16 11/19/16 11/19/16 11/19/16 07:00 15:00 23:00 07:00 15:00 23:00 Intake Total 584 ml 480 ml 240 ml 200 ml Output Total 1100 ml 1100 ml 1000 ml Balance 584 ml -620 ml -860 ml -800 ml Intake Oral 480 ml 200 ml 120 ml IV Total 584 ml 40 ml 80 ml Output Urine Total 1100 ml 1100 ml 1000 ml # Voids 1 # Bowel Movements 0 0 0 Physical Exam GENERAL: In NAD SKIN: Warm and dry. HEAD: Normocephalic. EYES: No scleral icterus. No injection or drainage. NECK: Supple, trachea midline. No JVD or lymphadenopathy. CARDIOVASCULAR: Regular rate and rhythm without murmurs, gallops, or rubs. RESPIRATORY: Breath sounds equal bilaterally. No accessory muscle use. GASTROINTESTINAL: Abdomen soft, nondistended. MUSCULOSKELETAL: No cyanosis, or edema. . Laboratory Laboratory Tests Test 11/19/16 03:23 Sodium Level 142 MEQ/L Potassium Level 3.1 MEQ/L Chloride Level 105 MEQ/L Carbon Dioxide Level 29.6 MEQ/L Anion Gap 7 MEQ/L Blood Urea Nitrogen 11 MG/DL Creatinine 0.76 MG/DL Estimat Glomerular Filtration 73 ML/MIN Rate Random Glucose 156 MG/DL Calcium Level 8.2 MG/DL Magnesium Level 1.4 MG/DL Prealbumin 12 MG/DL Imaging Last Impressions Chest X-Ray 11/17/16 0000 Signed Impressions: Service Date/Time: Thursday, November 17, 2016 14:13 - CONCLUSION: Bilateral pleural effusions and bibasilar consolidation and/or compressive collapse. Haider Walker MD GI Procedure 11/13/16 0000 Signed Impressions: Service Date/Time: Sunday, November 13, 2016 08:58 - CONCLUSION: ERCP as above. Cristo Fields MD Cholangiopancreatography MRI 11/12/16 0000 Signed Impressions: Service Date/Time: Saturday, November 12, 2016 12:45 - CONCLUSION: Numerous gallstones with at least one filling defect in the distal common bile duct which is dilated to 11 mm. Bilateral lower lobe atelectasis. Bilateral breast augmentation. Cristo Fields MD Gall Bladder Ultrasound 11/11/16 0000 Signed Impressions: Service Date/Time: Friday, November 11, 2016 23:42 - CONCLUSION: 1. Multiple echogenic densities are seen within the gallbladder suggestive of stones and polyps. There is thickening of the gallbladder wall and there is a trace of fluid around the gallbladder. These findings can be demonstrated with either acute or chronic cholecystitis. Recommend correlation with patient's physical, clinical exam and laboratory values. 2. There is dilatation of the common bile duct at 10 mm. 3. 5 mm nonobstructing stone mid pole right kidney. 4. 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 Tre Brantley MD Assessment and Plan Problem List: (1) Paroxysmal a-fib (2) CAD (coronary artery disease) (3) Diabetes (4) Hypothyroidism (5) Gallbladder & bile duct stone with obstruction (6) Acute cholecystitis due to biliary calculus Assessment and Plan The patient stays in [facility]. No angina or CHF. Replace K. Recommend to start anticoagulation with Eliquis 5 mg BID for paroxysmal AF. Anticipate discharge soon. Will schedule cardiology f/u in our office after discharge. Problem Qualifiers (1) Hypothyroidism: Qualified Code: E03.9 - Acquired hypothyroidism (2) Gallbladder & bile duct stone with obstruction: Michael Nava MD Nov 19, 2016 15:30
[2016-11-20] VITALS (9 sets, daily range): BP systolic 115–141; BP diastolic 57–75; PULSE 86–109; RESP 18–24; TEMP 98–99.5; O2SAT 92–97
[2016-11-20] MEDS: CHLORHEXIDINE GLUCONATE 2 % 1 PACK (2 CLOTHS) TOP SCH (03:23)
[2016-11-20] MEDS: DILTIAZEM 125 MG/NS 100 ML IV SCH ×4 (03:24→14:13)
[2016-11-20] MEDS: INSULIN ASPART SUPPLEMENTAL SCALE SQ SCH ×5 (04:00→21:36)
[2016-11-20] MEDS: RESP: IPRATROPIUM 0.5 MG/2.5 ML NEB NEB SCH ×3 (04:00→15:28)
[2016-11-20] MEDS: LEVOTHYROXINE SODIUM 125 MCG TAB PO SCH (06:18)
[2016-11-20] MEDS: INSULIN DETEMIR 100 UNITS/ML VIAL SQ SCH (08:24)
[2016-11-20 08:25] LABS: HEMATOCRIT 28.9 % (35.0-46.0); MEAN CELL VOLUME 85.7 FL (80.0-100.0); MEAN CORPUSCULAR HEMOGLOBIN 29.1 PG (27.0-34.0); MEAN CORPUSCULAR HGB CONC 33.9 % (32.0-36.0); PLATELET COUNT 151 TH/MM3 (150-450); RED BLOOD COUNT 3.38 MIL/MM3 (4.00-5.30); RED CELL DISTRIBUTION WIDTH 13.4 % (11.6-17.2); REVIEW FLAG FINAL; WHITE BLOOD COUNT 13.9 TH/MM3 (4.0-11.0)
[2016-11-20] MEDS: DOCUSATE SODIUM 50 MG/SENNA 8.6 MG TAB PO SCH ×2 (08:30→21:26)
[2016-11-20] MEDS: POTASSIUM CHLORIDE 20 MEQ CONTROLLED RELEASE TAB PO SCH ×2 (08:31→21:26)
[2016-11-20] MEDS: FAMOTIDINE 20 MG TAB PO SCH (08:31)
[2016-11-20 08:51] LABS: MAGNESIUM 1.6 MG/DL (1.5-2.5); POTASSIUM 3.5 MEQ/L (3.5-5.1)
[2016-11-20] MEDS: SODIUM CHLORIDE 0.9% FLUSH 10 ML FLUSH SCH ×2 (09:00→21:24)
--- NOTE | 2016-11-20 10:01 | HHI.PR ---
Subjective Remarks Patient alert and oriented. Denies any CP. Reports that she is still feeling slightly SOB Objective Vital Signs Date Time Temp Pulse Resp B/P Pulse Ox O2 Delivery O2 Flow Rate FiO2 11/20/16 08:30 92 Nasal Cannula 4.00 11/20/16 08:00 98.0 93 22 132/75 92 Manual Cuff/Auscultation Automatic Cuff 11/20/16 04:00 86 11/20/16 04:00 99.3 92 19 141/63 96 11/20/16 04:00 Nasal Cannula 4.00 11/20/16 00:32 Nasal Cannula 4.00 11/20/16 00:00 98.2 86 18 129/57 95 11/19/16 23:57 92 11/19/16 20:15 80 11/19/16 20:00 Nasal Cannula 4.00 11/19/16 20:00 99.0 85 18 124/58 98 11/19/16 16:44 96 Nasal Cannula 4.00 11/19/16 16:00 98.2 118 20 116/56 93 11/19/16 12:00 98.3 129 22 130/54 94 I/O 11/19/16 11/19/16 11/19/16 11/20/16 11/20/16 11/20/16 07:00 15:00 23:00 07:00 15:00 23:00 Intake Total 200 ml 719 ml 367 ml 388 ml Output Total 1000 ml 1000 ml 200 ml 400 ml Balance -800 ml -281 ml 167 ml -12 ml Intake Oral 120 ml 480 ml 240 ml 260 ml IV Total 80 ml 239 ml 127 ml 128 ml Output Urine Total 1000 ml 1000 ml 200 ml 400 ml # Bowel Movements 0 1 0 0 Result Diagram: 11/20/1632 11/20/16 0732 Procedures ERCP on the Objective Remarks GENERAL: Alert and cooperative SKIN: Warm and dry. Incision site healing well HEAD: Normocephalic. EYES: No scleral icterus. No injection or drainage. NECK: Supple, trachea midline. No JVD or lymphadenopathy. CARDIOVASCULAR: Regular rate and rhythm without murmurs, gallops, or rubs. RESPIRATORY: Breath sounds equal bilaterally. No accessory muscle use. GASTROINTESTINAL: Abdomen soft, non-tender, nondistended. MUSCULOSKELETAL: No cyanosis, or edema. BACK: Nontender without obvious deformity. No CVA tenderness. Medications and IVs Current Medications Medications (Trade) Dose Ordered Sig/Herbert Route Start Time Stop Time Status Last Admin (NS Flush) 2 ml UNSCH PRN .XX 11/12/16 03:15 11/12/16 19:43 (NS Flush) 2 ml BID .XX 11/12/16 09:00 11/19/16 21:00 (Tylenol) 650 mg Q6H PRN PO 11/12/16 03:15 11/19/16 18:46 (Zofran Inj) 4 mg Q6H PRN IV 11/12/16 03:15 11/17/16 16:26 (Ambien) 5 mg HS PRN PO 11/12/16 03:15 11/18/16 00:43 (Heparin Inj) 5,000 units Q12H SQ 11/12/16 06:00 Hold 11/13/16 04:44 Miscellaneous Information 1 Q361D XX 11/12/16 03:15 11/12/16 03:15 (Chlorhexidine 2% Cloth) Taper DAILY@04 TOP 11/12/16 04:00 11/08/17 03:59 11/15/16 04:00 (Chlorhexidine 2% Cloth) 3 pack UNSCH PRN TOP 11/12/16 03:15 (Adele-Colace) 1 tab BID PO 11/12/16 09:00 11/20/16 08:30 (Milk Of Magnesia Liq) 30 ml Q12H PRN PO 11/12/16 03:15 (Senokot) 17.2 mg Q12H PRN PO 11/12/16 03:15 (Dulcolax Supp) 10 mg DAILY PRN RECTAL 11/12/16 03:15 (Lactulose Liq) 30 ml DAILY PRN PO 11/12/16 03:15 (NovoLOG SUPPLEMENTAL SCALE) 1 Q4HR SQ 11/13/16 12:00 11/20/16 08:25 (Phenergan Supp) 25 mg Q6H PRN RECTAL 11/13/16 14:45 11/15/16 20:37 (Synthroid) 125 mcg DAILY@0600 PO 11/16/16 06:00 11/20/16 06:18 Miscellaneous 1 ea 1 ea UNSCH PRN OTHER 11/16/16 15:45 (Cardizem Inj/NS Inj) 125 ml @ 0 mls/hr TITRATE IV 11/17/16 08:30 11/20/16 03:24 (KCl) 20 meq BID PO 11/18/16 21:00 11/20/16 08:31 (Levemir Inj) 15 units DAILY SQ 11/20/16 09:00 11/20/16 08:24 (Eliquis) 5 mg BID PO 11/20/16 09:00 (Protonix) 40 mg DAILY PO 11/20/16 09:15 Furosemide 20 mg 20 mg BID@09,18 IV PUSH 11/20/16 18:00 (Magnesium Sulfate 1 Gm Premix) 100 ml @ 100 mls/hr Q1H IV 11/20/16 10:00 11/20/16 11:59 Assessment and Plan Problem List: (1) Acute cholecystitis due to biliary calculus Status: Acute Plan: ERCP and cholecystectomy done. Incision sites healing well (2) Hypothyroidism Status: Acute Plan: Replacement discontinued per Dr. Gurrola (3) Diabetes Status: Acute Plan: BS improved overnight 87-187 with increase in Levemir Diabetic diet. (4) Paroxysmal a-fib Status: Acute Plan: AFIB noted during rounding. On cardizem gtt at 15 mg/hr. Dr Nava consulted and managing. Will monitor Eliquis ordered if clear per surgery (5) Hypokalemia Status: Acute Plan: Potassium at 3.5 on regular replacement. (6) Hypomagnesemia Status: Acute Plan: Magnesium 1.6 Replacement ordered with recheck in AM (7) Leukocytosis Status: Acute Plan: WBC increased to 13.9. Patient has remained afebrile. Patient reports difficulty swallowing at times. Chest Xray ordered and UA (8) Edema Status: Acute Plan: Lasix ordered BID. will monitor Assessment and Plan Assessment and plan discussed with Dr. Gurrola Discussed Condition With Nursing and Dr. Nava Discharge Planning Possible rehab pending PT eval Physician Attestation I and the FOOD MIXER have both examined this patient and reviewed this note and I agree with these findings and plan of care. Anastacio Gurrola DO Problem Qualifiers (1) Hypothyroidism: Qualified Code: E03.9 - Acquired hypothyroidism Charlotte Davis [facility] Nov 20, 2016 10:01
[2016-11-20] MEDS: PANTOPRAZOLE SOD 40 MG DELAYED RELEASE TAB PO SCH (12:25)
[2016-11-20] MEDS: APIXABAN 5 MG TABLET PO SCH ×2 (12:28→21:25)
--- NOTE | 2016-11-20 12:54 | RADRPT ---
EXAM DATE/TIME: 11/20/2016 10:54 [place] COMPARISON: CHEST PA & LAT, November 17, 2016, 14:13. INDICATIONS : Short of breath. MEDICAL HISTORY : Diabetes mellitus type II. Cholelithiasis. gallstones SURGICAL HISTORY : Cholecystectomy. ENCOUNTER: Initial ACUITY: 3 days PAIN SCORE: 0/10 LOCATION: Bilateral chest FINDINGS: PA and lateral views of the chest demonstrate persistent bibasilar areas of consolidation with associ ated effusions, left greater than right. Accounting for technique, no significant interval change. He art size is normal. Osseous structures are intact. CONCLUSION: Stable chest with bibasilar areas of consolidation/effusion, left worse than right.. Bhupinder Richards MD on November 20, 2016 at 12:51 Board Certified Radiologist. This report was verified electronically.
--- NOTE | 2016-11-20 14:47 | HHI.PR ---
Subjective Subjective Notes Feels weak SOB when OOB Objective Vitals/I&O Vital Signs Date Time Temp Pulse Resp B/P Pulse Ox O2 Delivery O2 Flow Rate FiO2 11/20/16 12:00 98.8 109 22 115/59 93 11/20/16 08:30 Nasal Cannula 4.00 Labs Laboratory Tests Test 11/19/16 11/20/16 18:48 07:32 Potassium Level 3.4 3.5 White Blood Count 13.9 Red Blood Count 3.38 Hemoglobin 9.8 Hematocrit 28.9 Mean Corpuscular Volume 85.7 Mean Corpuscular Hemoglobin 29.1 Mean Corpuscular Hemoglobin 33.9 Concent Red Cell Distribution Width 13.4 Platelet Count 151 Mean Platelet Volume 10.6 Sodium Level 136 Chloride Level 99 Carbon Dioxide Level 25.0 Anion Gap 12 Blood Urea Nitrogen 15 Creatinine 0.62 Estimat Glomerular Filtration 92 Rate Random Glucose 183 Calcium Level 8.1 Magnesium Level 1.6 Radiology Last Impressions Chest X-Ray 11/20/16 0000 Signed Impressions: Service Date/Time: Sunday, November 20, 2016 10:54 - CONCLUSION: Stable chest with bibasilar areas of consolidation/effusion, left worse than right.. Bhupinder Richards MD GI Procedure 11/13/16 0000 Signed Impressions: Service Date/Time: Sunday, November 13, 2016 08:58 - CONCLUSION: ERCP as above. Cristo Fields MD Cholangiopancreatography MRI 11/12/16 0000 Signed Impressions: Service Date/Time: Saturday, November 12, 2016 12:45 - CONCLUSION: Numerous gallstones with at least one filling defect in the distal common bile duct which is dilated to 11 mm. Bilateral lower lobe atelectasis. Bilateral breast augmentation. Cristo Fields MD Gall Bladder Ultrasound 11/11/16 0000 Signed Impressions: Service Date/Time: Friday, November 11, 2016 23:42 - CONCLUSION: 1. Multiple echogenic densities are seen within the gallbladder suggestive of stones and polyps. There is thickening of the gallbladder wall and there is a trace of fluid around the gallbladder. These findings can be demonstrated with either acute or chronic cholecystitis. Recommend correlation with patient's physical, clinical exam and laboratory values. 2. There is dilatation of the common bile duct at 10 mm. 3. 5 mm nonobstructing stone mid pole right kidney. 4. 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 Tre Brantley MD L Last Impressions Chest X-Ray 11/17/16 0000 Signed Impressions: Service Date/Time: Thursday, November 17, 2016 14:13 - CONCLUSION: Bilateral pleural effusions and bibasilar consolidation and/or compressive collapse. Haider Walker MD GI Procedure 11/13/16 0000 Signed Impressions: Service Date/Time: Sunday, November 13, 2016 08:58 - CONCLUSION: ERCP as above. Cristo Fields MD Cholangiopancreatography MRI 11/12/16 0000 Signed Impressions: Service Date/Time: Saturday, November 12, 2016 12:45 - CONCLUSION: Numerous gallstones with at least one filling defect in the distal common bile duct which is dilated to 11 mm. Bilateral lower lobe atelectasis. Bilateral breast augmentation. Cristo Fields MD Gall Bladder Ultrasound 11/11/16 0000 Signed Impressions: Service Date/Time: Friday, November 11, 2016 23:42 - CONCLUSION: 1. Multiple echogenic densities are seen within the gallbladder suggestive of stones and polyps. There is thickening of the gallbladder wall and there is a trace of fluid around the gallbladder. These findings can be demonstrated with either acute or chronic cholecystitis. Recommend correlation with patient's physical, clinical exam and laboratory values. 2. There is dilatation of the common bile duct at 10 mm. 3. 5 mm nonobstructing stone mid pole right kidney. 4. 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 Tre Brantley MD Cardiovascular: Regular Lungs: Clear Abdomen: Other (lap sites c/d/i; minimal drainage; post op tenderness; soft ) Extremities: No edema A/P Problem List: (1) Common bile duct (CBD) obstruction (2) Acute cholecystitis due to biliary calculus (3) Gallstones and inflammation of gallbladder with obstruction (4) Blood glucose elevated (5) S/P ERCP (6) Gallbladder & bile duct stone with obstruction (7) Hypothyroidism (8) Paroxysmal a-fib (9) Diabetes (10) Status post laparoscopic cholecystectomy Assessment and Plan 81 year old female with acute cholecystitis; s/p ERCP with stone removal -POD5 lap marilyn -Tolerating heart healthy diet -OOB to chair -Wean O2 as tolerated -Okay to Start Tenisha from GS standpoint -Ms. De Luna requests referral to [facility] Attending Statement PROGRESS NOTE FOR SURGICAL ATTENDING, DR. MORRIS THOMAS I agree with above assessment and plan. The exam, history, and the medical decision-making described in the above note were completed with the assistance of the mid-level provider. I reviewed and agree with the findings presented. I attest that I had a [id number] encounter with the patient on the same day, and personally performed and documented my assessment and findings in the medical record. The following services were provided during this hospital visit: Chart data review, vital sign assessments/reviewing monitor data Review of consultations notes if present. Medication orders/review and/or management Ordering and/or reviewing lab tests Ordering and/or interpreting/reviewing x-rays and/or diagnostic studies Care of the patient and discussion of the patient with the care team Documentation time To help prompt me to consider important information that might be impacting today's encounter and assessment, information from prior notes written by myself or my colleagues may have been "brought forward/copy and pasted" into today's note. Problem Qualifiers (1) Gallstones and inflammation of gallbladder with obstruction: Qualified Code: K80.67 - Calculus of gallbladder and bile duct with acute on chronic cholecystitis, with obstruction (2) Gallbladder & bile duct stone with obstruction: (3) Hypothyroidism: Qualified Code: E03.9 - Acquired hypothyroidism Nirali Patel Nov 20, 2016 14:47 Morris Thomas MD Nov 20, 2016 18:08
[2016-11-20] MEDS: MAGNESIUM SULFATE 1 GM PREMIX 100 ML IV SCH ×2 (15:29→15:30)
--- NOTE | 2016-11-20 15:54 | PD.CARD.PN ---
Subjective Subjective Remarks No CP, mild SOB, still w episodes of parox A fib/flutter Objective Medications Current Medications Medications (Trade) Dose Ordered Sig/Herbert Route Start Time Stop Time Status Last Admin (NS Flush) 2 ml UNSCH PRN .XX 11/12/16 03:15 11/12/16 19:43 (NS Flush) 2 ml BID .XX 11/12/16 09:00 11/20/16 09:00 (Tylenol) 650 mg Q6H PRN PO 11/12/16 03:15 11/19/16 18:46 (Zofran Inj) 4 mg Q6H PRN IV 11/12/16 03:15 11/17/16 16:26 (Ambien) 5 mg HS PRN PO 11/12/16 03:15 11/18/16 00:43 (Heparin Inj) 5,000 units Q12H SQ 11/12/16 06:00 Hold 11/13/16 04:44 Miscellaneous Information 1 Q361D XX 11/12/16 03:15 11/12/16 03:15 (Chlorhexidine 2% Cloth) Taper DAILY@04 TOP 11/12/16 04:00 11/08/17 03:59 11/15/16 04:00 (Chlorhexidine 2% Cloth) 3 pack UNSCH PRN TOP 11/12/16 03:15 (Adele-Colace) 1 tab BID PO 11/12/16 09:00 11/20/16 08:30 (Milk Of Magnesia Liq) 30 ml Q12H PRN PO 11/12/16 03:15 (Senokot) 17.2 mg Q12H PRN PO 11/12/16 03:15 (Dulcolax Supp) 10 mg DAILY PRN RECTAL 11/12/16 03:15 (Lactulose Liq) 30 ml DAILY PRN PO 11/12/16 03:15 (NovoLOG SUPPLEMENTAL SCALE) 1 Q4HR SQ 11/13/16 12:00 11/20/16 12:23 (Phenergan Supp) 25 mg Q6H PRN RECTAL 11/13/16 14:45 11/15/16 20:37 (Synthroid) 125 mcg DAILY@0600 PO 11/16/16 06:00 11/20/16 06:18 Miscellaneous 1 ea 1 ea UNSCH PRN OTHER 11/16/16 15:45 (Cardizem Inj/NS Inj) 125 ml @ 0 mls/hr TITRATE IV 11/17/16 08:30 11/20/16 14:13 (KCl) 20 meq BID PO 11/18/16 21:00 11/20/16 08:31 (Levemir Inj) 15 units DAILY SQ 11/20/16 09:00 11/20/16 08:24 (Eliquis) 5 mg BID PO 11/20/16 09:00 11/20/16 12:28 (Protonix) 40 mg DAILY PO 11/20/16 09:15 11/20/16 12:25 (Lasix Inj) 20 mg BID@09,18 IV PUSH 11/20/16 18:00 (Betapace) 80 mg Q12HR PO 11/20/16 21:00 UNV Vital Signs / I&O Vital Signs Date Time Temp Pulse Resp B/P Pulse Ox O2 Delivery O2 Flow Rate FiO2 11/20/16 12:00 98.8 109 22 115/59 93 11/20/16 08:30 92 Nasal Cannula 4.00 11/20/16 08:00 98.0 93 22 132/75 92 Manual Cuff/Auscultation Automatic Cuff 11/20/16 04:00 86 11/20/16 04:00 99.3 92 19 141/63 96 11/20/16 04:00 Nasal Cannula 4.00 11/20/16 00:32 Nasal Cannula 4.00 11/20/16 00:00 98.2 86 18 129/57 95 11/19/16 23:57 92 11/19/16 20:15 80 11/19/16 20:00 Nasal Cannula 4.00 11/19/16 20:00 99.0 85 18 124/58 98 11/19/16 16:44 96 Nasal Cannula 4.00 11/19/16 16:00 98.2 118 20 116/56 93 I/O 11/19/16 11/19/16 11/19/16 11/20/16 11/20/16 11/20/16 07:00 15:00 23:00 07:00 15:00 23:00 Intake Total 200 ml 719 ml 367 ml 388 ml Output Total 1000 ml 1000 ml 200 ml 400 ml Balance -800 ml -281 ml 167 ml -12 ml Intake Oral 120 ml 480 ml 240 ml 260 ml IV Total 80 ml 239 ml 127 ml 128 ml Output Urine Total 1000 ml 1000 ml 200 ml 400 ml # Bowel Movements 0 1 0 0 Physical Exam GENERAL: In NAD SKIN: Warm and dry. HEAD: Normocephalic. EYES: No scleral icterus. No injection or drainage. NECK: Supple, trachea midline. No JVD or lymphadenopathy. CARDIOVASCULAR: Regular rate and rhythm without murmurs, gallops, or rubs. RESPIRATORY: Breath sounds equal bilaterally. No accessory muscle use. GASTROINTESTINAL: Abdomen soft, nondistended. MUSCULOSKELETAL: No cyanosis, or edema. . Laboratory Laboratory Tests Test 11/19/16 11/20/16 18:48 07:32 Potassium Level 3.4 MEQ/L 3.5 MEQ/L White Blood Count 13.9 TH/MM3 Red Blood Count 3.38 MIL/MM3 Hemoglobin 9.8 GM/DL Hematocrit 28.9 % Mean Corpuscular Volume 85.7 FL Mean Corpuscular Hemoglobin 29.1 PG Mean Corpuscular Hemoglobin 33.9 % Concent Red Cell Distribution Width 13.4 % Platelet Count 151 TH/MM3 Mean Platelet Volume 10.6 FL Sodium Level 136 MEQ/L Chloride Level 99 MEQ/L Carbon Dioxide Level 25.0 MEQ/L Anion Gap 12 MEQ/L Blood Urea Nitrogen 15 MG/DL Creatinine 0.62 MG/DL Estimat Glomerular Filtration 92 ML/MIN Rate Random Glucose 183 MG/DL Calcium Level 8.1 MG/DL Magnesium Level 1.6 MG/DL Imaging Last Impressions Chest X-Ray 11/20/16 0000 Signed Impressions: Service Date/Time: Sunday, November 20, 2016 10:54 - CONCLUSION: Stable chest with bibasilar areas of consolidation/effusion, left worse than right.. Bhupinder Richards MD GI Procedure 11/13/16 0000 Signed Impressions: Service Date/Time: Sunday, November 13, 2016 08:58 - CONCLUSION: ERCP as above. Cristo Fields MD Cholangiopancreatography MRI 11/12/16 0000 Signed Impressions: Service Date/Time: Saturday, November 12, 2016 12:45 - CONCLUSION: Numerous gallstones with at least one filling defect in the distal common bile duct which is dilated to 11 mm. Bilateral lower lobe atelectasis. Bilateral breast augmentation. Cristo Fields MD Gall Bladder Ultrasound 11/11/16 0000 Signed Impressions: Service Date/Time: Friday, November 11, 2016 23:42 - CONCLUSION: 1. Multiple echogenic densities are seen within the gallbladder suggestive of stones and polyps. There is thickening of the gallbladder wall and there is a trace of fluid around the gallbladder. These findings can be demonstrated with either acute or chronic cholecystitis. Recommend correlation with patient's physical, clinical exam and laboratory values. 2. There is dilatation of the common bile duct at 10 mm. 3. 5 mm nonobstructing stone mid pole right kidney. 4. 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 Tre Brantley MD Assessment and Plan Problem List: (1) Paroxysmal a-fib (2) CAD (coronary artery disease) (3) Diabetes (4) Hypothyroidism (5) Gallbladder & bile duct stone with obstruction (6) Acute cholecystitis due to biliary calculus Assessment and Plan Still with episodes of paroxysmal AF. Start sotalol for SR maintenance and observe EKGs for QT prolongation. No angina or CHF. Replace K. Continue Eliquis 5 mg BID for stroke prevention. Increase activity. Will schedule cardiology f/u in our office after discharge. Problem Qualifiers (1) Hypothyroidism: Qualified Code: E03.9 - Acquired hypothyroidism (2) Gallbladder & bile duct stone with obstruction: Michael Nava MD Nov 20, 2016 15:54
[2016-11-20] MEDS: FUROSEMIDE 20 MG/2 ML VIAL IV PUSH SCH (17:43)
[2016-11-20] MEDS: RESP: ALBUTEROL 2.5 MG/IPRATROPIUM 0.5 MG NEB (SCH) NEB (20:35)
[2016-11-20] MEDS: SOTALOL HCL 80 MG TAB PO SCH (21:25)
[2016-11-20] MEDS: ZOLPIDEM TARTRATE 5 MG TAB PO PRN (21:26)
[2016-11-21] VITALS (14 sets, daily range): BP systolic 115–145; BP diastolic 54–66; PULSE 18–138; RESP 18–20; TEMP 98.2–99; O2SAT 93–96
[2016-11-21] MEDS: INSULIN ASPART SUPPLEMENTAL SCALE SQ SCH ×6 (01:01→20:00)
[2016-11-21] MEDS: CHLORHEXIDINE GLUCONATE 2 % 1 PACK (2 CLOTHS) TOP SCH (04:00)
[2016-11-21] MEDS: LEVOTHYROXINE SODIUM 125 MCG TAB PO SCH (06:22)
[2016-11-21] MEDS: RESP: ALBUTEROL 2.5 MG/IPRATROPIUM 0.5 MG NEB (SCH) NEB ×4 (08:32→20:52)
[2016-11-21] MEDS: RESP: ACETYLCYSTEINE 10% 30 ML NEB NEB SCH ×4 (08:33→23:51)
[2016-11-21] MEDS: DOCUSATE SODIUM 50 MG/SENNA 8.6 MG TAB PO SCH ×2 (09:00→20:43)
[2016-11-21] MEDS: INSULIN DETEMIR 100 UNITS/ML VIAL SQ SCH (09:00)
[2016-11-21] MEDS: APIXABAN 5 MG TABLET PO SCH ×2 (09:08→20:43)
[2016-11-21] MEDS: PANTOPRAZOLE SOD 40 MG DELAYED RELEASE TAB PO SCH (09:08)
[2016-11-21] MEDS: POTASSIUM CHLORIDE 20 MEQ CONTROLLED RELEASE TAB PO SCH ×2 (09:08→20:43)
[2016-11-21] MEDS: SOTALOL HCL 80 MG TAB PO SCH ×2 (09:08→20:43)
[2016-11-21] MEDS: SODIUM CHLORIDE 0.9% FLUSH 10 ML FLUSH SCH ×2 (09:09→20:44)
[2016-11-21] MEDS: FUROSEMIDE 20 MG/2 ML VIAL IV PUSH SCH ×2 (09:09→17:50)
[2016-11-21] MEDS ORDERED: ONDANSETRON ODT 4 MG TAB PO PRN (09:30)
--- NOTE | 2016-11-21 09:52 | HHI.PR ---
Subjective Remarks Patient alert and oriented. Denies any CP and SOB has improved Objective Vital Signs Date Time Temp Pulse Resp B/P Pulse Ox O2 Delivery O2 Flow Rate FiO2 11/21/16 08:49 93 Nasal Cannula 3.00 11/21/16 08:00 98.2 85 18 145/66 96 11/21/16 04:00 98.4 80 20 124/60 93 11/21/16 00:00 Room Air 11/21/16 00:00 98.8 18 18 115/55 93 11/20/16 20:38 94 Nasal Cannula 4.00 11/20/16 20:30 93 11/20/16 20:00 Room Air 11/20/16 20:00 99.5 92 18 131/64 96 11/20/16 16:00 98.0 99 24 130/62 97 11/20/16 12:00 98.8 109 22 115/59 93 I/O 11/20/16 11/20/16 11/20/16 11/21/16 11/21/16 11/21/16 06:59 14:59 22:59 06:59 14:59 22:59 Intake Total 388 ml 720 ml 84 ml Output Total 400 ml 300 ml Balance -12 ml 420 ml 84 ml Intake Oral 260 ml 720 ml IV Total 128 ml 84 ml Output Urine Total 400 ml 300 ml # Voids 2 2 # Bowel Movements 0 2 Result Diagram: 11/20/16 0732 11/20/16 0732 Procedures ERCP on the Objective Remarks GENERAL: Alert and cooperative SKIN: Warm and dry. Incision site healing well HEAD: Normocephalic. EYES: No scleral icterus. No injection or drainage. NECK: Supple, trachea midline. No JVD or lymphadenopathy. CARDIOVASCULAR: Regular rate and rhythm without murmurs, gallops, or rubs. RESPIRATORY: Breath sounds equal bilaterally. No accessory muscle use. GASTROINTESTINAL: Abdomen soft, non-tender, nondistended. MUSCULOSKELETAL: No cyanosis, or edema. BACK: Nontender without obvious deformity. No CVA tenderness. Medications and IVs Current Medications Medications (Trade) Dose Ordered Sig/Herbert Route Start Time Stop Time Status Last Admin (NS Flush) 2 ml UNSCH PRN .XX 11/12/16 03:15 11/12/16 19:43 (NS Flush) 2 ml BID .XX 11/12/16 09:00 11/21/16 09:09 (Tylenol) 650 mg Q6H PRN PO 11/12/16 03:15 11/19/16 18:46 (Ambien) 5 mg HS PRN PO 11/12/16 03:15 11/20/16 21:26 (Heparin Inj) 5,000 units Q12H SQ 11/12/16 06:00 Hold 11/13/16 04:44 Miscellaneous Information 1 Q361D XX 11/12/16 03:15 11/12/16 03:15 (Chlorhexidine 2% Cloth) Taper DAILY@04 TOP 11/12/16 04:00 11/08/17 03:59 11/15/16 04:00 (Chlorhexidine 2% Cloth) 3 pack UNSCH PRN TOP 11/12/16 03:15 (Adele-Colace) 1 tab BID PO 11/12/16 09:00 11/20/16 21:26 (Milk Of Magnesia Liq) 30 ml Q12H PRN PO 11/12/16 03:15 (Senokot) 17.2 mg Q12H PRN PO 11/12/16 03:15 (Dulcolax Supp) 10 mg DAILY PRN RECTAL 11/12/16 03:15 (Lactulose Liq) 30 ml DAILY PRN PO 11/12/16 03:15 (NovoLOG SUPPLEMENTAL SCALE) 1 Q4HR SQ 11/13/16 12:00 11/21/16 08:00 (Phenergan Supp) 25 mg Q6H PRN RECTAL 11/13/16 14:45 11/15/16 20:37 (Synthroid) 125 mcg DAILY@0600 PO 11/16/16 06:00 11/21/16 06:22 (Pill Splitter) 1 ea UNSCH PRN OTHER 11/16/16 15:45 (KCl) 20 meq BID PO 11/18/16 21:00 11/21/16 09:08 (Levemir Inj) 15 units DAILY SQ 11/20/16 09:00 11/21/16 09:00 (Eliquis) 5 mg BID PO 11/20/16 09:00 11/21/16 09:08 (Protonix) 40 mg DAILY PO 11/20/16 09:15 11/21/16 09:08 (Lasix Inj) 20 mg BID@09,18 IV PUSH 11/20/16 18:00 11/21/16 09:09 (Betapace) 80 mg Q12HR PO 11/20/16 21:00 11/21/16 09:08 (Zofran Odt) 4 mg Q4H PRN PO 11/21/16 09:30 Assessment and Plan Problem List: (1) Acute cholecystitis due to biliary calculus Status: Acute Plan: ERCP and cholecystectomy done. Incision sites healing well C/O nausea. Did well with breakfast. Zofran ordered as needed. (2) Hypothyroidism Status: Acute Plan: Replacement discontinued per Dr. Gurrola (3) Diabetes Status: Acute Plan: BS [id number] on Levemir will increase Diabetic diet. (4) Paroxysmal a-fib Status: Acute Plan: NSR. Cardizem gtt off yesterday and put on betapace. On Eliquis. Dr Nava consulted and managing. Will monitor (5) Hypokalemia Status: Acute Plan: labs on pending. (6) Hypomagnesemia Status: Acute Plan: Magnesium 1.6 yesterday (7) Leukocytosis Status: Acute Plan: WBC improving at 11.7 Patient has remained afebrile. UA pending. (8) Edema Status: Acute Plan: Improved. On lasix (9) SOB (shortness of breath) Status: Acute Plan: Pulmonary consulted. Patient reports feeling less SOB. On lasix BID Chest Xray with stable chest with effusion/consolidation left greater than right Assessment and Plan Assessment and plan discussed with Dr. Gurrola Discussed Condition With Nursing Discharge Planning [facility] with [facility] Physician Attestation I and the [employer] have both examined this patient and reviewed this note and I agree with these findings and plan of care. Anastacio Gurrola. Problem Qualifiers (1) Hypothyroidism: Qualified Code: E03.9 - Acquired hypothyroidism Charlotte Davis [employer] Nov 21, 2016 09:51
[2016-11-21 10:58] LABS: HEMATOCRIT 29.3 % (35.0-46.0); MEAN CELL VOLUME 86.6 FL (80.0-100.0); MEAN CORPUSCULAR HEMOGLOBIN 29.3 PG (27.0-34.0); MEAN CORPUSCULAR HGB CONC 33.8 % (32.0-36.0); PLATELET COUNT 157 TH/MM3 (150-450); RED BLOOD COUNT 3.38 MIL/MM3 (4.00-5.30); REVIEW FLAG FINAL; WHITE BLOOD COUNT 11.7 TH/MM3 (4.0-11.0)
[2016-11-21 13:04] LABS: BICARBONATE 20.2 MEQ/L (21.0-32.0); POTASSIUM 4.5 MEQ/L (3.5-5.1)
--- NOTE | 2016-11-21 18:41 | MB ---
cc: OLGA GURROLA D.O., JOHN DATE OF CONSULTATION: 11/20/2016 REASON FOR CONSULTATION Atelectasis and respiratory insufficiency. HISTORY OF PRESENT ILLNESS This is an 81-year-old white female who initially was admitted through the emergency room with right upper quadrant pain. The patient has a previous history for gallstones and apparently has been evaluated for gallbladder surgery. Due to intermittent persistent pain and nausea and vomiting she was hospitalized and started on IV fluids and antibiotics. The ultrasound of the gallbladder did show some gallstones and fluid around the gallbladder and the patient was suspected to have acute cholecystitis. An ERCP was done with sphincterotomy and she apparently developed some pancreatitis as well with nausea and vomiting. She subsequently underwent a laparoscopic cholecystectomy on November 15. She was receiving IV antibiotic therapy during this period. After surgery and had some trouble taking deep breaths and had developed some increasing atelectasis at both lung bases. The most recent chest x-ray showed evidence of consolidation and basilar atelectasis. The patient has been using incentive spirometry since surgery. She is requiring oxygen at 3-4 liters nasal cannula and on room air her sats drop into the 80s and low 90s. The chest x-ray also showed some pulmonary edema and she has received diuretics as well. Presently she denies chest pains. She has some upper abdominal pains and trouble taking deep breaths. PAST MEDICAL HISTORY 1. Diabetes mellitus. 2. History of kidney stones. 3. Previous history of gallbladder disease and cholecystitis. 4. Hypothyroidism. PAST SURGICAL HISTORY Laparoscopic cholecystectomy, ERCP and sphincterotomy of the gallbladder. FAMILY HISTORY Noncontributory. HABITS The patient denies any significant smoking and alcohol use is occasional. MEDICATIONS Med list was reviewed from the chart including insulin, Pepcid, Cardizem, nebulized albuterol and Zofran. REVIEW OF SYSTEMS The patient has abdominal pains and nausea. She has no leg swelling or calf muscle pains. She does have some joint pains. No headaches or blackouts. No depression or anxiety. PHYSICAL EXAMINATION GENERAL: A thinly built elderly lady who is pale and in no acute distress. VITAL SIGNS: Blood pressure 104/50, heart rate was 112, respirations 24, temperature 98.2. HEENT: Head is normocephalic. Pupils are reactive. Tongue is dry. Throat is injected. Nasal mucosa is clear. NECK: Supple. No bruits. No thyroid enlargement. No lymphadenopathy. CHEST: Equal movements. There are crackles at both lung bases with diffuse wheezes bilaterally. HEART: The heart sounds are regular, S1 and S2. No murmur. No S3. ABDOMEN: Tenderness in the upper abdomen with no organomegaly. Bowel sounds are active. EXTREMITIES: Mild varicosities. No edema. No calf tenderness. NEUROLOGIC: Reflexes are 1+ with no gross motor deficits. SKIN: No lesions. IMPRESSION 1. Status post laparoscopic cholecystectomy and respiratory insufficiency. 2. Bibasilar atelectasis with pleural effusions. 3. Pulmonary edema and possible basilar pneumonia. 4. History of diabetes mellitus type 2. PLAN The patient has been advised to use the incentive spirometer every three hours. She is already on antibiotic coverage per the infectious disease service. We will also place her on nebulized DuoNeb solution q.i.d. and acetylcysteine nebulizer three times a day. The patient will be sent for a pulmonary function study with bronchodilators. Follow-up chest x-ray to be done. Anticoagulants continued for prophylaxis. EzPAP with DuoNeb solution added q.i.d. thank you, Dr. Gurrola, for this consultation. MD SHEA Vela/MARIA DEL ROSARIO /5:43 PM /6:19 PM
--- NOTE | 2016-11-21 18:45 | PD.CARD.PN ---
Subjective Subjective Remarks No CP or SOB, feels better Objective Medications Current Medications Medications (Trade) Dose Ordered Sig/Herbert Route Start Time Stop Time Status Last Admin (NS Flush) 2 ml UNSCH PRN .XX 11/12/16 03:15 11/12/16 19:43 (NS Flush) 2 ml BID .XX 11/12/16 09:00 11/21/16 09:09 (Tylenol) 650 mg Q6H PRN PO 11/12/16 03:15 11/19/16 18:46 (Ambien) 5 mg HS PRN PO 11/12/16 03:15 11/20/16 21:26 (Heparin Inj) 5,000 units Q12H SQ 11/12/16 06:00 Hold 11/13/16 04:44 Miscellaneous Information 1 Q361D XX 11/12/16 03:15 11/12/16 03:15 (Chlorhexidine 2% Cloth) Taper DAILY@04 TOP 11/12/16 04:00 11/08/17 03:59 11/15/16 04:00 (Chlorhexidine 2% Cloth) 3 pack UNSCH PRN TOP 11/12/16 03:15 (Adele-Colace) 1 tab BID PO 11/12/16 09:00 11/20/16 21:26 (Milk Of Magnesia Liq) 30 ml Q12H PRN PO 11/12/16 03:15 (Senokot) 17.2 mg Q12H PRN PO 11/12/16 03:15 (Dulcolax Supp) 10 mg DAILY PRN RECTAL 11/12/16 03:15 (Lactulose Liq) 30 ml DAILY PRN PO 11/12/16 03:15 (NovoLOG SUPPLEMENTAL SCALE) 1 Q4HR SQ 11/13/16 12:00 11/21/16 08:00 (Phenergan Supp) 25 mg Q6H PRN RECTAL 11/13/16 14:45 11/15/16 20:37 (Synthroid) 125 mcg DAILY@0600 PO 11/16/16 06:00 11/21/16 06:22 (Pill Splitter) 1 ea UNSCH PRN OTHER 11/16/16 15:45 (KCl) 20 meq BID PO 11/18/16 21:00 11/21/16 09:08 (Eliquis) 5 mg BID PO 11/20/16 09:00 11/21/16 09:08 (Protonix) 40 mg DAILY PO 11/20/16 09:15 11/21/16 09:08 (Lasix Inj) 20 mg BID@09,18 IV PUSH 11/20/16 18:00 11/21/16 17:50 (Betapace) 80 mg Q12HR PO 11/20/16 21:00 11/21/16 09:08 (Zofran Odt) 4 mg Q4H PRN PO 11/21/16 09:30 (Levemir Inj) 17 units DAILY SQ 11/22/16 09:00 Vital Signs / I&O Vital Signs Date Time Temp Pulse Resp B/P Pulse Ox O2 Delivery O2 Flow Rate FiO2 11/21/16 16:00 99.0 89 18 126/60 93 11/21/16 12:00 98.5 78 18 116/54 96 11/21/16 09:00 85 11/21/16 08:49 93 Nasal Cannula 3.00 11/21/16 08:00 94 Nasal Cannula 4.00 11/21/16 08:00 98.2 85 18 145/66 96 11/21/16 04:00 98.4 80 20 124/60 93 11/21/16 00:00 Room Air 11/21/16 00:00 98.8 18 18 115/55 93 11/20/16 20:38 94 Nasal Cannula 4.00 11/20/16 20:30 93 11/20/16 20:00 Room Air 11/20/16 20:00 99.5 92 18 131/64 96 I/O 11/20/16 11/20/16 11/20/16 11/21/16 11/21/16 11/21/16 07:00 15:00 23:00 07:00 15:00 23:00 Intake Total 388 ml 720 ml 84 ml 720 ml Output Total 400 ml 300 ml Balance -12 ml 420 ml 84 ml 720 ml Intake Oral 260 ml 720 ml 720 ml IV Total 128 ml 84 ml Output Urine Total 400 ml 300 ml # Voids 2 2 3 # Bowel Movements 0 2 1 Physical Exam GENERAL: In NAD SKIN: Warm and dry. HEAD: Normocephalic. EYES: No scleral icterus. No injection or drainage. NECK: Supple, trachea midline. No JVD or lymphadenopathy. CARDIOVASCULAR: Regular rate and rhythm without murmurs, gallops, or rubs. RESPIRATORY: Breath sounds equal bilaterally. No accessory muscle use. GASTROINTESTINAL: Abdomen soft, nondistended. MUSCULOSKELETAL: No cyanosis, or edema. . Laboratory Laboratory Tests Test 11/21/16 09:00 White Blood Count 11.7 TH/MM3 Red Blood Count 3.38 MIL/MM3 Hemoglobin 9.9 GM/DL Hematocrit 29.3 % Mean Corpuscular Volume 86.6 FL Mean Corpuscular Hemoglobin 29.3 PG Mean Corpuscular Hemoglobin 33.8 % Concent Red Cell Distribution Width 14.0 % Platelet Count 157 TH/MM3 Mean Platelet Volume 10.3 FL Sodium Level 133 MEQ/L Potassium Level 4.5 MEQ/L Chloride Level 101 MEQ/L Carbon Dioxide Level 20.2 MEQ/L Anion Gap 12 MEQ/L Blood Urea Nitrogen 15 MG/DL Creatinine 0.79 MG/DL Estimat Glomerular Filtration 70 ML/MIN Rate Random Glucose 267 MG/DL Calcium Level 7.9 MG/DL Imaging Last Impressions Chest X-Ray 11/20/16 0000 Signed Impressions: Service Date/Time: Sunday, November 20, 2016 10:54 - CONCLUSION: Stable chest with bibasilar areas of consolidation/effusion, left worse than right.. Bhupinder Richards MD GI Procedure 11/13/16 0000 Signed Impressions: Service Date/Time: Sunday, November 13, 2016 08:58 - CONCLUSION: ERCP as above. Cristo Fields MD Cholangiopancreatography MRI 11/12/16 0000 Signed Impressions: Service Date/Time: Saturday, November 12, 2016 12:45 - CONCLUSION: Numerous gallstones with at least one filling defect in the distal common bile duct which is dilated to 11 mm. Bilateral lower lobe atelectasis. Bilateral breast augmentation. Cristo Fields MD Gall Bladder Ultrasound 11/11/16 0000 Signed Impressions: Service Date/Time: Friday, November 11, 2016 23:42 - CONCLUSION: 1. Multiple echogenic densities are seen within the gallbladder suggestive of stones and polyps. There is thickening of the gallbladder wall and there is a trace of fluid around the gallbladder. These findings can be demonstrated with either acute or chronic cholecystitis. Recommend correlation with patient's physical, clinical exam and laboratory values. 2. There is dilatation of the common bile duct at 10 mm. 3. 5 mm nonobstructing stone mid pole right kidney. 4. 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 Tre Brantley MD Assessment and Plan Problem List: (1) Paroxysmal a-fib (2) CAD (coronary artery disease) (3) Diabetes (4) Hypothyroidism (5) Gallbladder & bile duct stone with obstruction (6) Acute cholecystitis due to biliary calculus Assessment and Plan Stays in SR on sotalol. EKG with no QTc prolongation (will recheck again in AM) . No angina or CHF. Continue Eliquis 5 mg BID for stroke prevention. Increase activity. Will schedule cardiology f/u in our office after discharge. Anticipate discharge soon. Problem Qualifiers (1) Hypothyroidism: Qualified Code: E03.9 - Acquired hypothyroidism (2) Gallbladder & bile duct stone with obstruction: Michael Nava MD Nov 21, 2016 18:45
--- NOTE | 2016-11-21 20:37 | EKG ---
Date Performed: 11/21/2016 Time Performed: 05:36:58 PTAGE: 81 years EKG: Sinus rhythm Anterior T wave changes are nonspecific Low QRS voltages in limb leads Borderline ECG PREVIOUS TRACING : 11/17/2016 17.13 Compared to the previous tracing tachycardia no longer pres ent DOCTOR: Michael Nava Interpretating Date/Time 11/21/2016 20:36:02
[2016-11-21] MEDS: ZOLPIDEM TARTRATE 5 MG TAB PO PRN (20:43)
[2016-11-21] MEDS: RESP: ALBUTEROL 2.5 MG/IPRATROPIUM 0.5 MG NEB (PRN) INH (23:51)
[2016-11-22] VITALS (9 sets, daily range): BP systolic 102–141; BP diastolic 52–66; PULSE 76–137; RESP 17–20; TEMP 98.2–99.1; O2SAT 91–100
[2016-11-22 00:09] LABS: BLOOD, URINE NEG (NEG); GLUCOSE,URINE NEG (NEG); KETONE, URINE NEG (NEG); MUCUS URINE FEW /lpf (OCC); NITRITE,URINE NEG (NEG); PH, URINE 7.5 (5.0-8.5); SQUAMOUS EPITHELIAL CELL URINE <1 /hpf (0-5); TRANSITIONAL EPI CELLS, URINE <1 /hpf; URINE COLOR LIGHT-YELLOW (YELLW/STRAW)
[2016-11-22 00:10] LABS: COMMENT (UR) CULT NOT INDICATED; CULTURE IF INDICATED CULT NOT INDICATED
[2016-11-22] MEDS: INSULIN ASPART SUPPLEMENTAL SCALE SQ SCH ×7 (01:30→23:36)
[2016-11-22] MEDS: CHLORHEXIDINE GLUCONATE 2 % 1 PACK (2 CLOTHS) TOP SCH (04:00)
[2016-11-22] MEDS: LEVOTHYROXINE SODIUM 125 MCG TAB PO SCH (05:07)
--- NOTE | 2016-11-22 07:01 | RADRPT ---
EXAM DATE/TIME: 11/22/2016 06:48 [place] COMPARISON: CHEST PA & LAT, November 20, 2016, 10:54. INDICATIONS : Short of breath, no chest pain, evaluate infiltrate MEDICAL HISTORY : Diabetes mellitus type II. Cholelithiasis. SURGICAL HISTORY : Cholecystectomy. ENCOUNTER: Subsequent ACUITY: 4 - 6 days PAIN SCORE: 0/10 LOCATION: Bilateral chest FINDINGS: Portable AP view of the chest demonstrates a normal-sized cardiac silhouette. There are stable small bibasilar pleural-parenchymal opacities. No pneumothorax is visualized. Soft tissues demonstrate no a cute finding. CONCLUSION: Stable chest x-ray with small bilateral pleural effusions with associated volume loss and/or air spac e consolidation. Saravanan York MD on November 22, 2016 at 6:59 Board Certified Radiologist. This report was verified electronically.
[2016-11-22 07:23] LABS: HEMATOCRIT 27.1 % (35.0-46.0); MEAN CELL VOLUME 84.8 FL (80.0-100.0); MEAN CORPUSCULAR HEMOGLOBIN 29.2 PG (27.0-34.0); MEAN CORPUSCULAR HGB CONC 34.4 % (32.0-36.0); PLATELET COUNT 181 TH/MM3 (150-450); RED BLOOD COUNT 3.19 MIL/MM3 (4.00-5.30); RED CELL DISTRIBUTION WIDTH 13.7 % (11.6-17.2); REVIEW FLAG FINAL
[2016-11-22] MEDS: RESP: ACETYLCYSTEINE 10% 30 ML NEB NEB SCH ×2 (08:00→16:00)
[2016-11-22 08:13] LABS: BICARBONATE 27.6 MEQ/L (21.0-32.0); POTASSIUM 4.1 MEQ/L (3.5-5.1)
[2016-11-22] MEDS: DOCUSATE SODIUM 50 MG/SENNA 8.6 MG TAB PO SCH ×2 (08:25→20:22)
[2016-11-22] MEDS: POTASSIUM CHLORIDE 20 MEQ CONTROLLED RELEASE TAB PO SCH ×2 (08:25→20:23)
[2016-11-22] MEDS: SOTALOL HCL 80 MG TAB PO SCH ×2 (08:25→20:23)
[2016-11-22] MEDS: APIXABAN 5 MG TABLET PO SCH ×2 (08:26→20:22)
[2016-11-22] MEDS: FUROSEMIDE 20 MG/2 ML VIAL IV PUSH SCH ×2 (08:26→17:35)
[2016-11-22] MEDS: PANTOPRAZOLE SOD 40 MG DELAYED RELEASE TAB PO SCH (08:26)
[2016-11-22] MEDS: SODIUM CHLORIDE 0.9% FLUSH 10 ML FLUSH SCH ×2 (08:27→20:23)
[2016-11-22] MEDS: RESP: ALBUTEROL 2.5 MG/IPRATROPIUM 0.5 MG NEB (SCH) NEB ×3 (08:39→20:06)
[2016-11-22] MEDS ORDERED: INSULIN DETEMIR 100 UNITS/ML VIAL SQ SCH (09:00)
--- NOTE | 2016-11-22 09:14 | HHI.PR ---
Subjective Remarks Patient alert and oriented. Denies any CP and SOB has improved. On O2 4 liters this AM Objective Vital Signs Date Time Temp Pulse Resp B/P Pulse Ox O2 Delivery O2 Flow Rate FiO2 11/22/16 08:41 98 Nasal Cannula 4.00 11/22/16 04:00 98.8 76 18 105/52 98 11/22/16 04:00 Nasal Cannula 4.00 11/22/16 00:00 98.4 113 20 102/57 93 11/22/16 00:00 Nasal Cannula 4.00 11/21/16 23:54 95 Nasal Cannula 4.00 11/21/16 22:46 80 11/21/16 22:02 138 11/21/16 20:53 94 Nasal Cannula 4.00 11/21/16 20:13 128 11/21/16 20:12 81 11/21/16 20:00 Room Air 11/21/16 20:00 98.9 114 18 116/56 93 11/21/16 20:00 84 11/21/16 16:00 99.0 89 18 126/60 93 11/21/16 12:00 98.5 78 18 116/54 96 I/O 11/21/16 11/21/16 11/21/16 11/22/16 11/22/16 11/22/16 06:59 14:59 22:59 06:59 14:59 22:59 Intake Total 720 ml 240 ml 360 ml Output Total 0 ml 1000 ml Balance 720 ml 240 ml -640 ml Intake Oral 720 ml 240 ml 360 ml Output Urine Total 0 ml 1000 ml # Voids 3 # Bowel Movements 1 0 0 Result Diagram: 11/22/1643 11/22/16 0543 Procedures ERCP on the Objective Remarks GENERAL: Alert and cooperative SKIN: Warm and dry. Incision site healing well HEAD: Normocephalic. EYES: No scleral icterus. No injection or drainage. NECK: Supple, trachea midline. No JVD or lymphadenopathy. CARDIOVASCULAR: Regular rate and rhythm without murmurs, gallops, or rubs. RESPIRATORY: Breath sounds equal bilaterally. No accessory muscle use. GASTROINTESTINAL: Abdomen soft, non-tender, nondistended. MUSCULOSKELETAL: No cyanosis, or edema. BACK: Nontender without obvious deformity. No CVA tenderness. Assessment and Plan Problem List: (1) Acute cholecystitis due to biliary calculus Status: Acute Plan: ERCP and cholecystectomy done. Incision sites healing well Did well with breakfast no complaints of nausea. Zofran as needed. (2) Hypothyroidism Status: Acute Plan: Replacement discontinued per Dr. Gurrola (3) Diabetes Status: Acute Plan: BS [id number] on Levemir and diabetic diet. (4) Paroxysmal a-fib Status: Acute Plan: NSR. Cardizem gtt off on betapace and Eliquis. Dr Nava consulted and managing. Will monitor./ Had episode last night of AFIB RVR in rate of 130 's SR now patient was asymptomatic. Discussed with Dr. Nava will keep on Betapace (5) Hypokalemia Status: Acute Plan: Potassium 4.1 this AM on replacement (6) Hypomagnesemia Status: Acute Plan: Recheck in AM (7) Leukocytosis Status: Acute Plan: WBC improving at 9.0 Patient has remained afebrile. UA WNL (8) Edema Status: Acute Plan: Improved. On lasix (9) SOB (shortness of breath) Status: Acute Plan: Pulmonary consulted. Patient reports feeling less SOB. On lasix BID Chest Xray with stable chest with effusion/consolidation left greater than right Continues to be on 4 liters nasal cannula. Assessment and Plan Assessment and plan discussed with Dr. Gurrola Discussed Condition With Nursing and Dr. Nava Discharge Planning Home with [facility] Physician Attestation I and the [employer] have both examined this patient and reviewed this note and I agree with these findings and plan of care. Anastacio Gurrola DO Problem Qualifiers (1) Hypothyroidism: Qualified Code: E03.9 - Acquired hypothyroidism Charlotte Davis [facility] Nov 22, 2016 09:14
--- NOTE | 2016-11-22 14:06 | PD.CARD.PN ---
Subjective Subjective Remarks No CP or SOB, off O2, episode of asymptomatic AF yest PM, now in SR Objective Medications Current Medications Medications (Trade) Dose Ordered Sig/Herbert Route Start Time Stop Time Status Last Admin (NS Flush) 2 ml UNSCH PRN .XX 11/12/16 03:15 11/12/16 19:43 (NS Flush) 2 ml BID .XX 11/12/16 09:00 11/22/16 08:27 (Tylenol) 650 mg Q6H PRN PO 11/12/16 03:15 11/19/16 18:46 (Ambien) 5 mg HS PRN PO 11/12/16 03:15 11/21/16 20:43 (Heparin Inj) 5,000 units Q12H SQ 11/12/16 06:00 Hold 11/13/16 04:44 Miscellaneous Information 1 Q361D XX 11/12/16 03:15 11/12/16 03:15 (Chlorhexidine 2% Cloth) Taper DAILY@04 TOP 11/12/16 04:00 11/08/17 03:59 11/15/16 04:00 (Chlorhexidine 2% Cloth) 3 pack UNSCH PRN TOP 11/12/16 03:15 (Adele-Colace) 1 tab BID PO 11/12/16 09:00 11/22/16 08:25 (Milk Of Magnesia Liq) 30 ml Q12H PRN PO 11/12/16 03:15 (Senokot) 17.2 mg Q12H PRN PO 11/12/16 03:15 (Dulcolax Supp) 10 mg DAILY PRN RECTAL 11/12/16 03:15 (Lactulose Liq) 30 ml DAILY PRN PO 11/12/16 03:15 (NovoLOG SUPPLEMENTAL SCALE) 1 Q4HR SQ 11/13/16 12:00 11/22/16 11:49 (Phenergan Supp) 25 mg Q6H PRN RECTAL 11/13/16 14:45 11/15/16 20:37 (Synthroid) 125 mcg DAILY@0600 PO 11/16/16 06:00 11/22/16 05:07 (Pill Splitter) 1 ea UNSCH PRN OTHER 11/16/16 15:45 (KCl) 20 meq BID PO 11/18/16 21:00 11/22/16 08:25 (Eliquis) 5 mg BID PO 11/20/16 09:00 11/22/16 08:26 (Protonix) 40 mg DAILY PO 11/20/16 09:15 11/22/16 08:26 (Lasix Inj) 20 mg BID@09,18 IV PUSH 11/20/16 18:00 11/22/16 08:26 (Betapace) 80 mg Q12HR PO 11/20/16 21:00 11/22/16 08:25 (Zofran Odt) 4 mg Q4H PRN PO 11/21/16 09:30 (Levemir Inj) 17 units DAILY SQ 11/22/16 09:00 11/22/16 08:31 Vital Signs / I&O Vital Signs Date Time Temp Pulse Resp B/P Pulse Ox O2 Delivery O2 Flow Rate FiO2 11/22/16 12:00 99.1 100 18 141/63 100 11/22/16 08:41 98 Nasal Cannula 4.00 11/22/16 08:00 84 11/22/16 08:00 98.3 82 18 132/60 91 11/22/16 07:30 99 Room Air 4.00 11/22/16 04:00 98.8 76 18 105/52 98 11/22/16 04:00 Nasal Cannula 4.00 11/22/16 00:00 98.4 113 20 102/57 93 11/22/16 00:00 Nasal Cannula 4.00 11/21/16 23:54 95 Nasal Cannula 4.00 11/21/16 22:46 80 11/21/16 22:02 138 11/21/16 20:53 94 Nasal Cannula 4.00 11/21/16 20:13 128 11/21/16 20:12 81 11/21/16 20:00 Room Air 11/21/16 20:00 98.9 114 18 116/56 93 11/21/16 20:00 84 11/21/16 16:00 99.0 89 18 126/60 93 I/O 11/21/16 11/21/16 11/21/16 11/22/16 11/22/16 11/22/16 06:59 14:59 22:59 06:59 14:59 22:59 Intake Total 720 ml 240 ml 360 ml Output Total 0 ml 1000 ml Balance 720 ml 240 ml -640 ml Intake Oral 720 ml 240 ml 360 ml Output Urine Total 0 ml 1000 ml # Voids 3 # Bowel Movements 1 0 0 Physical Exam GENERAL: In NAD SKIN: Warm and dry. HEAD: Normocephalic. EYES: No scleral icterus. No injection or drainage. NECK: Supple, trachea midline. No JVD or lymphadenopathy. CARDIOVASCULAR: Regular rate and rhythm without murmurs, gallops, or rubs. RESPIRATORY: Breath sounds equal bilaterally. No accessory muscle use. GASTROINTESTINAL: Abdomen soft, nondistended. MUSCULOSKELETAL: No cyanosis, or edema. . Laboratory Laboratory Tests Test 11/22/16 11/22/16 01:30 05:43 Random Glucose 40 MG/DL 213 MG/DL White Blood Count 9.0 TH/MM3 Red Blood Count 3.19 MIL/MM3 Hemoglobin 9.3 GM/DL Hematocrit 27.1 % Mean Corpuscular Volume 84.8 FL Mean Corpuscular Hemoglobin 29.2 PG Mean Corpuscular Hemoglobin 34.4 % Concent Red Cell Distribution Width 13.7 % Platelet Count 181 TH/MM3 Mean Platelet Volume 10.3 FL Sodium Level 135 MEQ/L Potassium Level 4.1 MEQ/L Chloride Level 100 MEQ/L Carbon Dioxide Level 27.6 MEQ/L Anion Gap 7 MEQ/L Blood Urea Nitrogen 16 MG/DL Creatinine 0.84 MG/DL Estimat Glomerular Filtration 65 ML/MIN Rate Calcium Level 8.3 MG/DL Imaging Last Impressions Chest X-Ray 11/22/16 0600 Signed Impressions: Service Date/Time: October 06:48 - CONCLUSION: Stable chest x-ray with small bilateral pleural effusions with associated volume loss and/ or air space consolidation. Saravanan York MD GI Procedure 11/13/16 0000 Signed Impressions: Service Date/Time: Sunday, November 13, 2016 08:58 - CONCLUSION: ERCP as above. Cristo Fields MD Cholangiopancreatography MRI 11/12/16 0000 Signed Impressions: Service Date/Time: Saturday, November 12, 2016 12:45 - CONCLUSION: Numerous gallstones with at least one filling defect in the distal common bile duct which is dilated to 11 mm. Bilateral lower lobe atelectasis. Bilateral breast augmentation. Cristo Fields MD Gall Bladder Ultrasound 11/11/16 0000 Signed Impressions: Service Date/Time: Friday, November 11, 2016 23:42 - CONCLUSION: 1. Multiple echogenic densities are seen within the gallbladder suggestive of stones and polyps. There is thickening of the gallbladder wall and there is a trace of fluid around the gallbladder. These findings can be demonstrated with either acute or chronic cholecystitis. Recommend correlation with patient's physical, clinical exam and laboratory values. 2. There is dilatation of the common bile duct at 10 mm. 3. 5 mm nonobstructing stone mid pole right kidney. 4. 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 Tre Brantley MD Assessment and Plan Problem List: (1) Paroxysmal a-fib (2) CAD (coronary artery disease) (3) Diabetes (4) Hypothyroidism (5) Gallbladder & bile duct stone with obstruction (6) Acute cholecystitis due to biliary calculus Assessment and Plan Episode of AF yest, now back in SR on sotalol. EKG with no QTc prolongation. Continue sotalol, if not effective, amiodarone will be considered. No angina or CHF. Continue Eliquis 5 mg BID for stroke prevention. Increase activity. Will schedule cardiology f/u in our office after discharge. OK to discharge home from cardiac standpoint. Problem Qualifiers (1) Hypothyroidism: Qualified Code: E03.9 - Acquired hypothyroidism (2) Gallbladder & bile duct stone with obstruction: Michael Nava MD Nov 22, 2016 14:06
--- NOTE | 2016-11-22 14:58 | EKG ---
Date Performed: 11/22/2016 Time Performed: 05:23:52 PTAGE: 81 years EKG: Sinus rhythm Anterior T wave changes are nonspecific Borderline ECG No significant change. PREVIOUS TRACING : 11/21/2016 05.36 DOCTOR: Lenny Schumacher Interpretating Date/Time 11/22/2016 14:57:25
--- NOTE | 2016-11-22 19:18 | HHI.PR ---
Subjective Remarks Feels better. On O2 3 L. Good output . and able to do IS up to 2000 CC. No Chest pain.On Lasix and Eliquis Objective Vital Signs Date Time Temp Pulse Resp B/P Pulse Ox O2 Delivery O2 Flow Rate FiO2 11/22/16 16:02 99.0 99 17 140/62 100 11/22/16 12:00 99.1 100 18 141/63 100 11/22/16 08:41 98 Nasal Cannula 4.00 11/22/16 08:00 84 11/22/16 08:00 98.3 82 18 132/60 91 11/22/16 07:30 99 Room Air 4.00 11/22/16 04:00 98.8 76 18 105/52 98 11/22/16 04:00 Nasal Cannula 4.00 11/22/16 00:00 98.4 113 20 102/57 93 11/22/16 00:00 Nasal Cannula 4.00 11/21/16 23:54 95 Nasal Cannula 4.00 11/21/16 22:46 80 11/21/16 22:02 138 11/21/16 20:53 94 Nasal Cannula 4.00 11/21/16 20:13 128 11/21/16 20:12 81 11/21/16 20:00 Room Air 11/21/16 20:00 98.9 114 18 116/56 93 11/21/16 20:00 84 I/O 11/21/16 11/21/16 11/21/16 11/22/16 11/22/16 11/22/16 06:59 14:59 22:59 06:59 14:59 22:59 Intake Total 720 ml 240 ml 360 ml 480 ml Output Total 0 ml 1000 ml Balance 720 ml 240 ml -640 ml 480 ml Intake Oral 720 ml 240 ml 360 ml 480 ml Output Urine Total 0 ml 1000 ml # Voids 3 3 # Bowel Movements 1 0 0 Result Diagram: 11/22/16 0543 11/22/16 0543 Procedures ERCP on the Objective Remarks GENERAL: A thinly built elderly lady who is pale and in no acute distress. HEENT: Head is normocephalic. Pupils are reactive. Tongue is dry. Throat is injected. Nasal mucosa is clear. NECK: Supple. No bruits. No thyroid enlargement. No lymphadenopathy. CHEST: Equal movements. There are Occ crackles at both lung bases with diffuse wheezes bilaterally. HEART: The heart sounds are regular, S1 and S2. No murmur. No S3. ABDOMEN: Tenderness in the upper abdomen with no organomegaly. Bowel sounds are active. EXTREMITIES: Mild varicosities. No edema. No calf tenderness. NEUROLOGIC: Reflexes are 1+ with no gross motor deficits. SKIN: No lesions. Assessment and Plan Assessment and Plan IMPRESSION 1. Status post laparoscopic cholecystectomy and respiratory insufficiency. 2. Bibasilar atelectasis with pleural effusions. 3. Pulmonary edema and possible basilar pneumonia. 4. History of diabetes mellitus type 2. Plan : 1. Continue nebs qid , duoneb 2. Wean O2 to 2 L. 3. taper lasix to 20 mg daily. 4. IS at bedside q3h. 5. BMP CBC in am 6. Continue Eliquis. 7. To rehab soon Kia Hawkins MD Nov 22, 2016 19:18
[2016-11-22] MEDS: ZOLPIDEM TARTRATE 5 MG TAB PO PRN (20:23)
[2016-11-23] VITALS (7 sets, daily range): BP systolic 84–150; BP diastolic 50–67; PULSE 68–124; RESP 18–20; TEMP 97.9–98.5; O2SAT 93–99
[2016-11-23] MEDS: RESP: ALBUTEROL 2.5 MG/IPRATROPIUM 0.5 MG NEB (PRN) INH (00:38)
[2016-11-23] MEDS ORDERED: GLUCAGON 1 MG/ML VIAL OTHER PRN (01:15)
[2016-11-23] MEDS ORDERED: DEXTROSE 50% IN WATER 50 ML VIAL(D50) IV PUSH PRN (01:15)
[2016-11-23] MEDS: CHLORHEXIDINE GLUCONATE 2 % 1 PACK (2 CLOTHS) TOP SCH (04:00)
[2016-11-23] MEDS: INDIVIDUALIZED INSULIN NOVOLOG SUPPLEMENTAL SCALE SQ SCH ×3 (04:33→12:46)
[2016-11-23] MEDS: LEVOTHYROXINE SODIUM 125 MCG TAB PO SCH (05:50)
[2016-11-23 06:50] LABS: HEMATOCRIT 31.4 % (35.0-46.0); MEAN CELL VOLUME 86.5 FL (80.0-100.0); MEAN CORPUSCULAR HEMOGLOBIN 28.4 PG (27.0-34.0); MEAN CORPUSCULAR HGB CONC 32.9 % (32.0-36.0); PLATELET COUNT 244 TH/MM3 (150-450); RED BLOOD COUNT 3.63 MIL/MM3 (4.00-5.30); RED CELL DISTRIBUTION WIDTH 13.8 % (11.6-17.2); REVIEW FLAG FINAL
[2016-11-23 07:13] LABS: BICARBONATE 31.2 MEQ/L (21.0-32.0); MAGNESIUM 2.1 MG/DL (1.5-2.5); POTASSIUM 4.4 MEQ/L (3.5-5.1)
[2016-11-23] MEDS: RESP: ACETYLCYSTEINE 10% 30 ML NEB NEB SCH ×2 (08:00)
[2016-11-23] MEDS: SOTALOL HCL 80 MG TAB PO SCH (08:25)
[2016-11-23] MEDS: PANTOPRAZOLE SOD 40 MG DELAYED RELEASE TAB PO SCH (08:25)
[2016-11-23] MEDS: APIXABAN 5 MG TABLET PO SCH (08:25)
[2016-11-23] MEDS: DOCUSATE SODIUM 50 MG/SENNA 8.6 MG TAB PO SCH (08:25)
[2016-11-23] MEDS: POTASSIUM CHLORIDE 20 MEQ CONTROLLED RELEASE TAB PO SCH (08:25)
[2016-11-23] MEDS: SODIUM CHLORIDE 0.9% FLUSH 10 ML FLUSH SCH (08:26)
[2016-11-23] MEDS ORDERED: FUROSEMIDE 20 MG/2 ML VIAL IV PUSH SCH (09:00)
[2016-11-23] MEDS ORDERED: INSULIN DETEMIR 100 UNITS/ML VIAL SQ SCH (09:00)
[2016-11-23] MEDS: RESP: ALBUTEROL 2.5 MG/IPRATROPIUM 0.5 MG NEB (SCH) NEB ×2 (09:50→13:05)
[2016-11-23] MEDS ORDERED: LEVEMIR SQ (13:16)
[2016-11-23] MEDS ORDERED: FURO20TA PO (13:16)
[2016-11-23] MEDS ORDERED: APIX5TAB PO (13:16)
[2016-11-23] MEDS ORDERED: SOTA80 PO (13:16)
[2016-11-23] MEDS ORDERED: LEVO.125 PO (13:16)
[2016-11-23] MEDS ORDERED: POTA20TA5 PO (13:16)
--- NOTE | 2016-11-23 13:17 | HHI.FF ---
Face to Face Verification Diagnosis: (1) Paroxysmal a-fib (2) Hypothyroidism (3) Diabetes (4) Gallbladder & bile duct stone with obstruction Home Health Nursing Order: Medical education Signs/symptoms of disease process Diabetic education I have seen patient Chandni De Luna on 11/23/16. My clinical findings support the need for the requested home health care services because: Deconditioned w/ increased weakness I certify that my clinical findings support that this patient is homebound because: Post-op weakness Need for psychosocial assistance Charlotte Davis Nov 23, 2016 13:17
--- NOTE | 2016-11-23 13:24 | HHI.DS ---
Discharge Summary Admission Date Nov 12, 2016 at 01:05 Discharge Date: Nov 23, 2016 Admitting Diagnosis cholecystitis, sepsis (1) Acute cholangitis Diagnosis: Principal (2) Sepsis Diagnosis: Principal (3) Gallbladder & bile duct stone with obstruction Diagnosis: Principal (4) Elevated LFTs Diagnosis: Principal Procedures ERCP on the Brief History 81-year-old woman presents complaining of right upper quadrant abdominal pain, rating to the back between her shoulder blades worsening over the past several days, and especially bad this afternoon. She's had a history of gallbladder problems in the past and known cholelithiasis. She was told she needed her gallbladder out about a year or so ago but improved. She was doing well until about a week or so ago she started having intermittent symptoms. This afternoon the symptoms got abruptly worse, more persistent, or so she with vomiting. The symptoms of what a little bit now. She otherwise had been feeling well. She had some chills. Ultrasound of the gallbladder perform at the [place] emergency department confirmed the wall thickening, gallbladder suggesting acute cholecystitis. CBC/BMP: 11/23/16 0554 11/23/16 0554 Significant Findings Laboratory Tests Test 11/20/16 11/21/16 11/22/16 11/22/16 23:45 09:00 01:30 05:43 Urine Mucus FEW /lpf (OCC) White Blood Count 11.7 TH/MM3 (4.0-11.0) Red Blood Count 3.38 MIL/MM3 3.19 MIL/MM3 (4.00-5.30) (4.00-5.30) Hemoglobin 9.9 GM/DL 9.3 GM/DL (11.6-15.3) (11.6-15.3) Hematocrit 29.3 % 27.1 % (35.0-46.0) (35.0-46.0) Sodium Level 133 MEQ/L 135 MEQ/L (136-145) (136-145) Carbon Dioxide Level 20.2 MEQ/L (21.0-32.0) Estimat Glomerular Filtration 70 ML/MIN (>89) 65 ML/MIN (>89) Rate Random Glucose 267 MG/DL 40 MG/DL 213 MG/DL (74-106) (74-106) (74-106) Calcium Level 7.9 MG/DL 8.3 MG/DL (8.5-10.1) (8.5-10.1) Test 11/22/16 11/23/16 23:30 05:54 Random Glucose 38 MG/DL 273 MG/DL (74-106) (74-106) Red Blood Count 3.63 MIL/MM3 (4.00-5.30) Hemoglobin 10.3 GM/DL (11.6-15.3) Hematocrit 31.4 % (35.0-46.0) Chloride Level 97 MEQ/L (98-107) Blood Urea Nitrogen 22 MG/DL (7-18) Estimat Glomerular Filtration 54 ML/MIN (>89) Rate PE at Discharge GENERAL: Alert and cooperative SKIN: Warm and dry. Incision site healing well HEAD: Normocephalic. EYES: No scleral icterus. No injection or drainage. NECK: Supple, trachea midline. No JVD or lymphadenopathy. CARDIOVASCULAR: Regular rate and rhythm without murmurs, gallops, or rubs. RESPIRATORY: Breath sounds equal bilaterally. No accessory muscle use. GASTROINTESTINAL: Abdomen soft, non-tender, nondistended. MUSCULOSKELETAL: No cyanosis, or edema. BACK: Nontender without obvious deformity. No CVA tenderness. Transfer Summary 81-year-old woman presents complaining of right upper quadrant abdominal pain, radiating to the back between her shoulder blades worsening over the past several days. She's had a history of gallbladder problems in the past and known cholelithiasis. She was told she needed her gallbladder out about a year or so ago but improved. She was doing well until about a week or so ago she started having intermittent symptoms. This afternoon the symptoms got abruptly worse, more persistent, or so she with vomiting. The symptoms of what a little bit now. She otherwise had been feeling well. She had some chills. Ultrasound of the gallbladder perform at the [facility] emergency department confirmed the wall thickening, gallbladder suggesting acute cholecystitis. SUBJ 11/13: MRCP done yesterday showed numerous Gallstones and at least one distal bile duct stone. The bile duct measured 11 mm in diameter. Plan for ERCP with sphincterotomy and stone extraction today with Dr. Woodson Hospital Course 81-year-old woman presents complaining of right upper quadrant abdominal pain, rating to the back between her shoulder blades worsening over the past several days, and especially bad this afternoon. She's had a history of gallbladder problems in the past and known cholelithiasis. She was told she needed her gallbladder out about a year or so ago but improved. She was doing well until about a week or so ago she started having intermittent symptoms. This afternoon the symptoms got abruptly worse, more persistent, or so she with vomiting. The symptoms of what a little bit now. She otherwise had been feeling well. She had some chills. Ultrasound of the gallbladder perform at the [facility] emergency department confirmed the wall thickening, gallbladder suggesting acute cholecystitis. Patient had a ERCP and then cholecystectomy during her hospitalization which she tolerated well. Her hospitalization was complicated by AFIB RVR and hypoglycemia. was consulted and patient was put on Sotolol and Eliquis. She did continue to have break through AFIB but she was completely asymptomatic. Discussed with Dr. Nava and he was comfortable and instructed to have patient follow up in office. She also had periods of hypoglycemia. Long acting insulin has been decreased from [address] Gurrola and he was comfortable with discharge and patient was instructed to write all blood sugars down and follow up in office on Saturday. Instructions given to patient Pt Condition on Discharge: Good Discharge Disposition: Disch w/ Home Health Serv Discharge Instructions DIET: Follow Instructions for: As Tolerated, No Restrictions Activities you can perform: Regular-No Restrictions Follow up Referrals: Cardiology with Michael Nava MD PCP Follow-up with sonya New Medications: Apixaban (Eliquis) 5 Mg Tab 5 MG PO BID Blood Clot Prevention #60 TAB Furosemide (Furosemide) 20 Mg Tab 20 MG PO DAILY Chest Congestion/Cough #30 TAB Insulin Detemir Inj (Levemir Inj) 1,000 unit/ 10 ML Vial 5 UNITS SQ DAILY Blood Sugar Management Days 30 INJECTION Levothyroxine (Synthroid) 125 Mcg Tab 125 MCG PO DAILY@0600 Thyroid #30 TAB Potassium Chloride Microencaps (Potassium Chloride Microencaps) 20 Meq Tab 20 MEQ PO BID Electrolyte Replacement #60 TAB Sotalol (Sorine) 80 Mg Tab 80 MG PO Q12HR Regulate Heart Beat #60 TAB Discontinued Medications: Insulin Lispro (Human) Inj (Humalog Inj) 1,000 Unit/10 Ml Vial 1-9 UNITS SQ ACHS Max dose at bedtime:( )units; sugars< 70,(0)units; sugars 150 -199,(1)unit; sugars 200-249,(3)units; sugars 250-299,(5)units; sugars 300-349,( 7)units; sugars more than 349,(9)units. Blood Sugar Management #1 Ref 0 VIAL Levothyroxine (Levothyroxine) 150 Mcg Tab 150 MCG PO DAILY Thyroid #30 Ref 0 TAB ([trujera]) 17 UNIT SQ DAILY Charlotte Davis [facility] Nov 23, 2016 13:24
[2016-11-24] MEDS ORDERED: FUROSEMIDE 20 MG TAB PO SCH (09:00)
--- NOTE | 2016-11-26 12:25 | RSPPFT ---
DATE OF PROCEDURE: 11/22/16 COMMENTS: Spirometry demonstrates an FEV1 of 0.9 at 35% of predicted, FVC of 1.1 at 34%, FEF 25-75 at 41%. Post-bronchodilator study demonstrated no significant change. Flow volume loops suggest a restrictive defect. IMPRESSION: 1. Moderate restrictive disease. 2. No significant change following use of bronchodilator.
== END 2016-11-23 15:10 | disposition home health service (06) | DRG 417 ==
LOC: PHED 21:50 → PHEDA 11-12 01:05 → HIME 11-12 04:10 → N04A 11-14 11:24
PROVIDERS: ADMIT Internal Medicine Critical Care Medicine; ATTEND Family Medicine
PROC: 0F798ZZ Dilation of Common Bile Duct, Via Natural or Artificial Opening Endoscopic (ICD-10-PCS; 2016-11-13)
PROC: 0FC98ZZ Extirpation of Matter from Common Bile Duct, Via Natural or Artificial Opening Endoscopic (ICD-10-PCS; 2016-11-13 08:05)
PROC: 0FT44ZZ Resection of Gallbladder, Percutaneous Endoscopic Approach (ICD-10-PCS; principal; 2016-11-15 15:27)
DX: K80.67 Calculus of gallbladder and bile duct with acute and chronic cholecystitis with obstruction (principal); A41.9 Sepsis, unspecified organism; J90 Pleural effusion, not elsewhere classified; J81.1 Chronic pulmonary edema; J18.9 Pneumonia, unspecified organism; I48.92 Unspecified atrial flutter; E11.649 Type 2 diabetes mellitus with hypoglycemia without coma; I48.0 Paroxysmal atrial fibrillation; J98.11 Atelectasis; E83.42 Hypomagnesemia; E03.9 Hypothyroidism, unspecified; E87.6 Hypokalemia; I25.10 Atherosclerotic heart disease of native coronary artery without angina pectoris; Z87.442 Personal history of urinary calculi; Z79.4 Long term (current) use of insulin
CPT/HCPCS: 71010; 71020; 74181; 74330; 76377; 76705; 76937; 80048; 80053; 80076; 81001; 82150; 82947; 82948; 83036; 83605; 83690; 83735; 84100; 84132; 84134; 84443; 85025; 85027; 87040; 87641; 88304; 93005; 94060; 94150; 94640; 94664; 96365; 96375; 96376; C1769; J1644; J1815; J1940; J2060; J2175; J2270; J2405; J2543; J2710; J3010; J3475; J3480; J7030; J7042; J7120; J7608; J7613; J7644; Q9967

== ENCOUNTER 2017-11-25 05:21 | Inpatient (IN) ==
[2017-11-25] MEDS ORDERED: Heparin - SQ 10,000 UNITS/ML Vial SQ SCH (06:00)
[2017-11-25] MEDS ORDERED: Chlorhexidine Gluconate 2% 1 Pack (2 Cloths) TOPICAL SCH (06:15)
[2017-11-25] MEDS ORDERED: Metoprolol Tartrate 25 MG Tablet PO SCH (06:15)
[2017-11-25] MEDS ORDERED: Sugammadex Inj 200 MG/2 ML Vial IV.PUSH ONE (06:45)
[2017-11-25] MEDS ORDERED: Sodium Chlor 0.9% Inj 500 ML IV.SIG SCH (07:00)
[2017-11-25] MEDS ORDERED: Lidocaine 1%/Epinephrine 1:100,000 Inj 20 ML Vial ONE (07:05)
[2017-11-25] MEDS ORDERED: HYDROmorphone PF Inj 1 MG/ML Ampul IV.PUSH PRN (10:23)
[2017-11-25] MEDS ORDERED: LORazepam 0.5 MG Tablet PO PRN (10:23)
[2017-11-25] MEDS ORDERED: Dextrose 50% in Water 50 ML Vial IV.PUSH PRN (10:32)
[2017-11-25] MEDS ORDERED: fentaNYL Citrate Inj 100 MCG/2 ML Ampul ONE (11:03)
[2017-11-25] MEDS ORDERED: *morphine SULFATE 4 MG/ML PERIprocedure ONLY ONE (11:08)
[2017-11-25] MEDS ORDERED: *Ondansetron Inj 4 MG/2 ML Vial PERIprocedural Use ONLY ONE (11:14)
[2017-11-25] MEDS ORDERED: *Promethazine Inj 25 MG/ML Vial PERIprocedural use ONLY ONE (11:23)
[2017-11-25] MEDS ORDERED: KCL 20 mEq/D5W/NaCl 0.45% Inj 1,000 ML ONE (11:32)
[2017-11-25] MEDS ORDERED: Lidocaine PF 1% Inj 5 ML Syringe INFILTRATN ONE (12:00)
[2017-11-25] MEDS: Ketorolac Inj 30 MG/ML (IVP) Vial IV.PUSH SCH ×3 (12:10→23:58)
--- NOTE | 2017-11-25 12:25 | MP ---
cc: Selena Granados MD [facility],Michael Bashir MD DATE OF OPERATION: 11/25/2017 PREOPERATIVE DIAGNOSIS: Complex pelvic mass. 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 PROCEDURE: Exploratory laparotomy, total abdominal hysterectomy, bilateral salpingo-oophorectomy (with resection of 15 cm left ovarian mass), omentectomy, lysis of adhesions. SURGEON: Selena Granados MD [employer] BACK FEEDER: Davi first aid trainer. ANESTHESIA: General endotracheal anesthesia. ESTIMATED BLOOD LOSS: 250 mL URINE OUTPUT: 300 mL IV FLUIDS: 2200 mL INDICATIONS: An 82-year-old female found on exam and imaging to have a large complex pelvic mass. She has been counseled regarding recommendations for surgical evaluation and treatment and, after giving that some thought, she has decided to move forward with definitive surgical evaluation and treatment. She is seen in the preoperative holding area where the findings are again discussed, the plan of care was reviewed, questions were asked and answered. She expressed good understanding and agrees to move forward with surgery. FINDINGS: Upon entry into the peritoneal cavity, it was determined that a complex mass is arising from and replacing the left ovary; it is approximately 15 cm in dimension. The sigmoid colon and mesentery are somewhat adherent to the gonadal vessels and the mass and the mass is partially adherent to the left pelvic sidewall. The right tube and ovary grossly appeared normal. The uterus is small and grossly appears normal. There were no appreciably enlarged pelvic or periaortic lymph nodes. Liver and diaphragm edges are smooth. The omentum grossly appears normal. Large and small bowel and adjacent mesentery appeared normal. On pathology evaluation, the capsule of the mass was removed intact. Grossly it is suspicious for neoplasm. She has a modestly elevated CA-125 at 64. Her pathologist (Dr. 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 STATEMENT OF COMPLEXITY/MODIFIER: Extensive adhesions required significant additional time and dissection to resolve the adhesions, establish normal anatomy, and accomplish surgical objectives. Modifier should be applied accordingly. DESCRIPTION OF PROCEDURE: She was taken to the operating room and placed in dorsal lithotomy position, after general endotracheal anesthesia was administered. A timeout was undertaken. She was identified by site recognition and hospital ID bracelet and the proposed procedure was reviewed and confirmed. An exam under anesthesia was performed, which made me believe that this was best approach via laparotomy and not best approached via laparoscopy and therefore decision was made to move forward with laparotomy. She was carefully positioned in padded Donald stirrups. Her arms were secured, without tension out to the sides. She was prepped and draped in sterile fashion, Belcher catheter placed in the bladder. Orogastric tube was in the stomach on suction. As part of the draping we had an Ioban across the abdominal wall. A midline vertical incision was made from the symphysis up toward the umbilicus, carried down to the fascia. The fascia was entered. The rectus muscles were in the midline. The peritoneal cavity was entered. Peritoneal washings were obtained for cytology. The anatomy was surveyed with findings as described above. The left round ligament was isolated, doubly suture ligated and transected. The anterior and posterior leaves of the broad ligament were opened. The colon and adjacent tissue was taken down from its adhesions to the gonadal vessels and mass with sharp dissection and focal point cautery. Retroperitoneal dissection allowed identification of the left ureter. A window was made in the peritoneum just below the uteroovarian ligament on the left and the infundibulopelvic ligament was isolated by dissecting proximally, elevating the gonadal vessels and retracting the ureter posteriorly. The left gonadal vessels were doubly clamped, cut and doubly suture ligated. The remaining attachments were dissected to isolate the left uteroovarian ligament, which was doubly clamped, cut, thereby removing the mass, which was sent for frozen section analysis. Attention was directed toward the right side where the right round ligament was doubly suture ligated. The anterior and posterior leaves of the broad ligament were opened. The right ureter was identified. The right infundibulopelvic ligament was isolated. The intervening peritoneum was opened. The infundibulopelvic ligament was doubly clamped, cut, and suture ligated. Dissection was carried proximally to isolate the right uteroovarian ligament which was doubly clamped and cut, thereby removing the right tube and ovary, sent for permanent histopathologic analysis. Pending results from frozen section analysis, a portion of the infracolic omentum was removed. Nonvascular attachments of the transverse colon were taken down with cautery. The vascular attachments were isolated, clamped, cut, and suture ligated with 2-0 Vicryl suture such that a generous partial omentectomy was performed to have the specimen to assess for microscopic metastatic disease should malignancy be detected. Frozen section came back preliminarily not showing any malignant cells, but grossly still suspicion, and as per my discussion with Chandni De Luna prior surgery, she was somewhat in favor of keeping the uterus if the mass is absolutely benign, but if there is any question or concern to move forward with hysterectomy. Given that there is still some concern what the final pathology sign out would be, it was felt prudent to proceed with hysterectomy. The uterine vessels were skeletonized bilaterally. The vesicouterine peritoneum was dissected off the lower uterine segment and cervix and the posterior peritoneum was opened down to the level of the cervix. The uterine vessels on the right side were clamped, cut, and suture ligated as were the cardinal, paracervical and uterosacral ligaments until a curved Sanchez clamp could be placed below the cervix at the lateral vaginal angle. Similar steps were carried out on the left side where the left uterine vessels were clamped, cut, and suture ligated as were the cardinal, paracervical and uterosacral ligaments in a stepwise fashion until a curved Sanchez clamp could be placed at the lateral vaginal angle below the cervix. Sharp dissection was used to separate the cervix from the upper vagina. The specimen was inspected and the entire cervix was noted to be removed as the uterus and cervix were now removed and sent for permanent histopathologic analysis. The vaginal cuff was closed with interrupted [id number] Vicryl sutures. The corners were secured to the edge of the uterosacral ligament and the posterior peritoneum was included in the closure, which rendered the cuff completely airtight and hemostatic. The pelvis was irrigated. Small bleeders were rendered hemostatic with bipolar cautery. The pelvis and the abdominal anatomy were again inspected. It was felt that all reasonable surgical objectives had been completed. The pelvis was irrigated and then to assist in continued hemostasis, hemostatic Surgicel was placed in the lateral pelvic sidewall dissection bed and across the vaginal cuff. Visual and manual inspection confirmed there were no remaining foreign objects in the peritoneal cavity as the lap pads had been removed. Preliminary counts were correct and attention was directed toward closing. The abdominal wall was closed with 0 looped PDS in a continuous modified Smead-Stanley fashion starting at the apices and meeting at the midpoint where the sutures were tied. Subcutaneous tissue was irrigated, Viraj's fascia reapproximated with interrupted 2-0 Vicryl sutures and then a 3-0 Vicryl subcuticular was used to close the skin edges. Steri-Strips and dry sterile dressing were placed over the incision. Pelvic exam confirmed there were no remaining foreign objects in the vagina. She was returned to dorsal supine position. Final counts were correct and she was pending reversal of anesthesia, when I left the operating room to precede her to the postanesthesia care unit. MD GILBERT Buitrago/ELY , 11:49 AM , 12:10 PM LILIANA
[2017-11-25] MEDS: Insulin NovoLIN Regular Correctional Sugar Inj SQ SCH ×3 (13:04→23:58)
[2017-11-25] MEDS: KCL 20 mEq/D5W/NaCl 0.45% Inj 1,000 ML IV.CONT SCH ×2 (13:05→21:24)
--- NOTE | 2017-11-25 13:12 | P.PNONC ---
Subjective Interval history: post op ocean freight agent/onc note patient sleeping will answer questions appropriately when woken up denies pain feels some nausea, RN states she got Phenergan in PACU no complaints otherwise Objective Vital Signs/Intake & Output: Vital Signs 11/25/17 06:20 11/25/17 10:56 11/25/17 12:15 Temperature 97.8 F 96.1 F L 97.5 F L Pulse Rate 80 72 72 Respiratory Rate 16 18 19 Blood Pressure 142/64 H 143/63 H 145/67 H Pulse Oximetry 100 100 100 11/25/17 12:21 11/25/17 12:34 11/25/17 12:41 Temperature 96.6 F L Pulse Rate 77 78 Respiratory Rate 18 18 Blood Pressure 156/73 H Pulse Oximetry 100 Intake & Output 11/24/17 11/25/17 11/25/17 18:59 06:59 18:59 Intake Total 2400 / 2400 Output Total 650 / 650 Balance 1750 / 1750 Weight 49.9 kg Intake: IV 1100 / 1100 LR 1000 mL Inj 1,000 ML @ 30 1000 / 1000 mls/hr IV.SIG .Q24H [facility] Rx#: [id number] Ancef Inj 1,000 MG In NS Inj 100 / 100 100 ML @ 200 mls/hr IV.SIG GLASS CUTTING MACHINE OPERATOR [facility] Rx#:[id number] Anesthesia Amount 1300 / 1300 Output: Estimated Blood Loss 250 / 250 Urine Amount (Catheter) 400 / 400 100 100 / 100 300 300 / 300 Other: Weight On Admission 49.9 kg Laboratory Results: Laboratory Results - last 24 hr 11/25/17 11/25/17 11/25/17 06:28 06:30 11:16 POC Glucose 131 H 162 H Blood Type O Positive Blood Type Recheck Required Antibody Screen Negative Medications: Active Medications Generic Name Dose Route Start Last Admin Trade Name Freq PRN Reason Stop Dose Admin Chlorhexidine Gluconate 3 pack 11/25/17 06:15 11/25/17 06:51 Chlorhexidine 2% Cloth TOPICAL 11/28/17 06:01 3 pack GLASS CUTTING MACHINE OPERATOR ANDREW Administration Cefazolin Sodium 1,000 mg/ 100 mls @ 200 mls/hr 11/25/17 06:00 11/25/17 07:30 Sodium Chloride IV.SIG 11/28/17 05:59 Infused GLASS CUTTING MACHINE OPERATOR [facility] Infusion Insulin Human Regular 0 units 11/25/17 12:00 07/30/18 13:04 Novolin R Correctional Sugar Inj SQ Not Given Q6HR [facility] Protocol Ketorolac Tromethamine 15 mg 11/25/17 12:00 11/25/17 12:10 Toradol Inj IV.PUSH 11/26/17 06:01 15 mg Q6HR ANDREW Administration Metoprolol Tartrate 25 mg 11/25/17 06:15 11/25/17 06:52 Lopressor PO 11/28/17 06:01 Not Given GLASS CUTTING MACHINE OPERATOR [facility] Povidone Iodine 1 applicatio 11/25/17 06:15 11/25/17 06:51 Betadine 5% Antisepsis Kit EACH NARE 11/28/17 06:01 1 applicatio GLASS CUTTING MACHINE OPERATOR [facility] Administration Objective Remarks: GENERAL: Well-nourished, well-developed patient. sleepy SKIN: Warm and dry. HEAD: Normocephalic. EYES: No scleral icterus. No injection or drainage. CARDIOVASCULAR: Regular rate and rhythm without murmurs. RESPIRATORY: Breath sounds equal bilaterally. No accessory muscle use. GASTROINTESTINAL: Abdomen soft, dressing c/d/i EXTREMITIES: teds and scds MUSCULOSKELETAL: Adequate muscle tone. NEUROLOGICAL: No obvious focal deficit. Awake, alert, and oriented x3. PSYCHIATRIC:sleeping awakens to voice, easily falls back to sleep Assessment/Plan - Plan s/p X Lap abdominal hysterectomy with BSO, resection of pelvic mass and omentectomy post op orders in chart Percocet, Dilaudid PRN pain Toradol as scheduled for pain OOB to chair when more awake ADAT...clear liquids now IS to bedside OK to remove greer on POD #2 anticipate discharge in 48-72 hours patient will follow up in ocean freight agent/onc clinic X 2 weeks for final pathology
[2017-11-25] MEDS ORDERED: HYDROmorphone PF Inj 2 MG/ML Vial IV.PUSH PRN (15:18)
[2017-11-25] MEDS ORDERED: Promethazine 25 MG Supp RECTAL PRN (16:07)
[2017-11-25] MEDS: Heparin - SQ 10,000 UNITS/ML Vial SQ SCH (18:19)
--- NOTE | 2017-11-25 19:31 | P.CONFP ---
History of Present Illness Service: primary care Consult date: 11/25/17 Primary Care Provider: Anastacio Gurrola DO Family Provider: Anastacio Gurrola DO History of Present Illness: this patient in my family practice developed unexplaines lower abdominal discomfort a ct abdomen was performed which showed a large pelvic mass she was referred to Dr Granados for surgical consultation she is now s/p hysterectomy Review of Systems Gastrointestinal: Reports abdominal pain, Reports nausea PMFSH - History History Provided By: Patient - Medical History Medical History: Medical History (Last Reviewed 11/25/17 @ 06:27 by Hermelinda Peter RN) Afib Diabetes Dizziness Gallstone [place] (hard of hearing) History of anesthesia reaction Hypothyroidism Joint pain Kidney stones Lung nodules Osteoarthritis Ovarian mass Pancreatitis Sepsis Wears partial dentures - Surgical History Surgical History: Surgical History (Last Reviewed 11/25/17 @ 06:27 by Hermelinda Peter RN) H/O cataract removal with insertion of prosthetic lens History of breast augmentation History of cholecystectomy - Tobacco History Second Hand Smoke Exposure: No Smoking Status: Never smoker - Alcohol History How Often Do You Have a Drink Containing Alcohol: Never - Substance Use History Substance History: No History of Abuse - Travel History Recent Travel in the [place] Within the Last 8 Weeks: No Recent Travel Out of the Country Within the Last 8 Weeks: No Medications and Allergies Active Medications: Active Medications Chlorhexidine Gluconate (Chlorhexidine 2% Cloth) 3 pack TOPICAL PAINTER SIGN MAINTENANCE [facility] Stop: 11/28/17 06:01 Last Admin: 11/25/17 06:51 Dose: 3 pack Dextrose (D50w Vial) 50 ml IV.PUSH UNSCH PRN PRN Reason: PER HYPOGLYCEMIA PROTOCOL Diphenhydramine HCl (Benadryl) 25 mg PO Q6H PRN PRN Reason: ITCHING Glucagon (Glucagon Inj) 1 mg OTHER PRN PRN PRN Reason: for Hypoglycemia Protocol Heparin Sodium (Porcine) (Heparin Inj) 5,000 units SQ Q12H [facility] Last Admin: 11/25/17 18:19 Dose: Not Given Hydromorphone HCl (Dilaudid Pf Inj) 0.5 mg IV.PUSH Q4H PRN PRN Reason: PAIN 6-10 IF NOT TOLERATING PO Cefazolin Sodium 1,000 mg/ (Sodium Chloride) 100 mls @ 200 mls/hr IV.SIG PAINTER SIGN MAINTENANCE [facility] Stop: 11/28/17 05:59 Last Infusion: 11/25/17 07:30 Dose: Infused Potassium Chloride/Dextrose/Sod Cl (D5w/1/2ns + Kcl 20 Meq Inj) 1,000 mls @ 100 mls/hr IV.CONT .Q10H [facility] Last Admin: 11/25/17 13:05 Dose: 100 mls/hr Insulin Human Regular (Novolin R Correctional Sugar Inj) 0 units SQ Q6HR [facility]; Protocol Last Admin: 11/25/17 18:10 Dose: 7 units Ketorolac Tromethamine (Toradol Inj) 15 mg IV.PUSH Q6HR [facility] Stop: 11/26/17 06:01 Last Admin: 11/25/17 18:10 Dose: 15 mg Levothyroxine Sodium (Synthroid) 125 mcg PO DAILY@0600 [facility] Lorazepam (Ativan) 0.25 mg PO Q8H PRN PRN Reason: ANXIETY Metoprolol Tartrate (Lopressor) 25 mg PO [employer]INTER [employer] MAINTENAN[employer] [facility] Stop: 11/28/17 06:01 Last Admin: 11/25/17 06:52 Dose: Not Given Miscellaneous (Pill Splitter) 1 each OTHER DAILY [facility] Miscellaneous Information (Mis Nursing Information) 1 each OTHER UNSCH PRN PRN Reason: SEE LABEL COMMENTS Stop: 11/26/17 10:51 Ondansetron HCl (Zofran Odt) 4 mg PO Q6H PRN PRN Reason: NAUSEA OR VOMITING Last Admin: 11/25/17 15:19 Dose: 4 mg Oxycodone/Acetaminophen (Percocet 5/325 Mg) 2 tab PO Q4H PRN PRN Reason: PAIN SCALE 6 TO 10 Oxycodone/Acetaminophen (Percocet 5/325 Mg) 1 tab PO Q4H PRN PRN Reason: PAIN SCALE 1 TO 5 Povidone Iodine (Betadine 5% Antisepsis Kit) 1 applicatio EACH NARE PAINTER SIGN MAINTENANCE [facility] Stop: 11/28/17 06:01 Last Admin: 11/25/17 06:51 Dose: 1 applicatio Promethazine HCl (Phenergan Supp) 25 mg RECTAL Q4H PRN PRN Reason: NAUSEA Last Admin: 11/25/17 18:10 Dose: 25 mg Sodium Chloride (Ns Flush) 2 ml IV.FLUSH BID [facility] Sodium Chloride (Ns Flush) 2 ml IV.FLUSH PRN PRN PRN Reason: FLUSH AFTER USING IV ACCESS Allergies Allergy/AdvReac Type Severity Reaction Status Date / Time No Known Allergies Allergy Verified 11/25/17 06:19 Home Medications Medication Instructions Recorded Confirmed Type cholecalciferol (vitamin D3) 1,000 unit PO DAILY 11/14/17 11/25/17 History [Vitamin D3] coenzyme Q10 [Co Q-10] 100 mg PO DAILY 11/14/17 11/25/17 History cyanocobalamin (vitamin B-12) 1,000 mcg PO DAILY 11/14/17 11/25/17 History [Vitamin B-12] insulin lispro [Humalog U-100 1 sliding scale dose SUB-Q ACHS 11/14/17 11/25/17 History Insulin] CORRECT SUGARS levothyroxine 125 mcg PO DAILY 11/14/17 11/25/17 History dnryzbpnydro-[id number]-vit K 1 tab PO DAILY 11/14/17 11/25/17 History [Adults Multivitamin] rivaroxaban [Xarelto] 20 mg PO DAILY 11/14/17 11/25/17 History insulin glargine [Toujeo Max 14 unit SUB-Q DAILY 11/25/17 11/25/17 History SoloStar] Exam Vital signs: Vital Signs 11/25/17 06:20 11/25/17 10:56 11/25/17 11:00 Temperature 97.8 F 96.1 F L Pulse Rate 80 72 69 Respiratory Rate 16 18 19 Blood Pressure 142/64 H 143/63 H 135/62 Pulse Oximetry 100 100 100 11/25/17 11:15 11/25/17 11:30 11/25/17 11:45 Temperature Pulse Rate 68 71 72 Respiratory Rate 19 19 19 Blood Pressure 139/65 146/60 H 144/62 H Pulse Oximetry 100 100 100 11/25/17 12:15 11/25/17 12:21 11/25/17 12:34 Temperature 97.5 F L 96.6 F L Pulse Rate 72 77 Respiratory Rate 19 18 18 Blood Pressure 145/67 H 156/73 H Pulse Oximetry 100 100 11/25/17 12:41 11/25/17 15:00 11/25/17 15:08 Temperature 97.7 F Pulse Rate 78 79 79 Respiratory Rate 18 Blood Pressure 155/73 H Pulse Oximetry 99 Intake & Output 11/25/17 11/25/17 11/26/17 06:59 18:59 06:59 Intake Total 2400 / 2400 Output Total 1550 / 1550 Balance 850 / 850 Weight 49.9 kg Intake: IV 1100 / 1100 LR 1000 mL Inj 1,000 ML @ 30 1000 / 1000 mls/hr IV.SIG .Q24H [facility] Rx#: [id number] Ancef Inj 1,000 MG In NS Inj 100 / 100 100 ML @ 200 mls/hr IV.SIG PAINTER [employer] MAINTENANCE [facility] Rx#:[id number] Oral 0 / 0 Anesthesia Amount 1300 / 1300 Output: Urine 900 / 900 Estimated Blood Loss 250 / 250 Urine Amount (Catheter) 400 / 400 100 100 / 100 300 300 / 300 Other: Weight On Admission 49.9 kg - Constitutional Comments: drowsey nauseaus post op - Routine HEENT Exam Head: Present: normocephalic, atraumatic Eye: Present: EOMI, PERRL ENT: Present: mucous membranes moist - Routine Neck Exam Present: supple - Routine Respiratory Exam Present: CTA bilaterally - Routine Cardiovascular Exam Present: RRR - Routine Abdominal Exam Comments: recent abd surgery Results - Labs Abnormal lab results 11/25/17 11/25/17 11/25/17 Range/Units 06:28 11:16 17:48 POC Glucose 131 H 162 H 307 H (68-110) mg/dl Assessment and Plan - Assessment (1) Ovarian mass Code(s): N83.9 - Noninflammatory disorder of ovary, fallopian tube and broad ligament, unspecified Status: Acute Plan: post op lap with mass resection - Assessment and Plan 11/25 pt given phenegran suppository for nausea await pathology Discharge Planning: await pathology may need short rehb stau due to advanced age
[2017-11-25 22:25] LABS: Baso # (Auto) 0.1 th/mm3 (0.0-0.2); Baso % (Auto) 1.1 % (0.0-2.0); Hematocrit 31.3 % (35.0-46.0); Hemoglobin 10.4 gm/dL (11.6-15.3); Lymph # (Auto) 0.5 th/mm3 (1.0-4.8); Lymph % (Auto) 6.4 % (9.0-44.0); Mean Corpuscular HGB Conc 33.3 % (32.0-36.0); Mean Corpuscular Hemoglobin 28.3 pg (27.0-34.0); Mean Platelet Volume 10.7 fL (7.0-11.0); Mono # (Auto) 0.3 th/mm3 (0.0-0.9); Mono % (Auto) 4.1 % (0.0-8.0); Neut # (Auto) 6.7 th/mm3 (1.8-7.7); Neut % (Auto) 88.4 % (16.0-70.0); Platelet Count 141 th/mm3 (150-450); Red Blood Count 3.69 mil/mm3 (4.00-5.30); Red Cell Distribution Width 13.4 % (11.6-17.2); White Blood Count 7.6 th/mm3 (4.0-11.0)
[2017-11-25 22:48] LABS: Albumin 2.9 g/dL (3.4-5.0); Anion Gap 7 meq/L (5-15); Aspartate Aminotransferase 19 U/L (15-37); Blood Urea Nitrogen 18 mg/dL (7-18); Calcium 7.7 mg/dL (8.5-10.1); Carbon Dioxide 26.1 meq/L (21.0-32.0); Chloride 105 meq/L (98-107); Glomerular Filtration Rate 56 mL/min (>89); Glucose,Random 302 mg/dL (74-106); Potassium 3.8 meq/L (3.5-5.1); Sodium 138 meq/L (136-145)
[2017-11-25 22:50] LABS: Alanine Aminotransferase 19 U/L (10-53)
[2017-11-25 22:52] LABS: Alkaline Phosphatase 57 U/L (45-117)
[2017-11-26] MEDS: Levothyroxine 125 MCG Tablet PO SCH (05:11)
[2017-11-26] MEDS: Ketorolac Inj 30 MG/ML (IVP) Vial IV.PUSH SCH (05:12)
[2017-11-26] MEDS: Insulin NovoLIN Regular Correctional Sugar Inj SQ SCH ×3 (05:13→18:03)
--- NOTE | 2017-11-26 07:16 | P.PN ---
Subjective Interval history: c/o discomfort, fatigue, nausea no c/o cp, sob she was able to get some rest Physical Exam Vital signs: Vital Signs 11/25/17 10:56 11/25/17 11:00 11/25/17 11:15 Temperature 96.1 F L Pulse Rate 72 69 68 Respiratory Rate 18 19 19 Blood Pressure 143/63 H 135/62 139/65 Pulse Oximetry 100 100 100 11/25/17 11:30 11/25/17 11:45 11/25/17 12:15 Temperature 97.5 F L Pulse Rate 71 72 72 Respiratory Rate 19 19 19 Blood Pressure 146/60 H 144/62 H 145/67 H Pulse Oximetry 100 100 100 11/25/17 12:21 11/25/17 12:34 11/25/17 12:41 Temperature 96.6 F L Pulse Rate 77 78 Respiratory Rate 18 18 Blood Pressure 156/73 H Pulse Oximetry 100 11/25/17 15:00 11/25/17 15:08 11/25/17 20:00 Temperature 97.7 F 98.9 F Pulse Rate 79 79 83 Respiratory Rate 18 16 Blood Pressure 155/73 H 143/60 H Pulse Oximetry 99 97 11/25/17 20:03 11/25/17 22:55 11/26/17 00:00 Temperature 97.8 F Pulse Rate 82 75 Respiratory Rate 16 Blood Pressure 83/34 L 94/38 L Pulse Oximetry 96 11/26/17 00:09 11/26/17 02:35 11/26/17 04:00 Temperature 98.2 F Pulse Rate 73 77 Respiratory Rate 16 Blood Pressure 89/45 L 100/47 L Pulse Oximetry 99 11/26/17 04:02 Temperature Pulse Rate 72 Respiratory Rate Blood Pressure Pulse Oximetry Intake & Output 11/25/17 11/26/17 11/26/17 18:59 06:59 18:59 Intake Total 2400 / 2400 2240 / 2240 Output Total 1550 / 1550 450 / 450 Balance 850 / 850 1790 / 1790 Intake: IV 1100 / 1100 1999 / 1999 D5W/1/2NS + KCL 20 mEq Inj 1999 / 1999 000 ML @ 100 mls/hr IV.CONT . Q10H [facility] Rx#:[id number] LR 1000 mL Inj 1,000 ML @ 30 1000 / 1000 mls/hr IV.SIG .Q24H [facility] Rx#: [id number] Ancef Inj 1,000 MG In NS Inj 100 / 100 100 ML @ 200 mls/hr IV.SIG EVENT PROMOTIONS COORDINATOR [facility] Rx#:[id number] Oral 0 / 0 240 / 240 Anesthesia Amount 1300 / 1300 Output: Urine 900 / 900 450 / 450 Estimated Blood Loss 250 / 250 Urine Amount (Catheter) 400 / 400 100 100 / 100 300 300 / 300 - Constitutional no acute distress - Routine Respiratory Exam Present: CTA bilaterally, rales - Routine Cardiovascular Exam Present: RRR - Routine Abdominal Exam Present: soft, wound (clean and dry) - Routine Neurological Exam Present: alert, oriented X3 - Urinary Catheter Management 300 Cath placed during this visit: yes Reason for continuing: Other continuation reason Insertion date: 11/25/17 100 Cath placed during this visit: no Results - Labs CBC & Chem 7: 11/25/17 21:47 11/25/17 21:47 Laboratory Results - last 24 hr 11/25/17 11/25/17 11/25/17 06:30 11:16 17:48 WBC RBC Hgb Hct MCV MCH MCHC RDW Plt Count MPV Neut % (Auto) Lymph % (Auto) [place] % (Auto) Eos % (Auto) Baso % (Auto) Neut # (Auto) Lymph # (Auto) [place] # (Auto) Eos # (Auto) Baso # (Auto) WBC Differential Differential Comment Sodium Potassium Chloride Carbon Dioxide Anion Gap BUN Creatinine Estimated GFR POC Glucose 162 H 307 H Random Glucose Calcium Total Bilirubin AST ALT Alkaline Phosphatase Total Protein Albumin Blood Type O Positive Blood Type Recheck Required Antibody Screen Negative 11/25/17 11/25/17 11/25/17 21:47 21:47 23:56 WBC 7.6 RBC 3.69 L Hgb 10.4 L Hct 31.3 L MCV 85.0 MCH 28.3 MCHC 33.3 RDW 13.4 Plt Count 141 L MPV 10.7 Neut % (Auto) 88.4 H Lymph % (Auto) 6.4 L [place] % (Auto) 4.1 Eos % (Auto) 0.0 Baso % (Auto) 1.1 Neut # (Auto) 6.7 Lymph # (Auto) 0.5 L [place] # (Auto) 0.3 Eos # (Auto) 0.0 Baso # (Auto) 0.1 WBC Differential . Differential Comment Auto diff final Sodium 138 Potassium 3.8 Chloride 105 Carbon Dioxide 26.1 Anion Gap 7 BUN 18 Creatinine 0.95 Estimated GFR 56 L POC Glucose 309 H Random Glucose 302 H Calcium 7.7 L Total Bilirubin 0.4 AST 19 ALT 19 Alkaline Phosphatase 57 Total Protein 6.0 L Albumin 2.9 L Blood Type Blood Type Recheck Antibody Screen 11/26/17 05:07 WBC RBC Hgb Hct MCV MCH MCHC RDW Plt Count MPV Neut % (Auto) Lymph % (Auto) [place] % (Auto) Eos % (Auto) Baso % (Auto) Neut # (Auto) Lymph # (Auto) [place] # (Auto) Eos # (Auto) Baso # (Auto) WBC Differential Differential Comment Sodium Potassium Chloride Carbon Dioxide Anion Gap BUN Creatinine Estimated GFR POC Glucose 303 H Random Glucose Calcium Total Bilirubin AST ALT Alkaline Phosphatase Total Protein Albumin Blood Type Blood Type Recheck Antibody Screen Assessment and Plan - Plan oob to chair, ambulate with assist, spirometry adat, d/c zoey when ambulatory Q&A, findings at surgery, preliminary path discussed
[2017-11-26] MEDS: Heparin - SQ 10,000 UNITS/ML Vial SQ SCH ×2 (07:49→18:02)
[2017-11-26] MEDS: KCL 20 mEq/D5W/NaCl 0.45% Inj 1,000 ML IV.CONT SCH (09:42)
[2017-11-26] MEDS ORDERED: Potassium Chloride Inj 20 MEQ in Sodium Chloride 0.45 % Inj 1,000 ML IV.CONT SCH (09:45)
[2017-11-26 10:06] LABS: Baso # (Auto) 0.1 th/mm3 (0.0-0.2); Baso % (Auto) 0.4 % (0.0-2.0); Eos # (Auto) 0.1 th/mm3 (0.0-0.4); Eos % (Auto) 0.7 % (0.0-4.0); Hematocrit 30.2 % (35.0-46.0); Hemoglobin 9.9 gm/dL (11.6-15.3); Lymph # (Auto) 1.1 th/mm3 (1.0-4.8); Lymph % (Auto) 8.3 % (9.0-44.0); Mean Corpuscular HGB Conc 32.8 % (32.0-36.0); Mean Corpuscular Hemoglobin 28.3 pg (27.0-34.0); Mean Corpuscular Volume 86.4 fL (80.0-100.0); Mono # (Auto) 0.8 th/mm3 (0.0-0.9); Mono % (Auto) 6.1 % (0.0-8.0); Neut # (Auto) 11.1 th/mm3 (1.8-7.7); Neut % (Auto) 84.5 % (16.0-70.0); Platelet Count 135 th/mm3 (150-450); Red Cell Distribution Width 13.3 % (11.6-17.2); White Blood Count 13.2 th/mm3 (4.0-11.0)
[2017-11-26 10:34] LABS: Calcium 7.5 mg/dL (8.5-10.1); Carbon Dioxide 23.2 meq/L (21.0-32.0); Potassium 5.1 meq/L (3.5-5.1)
[2017-11-26] MEDS: Sod Chloride 0.9% Inj 1,000 ML IV.SIG SCH ×2 (11:36→21:46)
[2017-11-27] MEDS: Insulin NovoLIN Regular Correctional Sugar Inj SQ SCH ×3 (01:30→12:49)
[2017-11-27] MEDS: Levothyroxine 125 MCG Tablet PO SCH (05:38)
[2017-11-27] MEDS: Heparin - SQ 10,000 UNITS/ML Vial SQ SCH (06:00)
--- NOTE | 2017-11-27 08:51 | P.PNONC ---
Subjective Interval history: POD #2 patient is resting in bed no complaints pain controlled eating regular diet without n/v 'has been OOB to chair Simi d/c'd pt will need to urinate before discharge today she will go spend a few days with her daughter Objective Vital Signs/Intake & Output: Vital Signs 11/26/17 11:00 11/26/17 11:30 11/26/17 15:00 Temperature 97.9 F Pulse Rate 76 77 72 Respiratory Rate 18 Blood Pressure 117/59 L Pulse Oximetry 100 11/26/17 15:05 11/26/17 20:00 11/27/17 00:00 Temperature 97.4 F L 98.4 F 98.3 F Pulse Rate 72 73 82 Respiratory Rate 18 17 16 Blood Pressure 104/50 L 106/50 L 115/48 L Pulse Oximetry 98 98 97 11/27/17 00:02 11/27/17 04:00 Temperature 97.6 F Pulse Rate 79 80 Respiratory Rate 16 Blood Pressure 115/54 L Pulse Oximetry 96 Intake & Output 11/26/17 11/27/17 11/27/17 18:59 06:59 18:59 Intake Total 1235 / 1235 1200 / 1200 Output Total 650 / 650 900 / 900 Balance 585 / 585 300 / 300 Weight 49.8 kg Intake: IV 275 / 275 1200 / 1200 KCl Inj 20 MEQ In 1/2 Normal 175 / 175 Saline Inj 1,000 ML @ 100 mls/ hr IV.CONT .Q10H6M [facility] Rx#: [id number] Ofirmev Inj 1,000 mg In 100 ml 100 / 100 200 / 200 @ 400 mls/hr IV.SIG Q8HR [facility] Rx #:[id number] NS Inj 1,000 ML @ 100 mls/hr IV 1000 / 1000 .SIG .Q10H [facility] Rx#:[id number] Oral 960 / 960 Output: Urine 650 / 650 400 / 400 Urine Amount (Catheter) 500 / 500 100 500 / 500 Other: Date of Last Bowel Movement 11/24/17 11/24/17 Result Diagrams: 11/26/17 09:15 11/26/17 09:15 Laboratory Results: Laboratory Results - last 24 hr 11/26/17 11/26/17 11/26/17 09:15 09:15 11:31 WBC 13.2 H D RBC 3.50 L Hgb 9.9 L Hct 30.2 L MCV 86.4 MCH 28.3 MCHC 32.8 RDW 13.3 Plt Count 135 L MPV 11.0 Neut % (Auto) 84.5 H Lymph % (Auto) 8.3 L Saline % (Auto) 6.1 Eos % (Auto) 0.7 Baso % (Auto) 0.4 Neut # (Auto) 11.1 H Lymph # (Auto) 1.1 Saline # (Auto) 0.8 Eos # (Auto) 0.1 Baso # (Auto) 0.1 WBC Differential . Differential Comment Auto diff final Sodium 131 L Potassium 5.1 D Chloride 101 Carbon Dioxide 23.2 Anion Gap 7 BUN 26 H Creatinine 1.34 H Estimated GFR 38 L POC Glucose 450 H Random Glucose 386 H Calcium 7.5 L 11/26/17 11/26/17 11/26/17 14:22 17:54 20:37 WBC RBC Hgb Hct MCV MCH MCHC RDW Plt Count MPV Neut % (Auto) Lymph % (Auto) Saline % (Auto) Eos % (Auto) Baso % (Auto) Neut # (Auto) Lymph # (Auto) Saline # (Auto) Eos # (Auto) Baso # (Auto) WBC Differential Differential Comment Sodium Potassium Chloride Carbon Dioxide Anion Gap BUN Creatinine Estimated GFR POC Glucose 422 H 271 H 125 H Random Glucose Calcium 11/26/17 11/27/17 23:47 05:39 WBC RBC Hgb Hct MCV MCH MCHC RDW Plt Count MPV Neut % (Auto) Lymph % (Auto) Saline % (Auto) Eos % (Auto) Baso % (Auto) Neut # (Auto) Lymph # (Auto) Saline # (Auto) Eos # (Auto) Baso # (Auto) WBC Differential Differential Comment Sodium Potassium Chloride Carbon Dioxide Anion Gap BUN Creatinine Estimated GFR POC Glucose 70 237 H Random Glucose Calcium Medications: Active Medications Generic Name Dose Route Start Last Admin Trade Name Freq PRN Reason Stop Dose Admin Chlorhexidine Gluconate 3 pack 11/25/17 06:15 11/25/17 06:51 Chlorhexidine 2% Cloth TOPICAL 11/28/17 06:01 3 pack SHELTERED WORKSHOP EXECUTIVE DIRECTOR [facility] Administration Heparin Sodium (Porcine) 5,000 units 11/25/17 19:00 11/27/17 06:00 Heparin Inj SQ 5,000 units Q12H [facility] Administration Hydromorphone HCl 0.5 mg 11/25/17 15:18 11/25/17 21:23 Dilaudid Pf Inj IV.PUSH 0.5 mg Q4H PRN Administration PAIN 6-10 IF NOT TOLERATING PO Cefazolin Sodium 1,000 mg/ 100 mls @ 200 mls/hr 11/25/17 06:00 11/25/17 07:30 Sodium Chloride IV.SIG 11/28/17 05:59 Infused SHELTERED WORKSHOP EXECUTIVE DIRECTOR [facility] Infusion Acetaminophen 1,000 mg in 100 mls @ 400 mls/hr 11/26/17 14:00 11/27/17 05:58 Ofirmev Inj IV.SIG Infused Q8HR [facility] Infusion Sodium Chloride 1,000 mls @ 100 mls/hr 11/26/17 11:30 11/26/17 21:46 Ns Inj IV.SIG 100 mls/hr .Q10H [facility] Administration Insulin Human Regular 0 units 11/25/17 12:00 11/27/17 05:44 Novolin R Correctional Sugar Inj SQ 3 units Q6HR [facility] Administration Protocol Levothyroxine Sodium 125 mcg 11/26/17 06:00 11/27/17 05:38 Synthroid PO 125 mcg DAILY@0600 [facility] Administration Metoprolol Tartrate 25 mg 11/25/17 06:15 11/25/17 06:52 Lopressor PO 11/28/17 06:01 Not Given [employer] WORKSH[employer] EXECUTIVE DIRECTOR [facility] Miscellaneous 1 each 11/26/17 09:00 11/26/17 09:41 Pill Splitter OTHER 1 each DAILY [facility] Administration Ondansetron HCl 4 mg 11/25/17 12:00 11/26/17 20:39 Zofran Odt PO 4 mg Q6H PRN Administration NAUSEA OR VOMITING Oxycodone/Acetaminophen 1 tab 11/25/17 10:23 11/26/17 20:39 Percocet 5/325 Mg PO 1 tab Q4H PRN Administration PAIN SCALE 1 TO 5 Povidone Iodine 1 applicatio 11/25/17 06:15 11/25/17 06:51 Betadine 5% Antisepsis Kit EACH NARE 11/28/17 06:01 1 applicatio [employer]SH[employer] EXECUTIVE DIRECTOR [facility] Administration Promethazine HCl 25 mg 11/25/17 16:07 11/25/17 18:10 Phenergan Supp RECTAL 25 mg Q4H PRN Administration NAUSEA Sodium Chloride 2 ml 11/25/17 21:00 11/26/17 21:47 Ns Flush IV.FLUSH Not Given BID [facility] Objective Remarks: GENERAL: Well-nourished, well-developed patient. SKIN: Warm and dry. HEAD: Normocephalic. EYES: No scleral icterus. No injection or drainage. CARDIOVASCULAR: Regular rate and rhythm without murmurs. RESPIRATORY: Breath sounds equal bilaterally. No accessory muscle use. GASTROINTESTINAL: Abdomen soft, dressing c/d/i, incision without s/s of infection EXTREMITIES: No cyanosis, or edema. MUSCULOSKELETAL: Adequate muscle tone. NEUROLOGICAL: No obvious focal deficit. Awake, alert, and oriented x3. PSYCHIATRIC: Appropriate mood and affect; insight and judgment normal. Assessment/Plan (1) Ovarian mass Code(s): N83.9 - Noninflammatory disorder of ovary, fallopian tube and broad ligament, unspecified Status: Acute - Plan s/p X Lap abdominal hysterectomy with BSO, resection of pelvic mass and omentectomy post op orders in chart Percocet, Dilaudid PRN pain Toradol as scheduled for pain OOB to chair when more awake ADAT...clear liquids now IS to bedside OK to remove greer on POD #2 anticipate discharge in 48-72 hours patient will follow up in semiconductor equipment technician/onc clinic X 2 weeks for final pathology 11/27/17 Ok for discharge today after urination, discussed with Dr. Granados and he is in agreement Percocet 5/325 1 PO Q 4 hours prn pain ok to restart home meds post op appt for final pathology in 2 weeks ok to leave incision open to air and clean as instructed continue IS for next few days while awake discharge orders placed and Percocet script in chart
[2017-11-27 08:56] VITALS: BP 123/59; PULSE 98; RESP 18; TEMP 97.8; O2SAT 98
== END 2017-11-27 12:43 | disposition home or self-care (01) ==
LOC: HSDC 05:21 → HDIC 10:23 → HCIN 12:21
PROVIDERS: ADMIT Obstetrics & Gynecology Gynecologic Oncology; ATTEND Obstetrics & Gynecology Gynecologic Oncology